=== PATIENT | male | born 1950 | race Caucasian/White ===

== ENCOUNTER 2018-03-31 17:37 | Inpatient (IN) | payer MEDICARE ==
[2018-03-31] MEDS ORDERED: Oseltamivir 75 MG CAP PO SCH (18:30)
[2018-03-31 19:40] LABS: CKMB 5.9 ng/mL (0-6.6)
[2018-03-31 21:19] LABS: Troponin I 0.414 ng/mL (< 0.028)
[2018-03-31] MEDS ORDERED: Aspirin Chewable 81 MG TAB PO SCH (23:00)
--- NOTE | 2018-04-01 00:46 | CON ---
DATE OF CONSULTATION: CONSULTING PHYSICIAN: Omar Tobias MD REQUESTING PHYSICIAN: ER physician. REASON FOR CONSULTATION: Need for maintenance hemodialysis. IMPRESSION: 1. End-stage renal disease, hemodialysis dependent on Wednesday, Wednesday, Wednesday, due for dialysis tomorrow. 2. Chronic obstructive pulmonary disease exacerbation. 3. Congestive heart failure. PLAN: 1. There is no emergent indication for renal replacement therapy (hemodialysis); therefore, the patient will remain on the normal schedule of Wednesday, Wednesday, and Wednesday. 2. Further management to be dependent on the clinical course as well as the further recommendation from the primary service. HISTORY OF PRESENT ILLNESS: A 67-year-old gentleman with end-stage renal disease, he is hemodialysis dependent on a Wednesday, Wednesday, and Wednesday under the supervision of Dr. Crowe, who presented here as a transfer from , where the patient initially presented with cough productive of greenish sputum with blood tinge. The patient felt to develop these progressively worsening cough with fever for about a week and felt the patient is more or less in COPD exacerbation and transferred over to us here for further management to include the renal replacement therapy. PAST MEDICAL HISTORY: Significant for end-stage renal disease, hemodialysis dependent; type 2 diabetes, hypertension. MEDICATIONS: Reviewed and as documented on [employer]. ALLERGIES: NO KNOWN DRUG ALLERGIES. FAMILY HISTORY: Not significantly related to presenting illness. REVIEW OF SYSTEMS: As documented in the body of the history. All other systems were reviewed and found not to be significantly related to present illness. PHYSICAL EXAMINATION: GENERAL: The patient was noted to be hemodynamically stable. HEENT: Unremarkable. CARDIOVASCULAR SYSTEM: First and second heart sounds were heard. RESPIRATORY SYSTEM: Clear to auscultation. DIGESTIVE SYSTEM: Revealed a benign abdomen. EXTREMITIES: No peripheral edema. SKIN EXAMINATION: No new gross rash. LYMPHATICS: No peripheral lymphadenopathy. SUMMARY: A 67-year-old gentleman with end-stage renal disease, who presented here as a transfer with possible COPD exacerbation. Thank you for this consultation. We will follow with you. Job ID: [id number]
[2018-04-01] MEDS ORDERED: Dextrose 5% in Water 1,000 ML IV PRN (01:04)
[2018-04-01] MEDS ORDERED: Nitroglycerin 0.4 MG TAB (25 Tab Bottle) PO PRN (01:04)
[2018-04-01] MEDS ORDERED: Insulin Regular 300 UNITS/3 ML VIAL SC PRN ×2 (01:04)
[2018-04-01] MEDS ORDERED: Dextrose 50% Abboject 50 ML SYRINGE SLOW IVP PRN (01:04)
[2018-04-01] MEDS ORDERED: Senokot S 8.6-50 MG TAB PO PRN (01:09)
[2018-04-01] MEDS ORDERED: Ondansetron ODT 4 MG TAB PO PRN (01:09)
[2018-04-01] MEDS ORDERED: Ondansetron PF 4 MG/2 ML Vial IVP PRN (01:09)
[2018-04-01] MEDS ORDERED: Acetaminophen 325 MG TAB PO PRN (01:09)
[2018-04-01 01:10] LABS: Critical Call Chem Troponin I RESULT DECREASING
[2018-04-01] MEDS ORDERED: Doxycycline 100 MG CAP PO SCH (01:15)
[2018-04-01] MEDS ORDERED: predniSONE 20 MG TAB PO SCH (01:15)
--- NOTE | 2018-04-01 01:29 | HP ---
The patient was seen and examined on 03/31/2018. PRIMARY BANK RECONCILIATOR: Dr. Nelson. PRIMARY CARE PHYSICIAN: Dr. Smith. CHIEF COMPLAINT: Cough. HISTORY OF PRESENT ILLNESS: The patient is a 67-year-old male with diabetes mellitus type 2, hypertension; chronic respiratory failure, on home oxygen at night; and end-stage renal disease, on hemodialysis; presented to the emergency room at [facility] with cough. The cough has been ongoing for last 1 week or so. It is progressively getting worse. He has been having greenish phlegm. He also had shortness of breath and wheezing. No significant leg swelling reported. He had intermittent chills. No aggravating or relieving factor reported. No sick contacts reported. He denies any orthopnea, paroxysmal nocturnal dyspnea, syncope, palpitations, or recent travel. In the emergency room, initial vital signs showed temperature 98.7, respirations 20, pulse of 82, blood pressure 168/99 with O2 saturation 92% on 2 L nasal cannula. Chest x-ray was negative for significant infiltrate. His troponin was 0.4 with CK-MB 5.6. BNP was 1949. His troponin last year was 0.1. Influenza testing was negative. He received Lasix in the emergency room. PAST MEDICAL HISTORY: 1. End-stage renal disease, on hemodialysis Wednesday, Wednesday, Wednesday. 2. Coronary artery disease. 3. COPD. 4. History of [place]. 5. Hyperlipidemia. 6. Chronic respiratory failure, on home oxygen. 7. Congestive heart failure. Ejection fraction 20% in the past. 8. Diabetes mellitus type 2. 9. Hypertension. PAST SURGICAL HISTORY: 1. Pacemaker placement. 2. Hernia repair. 3. Coronary stent placement. 4. Dialysis access. ALLERGIES: THE PATIENT DENIES ANY DRUG ALLERGIES. CURRENT HOME MEDICATION: The patient is unable to recall any of his home medication. Family to get accurate list of medications. SOCIAL HISTORY: The patient currently lives at home with his family. He makes his own decision with the help of his family. No current use of smoking, alcohol, or drug use. FAMILY HISTORY: Positive for heart disease. REVIEW OF SYSTEMS: All other review of systems were reviewed and were found negative. PHYSICAL EXAMINATION: VITAL SIGNS: As discussed above. GENERAL: A 67-year-old male, in mild distress due to coughing. HEENT: Head is atraumatic, normocephalic. Sclerae anicteric. Moist mucous membranes. No oral lesion appreciated. NECK: Supple. No JVD appreciated. LUNGS: Bilateral wheezing with scattered rhonchi. There were few rales at bases. HEART: S1 and S2 present. Regular rate and rhythm. No heaves or pulsation noted. ABDOMEN: Obese, soft. Bowel sounds present. EXTREMITIES: 1+ edema in bilateral lower extremity next. SKIN: Warm and dry. LYMPH NODES: No palpable lymph nodes in the neck. PERIPHERAL VASCULAR: Radial pulses palpable bilaterally. MUSCULOSKELETAL: No joint swelling or tenderness. LABORATORY FINDINGS: WBC 8.4 with neutrophils 76.6, hemoglobin 14.5, hematocrit 46.3. Chemistry showed sodium 140, potassium 4.7, chloride 100, bicarb 26, BUN 44, creatinine 6.34. Troponin 0.401 with normal CK-MB. BNP 1950. LFTs in normal range. Influenza testing was negative. Chest x-ray by my review showed cardiomegaly without definite infiltrate. EKG by my review showed paced rhythm. IMPRESSION: 1. Acute hypoxic respiratory failure secondary to acute bronchitis, suspected pneumonia, questionable viral. 2. Chronic obstructive pulmonary disease exacerbation. 3. Chronic systolic heart failure, ejection fraction 20% range in the past. 4. End-stage renal disease, on hemodialysis. 5. Diabetes mellitus type 2. 6. Coronary artery disease, status post stent placement in the past. 7. Hypertension. 8. Elevated troponins, probably secondary to demand ischemia. 9. Hyperlipidemia. PLAN: 1. The patient will be monitored in the telemetry unit due to elevated cardiac enzymes. We will continue oxygen, nebulizer treatments. Echocardiogram will be obtained. We will confirm all of his home medications. Insulin sliding scale. Empiric antibiotics for pneumonia. We will get respiratory viral panel. Nephrology consult for dialysis. Please note, the patient has also already been seen by Dr. Nelson. Recheck labs in a.m. Cardiology will be consulted as well. 2. Plan of care was discussed with the patient in detail. He stated understanding. 3. The patient will require 2 to 3 days for stabilization. Job ID: [id number]
[2018-04-01] MEDS: cefTRIAXone\\ROCEPHIN 1 GM in Sodium Chloride 0.9% 100 ML IVPB SCH (01:41)
[2018-04-01] MEDS: Diabetic Tussin 200 MG/10 ML UDCUP PO PRN (01:41)
[2018-04-01 02:03] LABS: INR-International Normal Ratio 1.3; PTT 33.7 SEC (22.9-36.1); Prothrombin Time 16.1 SEC (12.0-14.7)
[2018-04-01 02:15] LABS: Band 2 % (5-11); Hemoglobin 13.6 g/dL (14.0-18.0); Lymphocytes 5 % (21-51); MDiff Complete? YES; Macrocytosis SLIGHT = 6-15 cells (100X) (0-5/hpf); Mean Corpuscular HGB CONC 31.1 g/dL (32.0-36.0); Mean Corpuscular Hemoglobin 32.2 pg (27.0-31.0); Mean Platelet Volume 7.1 fL (7.4-10.4); Monocytes 8 % (0-10); Neutrophil 85 % (42-75); Platelet Count 178 thou/uL (130-400); Platelet Morphology Comment Appears Adequate; Red Blood Cell (RBC) Count 4.21 mill/uL (4.70-6.10); White Blood Cell (WBC) Count 6.5 thou/uL (4.8-10.8)
[2018-04-01 02:19] LABS: Anion Gap 20 mmol/L (10-20); BUN (Urea Nitrogen) 61 mg/dL (8.4-25.7); Calc. Creatinine Clearance 0 mL/min (70-130); Calcium 8.8 mg/dL (7.8-10.44); Carbon Dioxide 22 mmol/L (23-31); Chloride 99 mmol/L (98-107); Estimated GFR-MDRD 9; Glucose 123 mg/dL (80-115); Potassium 4.5 mmol/L (3.5-5.1); Sodium 136 mmol/L (136-145)
[2018-04-01 02:34] VITALS: BMI 35.6
[2018-04-01] MEDS: Cyanocobalamin (Vitamin B-12) 1,000 MCG TAB PO SCH (09:00)
[2018-04-01] MEDS: Folic Acid 1 MG TAB PO SCH (09:00)
[2018-04-01] MEDS: Aspirin 325 MG TAB PO SCH (09:00)
[2018-04-01] MEDS: Doxycycline 100 MG CAP PO SCH ×2 (09:00→20:47)
[2018-04-01] MEDS: Famotidine 20 MG TAB PO SCH ×2 (09:00→20:49)
[2018-04-01] MEDS ORDERED: Heparin 10,000 UNITS/ 10 ML VIAL ONE (11:00)
[2018-04-01] MEDS: guaiFENesin ER 600 MG TAB PO SCH ×2 (12:38→20:49)
--- NOTE | 2018-04-01 12:43 | PDOC.PN ---
- Subjective Encounter Start Date: 04/01/18 Encounter Start Time: 10:20 Subjective: sob is better -: no chest pain or palp -: gets HD on M/W/F - Objective Resuscitation Status - Order Detail: 04/01/18 01:09 Resuscitation Status Routine Resuscitation Status: FULL: Full Resuscitation MAR Reviewed: Yes Vital Signs & Weight: Vital Signs (12 hours) Temp Pulse Resp BP Pulse Ox 04/01/18 08:06 96 04/01/18 08:04 90 L 04/01/18 08:01 84 169/72 H 88 L 04/01/18 07:58 98.1 F 82 18 187/72 H 86 L 04/01/18 06:40 90 L 04/01/18 06:37 81 16 04/01/18 04:00 98.4 F 81 18 177/79 H 96 04/01/18 01:50 83 16 Weight Weight 269 lb 14.4 oz I&O: 03/31/18 04/01/18 04/02/18 06:59 06:59 06:59 Intake Total 300 Output Total 200 Balance 100 Result Diagrams: 04/01/18 01:39 04/01/18 01:39 Additional Labs: Accuchecks 04/01/18 05:26 POC Glucose 126 H Phys Exam - Physical Examination HEENT: PERRLA, sclera anicteric Neck: no JVD, supple Respiratory: no rales, wheezing present Cardiovascular: RRR, no significant murmur Gastrointestinal: soft, non-tender, positive bowel sounds Musculoskeletal: pulses present, edema present Neurological: non-focal, moves all 4 limbs Psychiatric: normal affect, A&O x 3 Dx/Plan (1) COPD exacerbation Code(s): J44.1 - CHRONIC OBSTRUCTIVE PULMONARY DISEASE W (ACUTE) EXACERBATION Status: Acute (2) Volume overload Code(s): E87.70 - FLUID OVERLOAD, UNSPECIFIED Status: Acute (3) ESRD (end stage renal disease) on dialysis Code(s): N18.6 - END STAGE RENAL DISEASE; Z99.2 - DEPENDENCE ON RENAL DIALYSIS Status: Chronic (4) Obesity Code(s): E66.9 - OBESITY, UNSPECIFIED Status: Chronic (5) CAD (coronary artery disease) Code(s): I25.10 - ATHSCL HEART DISEASE OF [place] CORONARY ARTERY W/O ANG PCTRS Status: Chronic Qualifiers: Coronary Disease-Associated Artery/Lesion type: [place] artery [place] vs. transplanted heart: [place] heart Associated angina: with stable angina Qualified Code(s): I25.118 - Atherosclerotic heart disease of [place] coronary artery with other forms of angina pectoris (6) Acute exacerbation of CHF (congestive heart failure) Code(s): I50.9 - HEART FAILURE, UNSPECIFIED Status: Acute Qualifiers: Heart failure type: combined systolic and diastolic Qualified Code(s): I50.43 - Acute on chronic combined systolic (congestive) and diastolic ( congestive) heart failure Comment: ef of 20% (7) DM type 2 (diabetes mellitus, type 2) Status: Chronic Qualifiers: Diabetes mellitus group home insulin use: with terminal block assembler use Diabetes mellitus complication status: with kidney complications Diabetes mellitus complication detail: with chronic kidney disease Chronic kidney disease stage : on chronic dialysis Qualified Code(s): E11.22 - Type 2 diabetes mellitus with diabetic chronic kidney disease; N18.6 - End stage renal disease; Z79.4 - halfway (current) use of insulin; Z99.2 - Dependence on renal dialysis (8) HTN (hypertension) Code(s): I10 - ESSENTIAL (PRIMARY) HYPERTENSION Status: Chronic Qualifiers: Hypertension type: essential hypertension Qualified Code(s): I10 - Essential (primary) hypertension (9) Demand ischemia of myocardium Code(s): I24.8 - OTHER FORMS OF ACUTE ISCHEMIC HEART DISEASE Status: Acute (10) Afib Code(s): I48.91 - UNSPECIFIED ATRIAL FIBRILLATION Status: Chronic Qualifiers: Atrial fibrillation type: paroxysmal Qualified Code(s): I48.0 - Paroxysmal atrial fibrillation - Plan is on duonebs, ceftriaxone, doxy and asp -: will continue home dose of amiod, eliquis, home insulin -: for HD with fluid removal today -: to amb as tolerated in hallway (amb indep at home) * . Review of Systems - Medications/Allergies Allergies/Adverse Reactions: Allergies Allergy/AdvReac Type Severity Reaction Status Date / Time unknown antibiotic Allergy renal Uncoded 10/05/13 11:50 failure Medications: Current Medications Acetaminophen (Tylenol) 650 mg PO Q4H PRN PRN Reason: Headache/Fever/Mild Pain (1-3) Albuterol/Ipratropium (Duoneb) 3 ml NEB [id number] [place] Last Admin: 04/01/18 11:28 Dose: Not Given Albuterol/Ipratropium (Duoneb) 3 ml NEB [id number] PRN PRN Reason: SOB &/or Wheezing Aspirin (Aspirin) 325 mg PO DAILY [facility] Cyanocobalamin (Vitamin B-12) 1,000 mcg PO DAILY [facility] Dextrose/Water (Dextrose 50%) 25 gm SLOW IVP PRN PRN PRN Reason: Hypoglycemia Doxycycline Hyclate (Vibramycin) 100 mg PO BID [facility] Famotidine (Pepcid) 20 mg PO BID [facility] Folic Acid (Folvite) 1 mg PO DAILY [facility] Glucagon (Glucagon) 1 mg IM PRN PRN PRN Reason: Hypoglycemia Guaifenesin (Mucinex) 600 mg PO Q12HR [facility] Last Admin: 04/01/18 12:38 Dose: Not Given Guaifenesin (Robitussin Sf) 200 mg PO Q4H PRN PRN Reason: Cough Last Admin: 04/01/18 01:41 Dose: 200 mg Ceftriaxone Sodium 1 gm/ (Sodium Chloride) 100 mls @ 200 mls/hr IVPB Q24HR [facility] Last Admin: 04/01/18 01:41 Dose: 100 mls Dextrose/Water (D5w) 1,000 mls @ 0 mls/hr IV .Q0M PRN PRN Reason: Hypoglycemia Insulin Human Regular (Humulin R) 0 units SC .MODERATE SLIDING SC PRN PRN Reason: Moderate Correctional Scale Insulin Human Regular (Humulin R) 0 units SC .BEDTIME SLIDING SC PRN PRN Reason: Bedtime Correctional Scale Nitroglycerin (Nitrostat) 0.4 mg PO Q5MIN PRN PRN Reason: Chest Pain Ondansetron HCl (Zofran Odt) 4 mg PO Q6H PRN PRN Reason: Nausea/Vomiting Ondansetron HCl (Zofran) 4 mg IVP Q6H PRN PRN Reason: Nausea/Vomiting Senna/Docusate Sodium (Senokot S) 2 tab PO BID PRN PRN Reason: Constipation
--- NOTE | 2018-04-01 18:25 | CON ---
DATE OF CONSULTATION: 04/01/2018 TYPE OF CONSULTATION: Cardiology. REASON FOR CONSULTATION: Elevated troponin. HISTORY OF PRESENT ILLNESS: Mr. Eaton is a pleasant 67-year-old white gentleman, patient of Dr. Francisco in [place] [facility] [place] [facility], who comes to the hospital for a cough. He has COPD and was admitted, diagnosed with possible COPD exacerbation with bronchitis and admitted to the hospital. In the process, he had some troponins drawn that were mildly elevated. So, Cardiology is being consulted. He has end-stage renal disease on hemodialysis Wednesday, Wednesday, and Wednesday with Dr. Henry. He also has a history of coronary artery disease and reduced ejection fraction of 20%. Currently, he denies any chest pain, tightness, or pressure. His shortness of breath is a little bit worse than normal, but is better since he got dialyzed this morning. PAST MEDICAL HISTORY: 1. End-stage renal disease on hemodialysis. 2. Coronary artery disease. 3. COPD. 4. History of [place] in the past. 5. Hyperlipidemia. 6. Chronic respiratory failure on home O2. 7. History of heart failure with EF of 20% on most recent evaluation in the hospital. 8. Type 2 diabetes. 9. Hypertension. PAST SURGICAL HISTORY: 1. Pacemaker placement, possible AICD. 2. Hernia repair. 3. Coronary stent placement. 4. Dialysis access. ALLERGIES: NO KNOWN DRUG ALLERGIES. OUTPATIENT MEDICATIONS: 1. Lipitor 80 mg at bedtime. 2. Levemir. 3. Amiodarone 2 tablets b.i.d. 4. Humalog. 5. Eliquis 5 mg b.i.d. 6. Aspirin 325 a day. SOCIAL HISTORY: No alcohol, tobacco, or drugs. FAMILY HISTORY: No early coronary artery disease. REVIEW OF SYSTEMS: A 12-point review of systems was done and was found to be negative unless stated in the history of present illness. PHYSICAL EXAMINATION: VITAL SIGNS: Temperature 97.7, pulse 79, respiratory rate 16, saturation 95% on 3 L nasal cannula, and blood pressure 141/50. GENERAL: Awake, alert, and oriented x3, in no distress. HEENT: Normocephalic and atraumatic. NECK: Supple. LUNGS: Have reduced breath sounds bilaterally. CARDIOVASCULAR: S1 and S2. No S3 or S4. Irregular heart rate in the 80s. ABDOMEN: Soft. Positive bowel sounds. EXTREMITIES: 1+ edema. SKIN: Warm and dry. LABORATORY DATA: Laboratory work was reviewed. CBC with a white count of 6.5, hemoglobin of 13, hematocrit of 43, and platelet count of 178. Coags were negative. Chemistry with a troponin of 0.4, 0.4, and 0.3 and creatinine is 6. ASSESSMENT: 1. Non-ST elevation myocardial infarction. 2. History of ischemic cardiomyopathy, ejection fraction of 20% most recently. 3. End-stage renal disease. 4. Chronic obstructive pulmonary disease with acute exacerbation. PLAN: 1. Most likely demand ischemia from his acute COPD exacerbation. He is not having any anginal symptoms at this time. Conservative therapy for now. 2. Continue pulmonary toilet per primary team. 3. Continue hemodialysis per Dr. Henry and Dr. Nelson. 4. Echocardiogram to be done. 5. We will follow. No plan to do heart catheterization at this time. He will have to be discharged home, probably follow up as an outpatient with his primary clinical data abstractor and he will need if not done in the last year, further risk stratification with a stress test. Job ID: [id number]
--- NOTE | 2018-04-01 19:44 | PRG ---
DATE OF SERVICE: 04/01/2018 SUBJECTIVE: The patient is seen and examined. Seems to be doing okay at dialysis. The patient seems to become hypoxic whenever the patient falls asleep, has significant sleep apnea. The patient noted to be hemodynamically stable. OBJECTIVE: VITAL SIGNS: Afebrile, temperature 97.7, pulse 79, respiratory rate of 16, O2 saturations are 95% on 3 L, and blood pressure 141/50. HEENT: Unremarkable. CARDIOVASCULAR SYSTEM: First and second heart sounds were heard. EXTREMITIES: Showed no significant peripheral edema except the access hand. NEURO: Alert and oriented. No lateralizing sign. LYMPHATICS: No peripheral lymphadenopathy. IMPRESSION: 1. End-stage renal disease on hemodialysis. 2. Chronic obstructive pulmonary disease. 3. Systolic congestive heart failure. PLAN: The patient to continue with dialysis with ultrafiltration as tolerated by hemodynamics for further management to be dependent on the clinical course. Job ID: [id number]
[2018-04-01] MEDS: Insulin Glargine 5 UNITS in Pre-Filled Syringe 1 EACH SC SCH (20:46)
[2018-04-01] MEDS: Atorvastatin Calcium 40 MG TAB PO SCH (20:47)
[2018-04-01] MEDS: Amiodarone 200 MG TAB PO SCH (20:48)
[2018-04-01] MEDS: Apixaban 5 MG TAB PO SCH (20:49)
[2018-04-01] MEDS ORDERED: Amiodarone 200 MG TAB PO SCH (21:00)
[2018-04-01] MEDS ORDERED: Non-Formulary Item 1 EACH (Atorvastatin Calcium [Lipitor] 80 MG) PO SCH (21:00)
[2018-04-01] MEDS ORDERED: Levemir Flexpen 100 UNITS/ML PEN SC SCH (21:00)
[2018-04-02] MEDS: cefTRIAXone\\ROCEPHIN 1 GM in Sodium Chloride 0.9% 100 ML IVPB SCH (02:04)
[2018-04-02 06:44] LABS: #Basophils 0.1 thou/uL (0.0-0.2); #Eosinphils 0.2 thou/uL (0.0-0.7); #Lymphocytes 0.9 thou/uL (1.20-3.40); #Monocytes 0.9 thou/uL (0.11-0.59); #Neutrophils 4.8 thou/uL (1.40-6.50); %Basophils 0.8 % (0.0-1.0); %Eosinophils 2.6 % (0.0-10.0); %Monocytes 13.8 % (0.0-10.0); %Neutrophils 69.9 % (42.0-75.0); Hemoglobin 14.2 g/dL (14.0-18.0); Mean Corpuscular HGB CONC 31.5 g/dL (32.0-36.0); Mean Corpuscular Hemoglobin 32.3 pg (27.0-31.0); Mean Platelet Volume 7.3 fL (7.4-10.4); Platelet Count 203 thou/uL (130-400); RBC Distribution Width 13.7 % (11.5-14.5); Red Blood Cell (RBC) Count 4.39 mill/uL (4.70-6.10); White Blood Cell (WBC) Count 6.8 thou/uL (4.8-10.8)
[2018-04-02 07:01] LABS: Anion Gap 18 mmol/L (10-20); BUN (Urea Nitrogen) 39 mg/dL (8.4-25.7); Calc. Creatinine Clearance 20 mL/min (70-130); Calcium 8.9 mg/dL (7.8-10.44); Carbon Dioxide 27 mmol/L (23-31); Chloride 97 mmol/L (98-107); Estimated GFR-MDRD 9; Glucose 128 mg/dL (80-115); Potassium 3.9 mmol/L (3.5-5.1); Sodium 138 mmol/L (136-145)
[2018-04-02] MEDS: Famotidine 20 MG TAB PO SCH ×2 (08:30→21:21)
[2018-04-02] MEDS: Aspirin 325 MG TAB PO SCH (08:30)
[2018-04-02] MEDS: Folic Acid 1 MG TAB PO SCH (08:30)
[2018-04-02] MEDS: Doxycycline 100 MG CAP PO SCH ×2 (08:30→21:20)
[2018-04-02] MEDS: guaiFENesin ER 600 MG TAB PO SCH ×2 (08:30→21:21)
[2018-04-02] MEDS: Cyanocobalamin (Vitamin B-12) 1,000 MCG TAB PO SCH (08:30)
[2018-04-02] MEDS: Apixaban 5 MG TAB PO SCH ×2 (08:30→21:21)
[2018-04-02] MEDS: Amiodarone 200 MG TAB PO SCH ×2 (08:30→21:20)
--- NOTE | 2018-04-02 14:22 | PDOC.PN ---
- Subjective Encounter Start Date: 04/02/18 Encounter Start Time: 11:00 Subjective: sob is better, no chest pain -: is amb in room per patient - Objective Resuscitation Status - Order Detail: 04/01/18 01:09 Resuscitation Status Routine Resuscitation Status: FULL: Full Resuscitation MAR Reviewed: Yes Vital Signs & Weight: Vital Signs (12 hours) Temp Pulse Resp BP BP Pulse Ox 04/02/18 12:08 98.5 F 74 18 190/86 H 92 L 04/02/18 10:59 72 16 04/02/18 08:45 99 04/02/18 07:28 90 L 04/02/18 07:27 68 16 04/02/18 07:12 97.4 F L 71 18 142/85 H 99 04/02/18 04:05 98.2 F 79 14 142/75 H 95 04/02/18 03:23 92 L 04/02/18 02:36 73 18 92 L Weight Weight 259 lb 6.4 oz I&O: 04/01/18 04/02/18 04/03/18 06:59 06:59 06:59 Intake Total 300 400 Output Total 200 5875 Balance 100 -5475 Result Diagrams: 04/02/18 05:45 04/02/18 05:45 Additional Labs: Accuchecks 04/02/18 04/02/18 04/01/18 10:31 05:29 16:54 POC Glucose 119 H 123 H 190 H Phys Exam - Physical Examination HEENT: PERRLA, moist MMs Neck: no JVD, supple Respiratory: no wheezing, no rales rhonchi+, basal rales+ Cardiovascular: RRR, no significant murmur Gastrointestinal: soft, non-tender, positive bowel sounds Musculoskeletal: no edema, pulses present Neurological: non-focal, moves all 4 limbs Psychiatric: normal affect, A&O x 3 Dx/Plan (1) COPD exacerbation Code(s): J44.1 - CHRONIC OBSTRUCTIVE PULMONARY DISEASE W (ACUTE) EXACERBATION Status: Acute (2) Volume overload Code(s): E87.70 - FLUID OVERLOAD, UNSPECIFIED Status: Acute (3) ESRD (end stage renal disease) on dialysis Code(s): N18.6 - END STAGE RENAL DISEASE; Z99.2 - DEPENDENCE ON RENAL DIALYSIS Status: Chronic (4) Obesity Code(s): E66.9 - OBESITY, UNSPECIFIED Status: Chronic (5) CAD (coronary artery disease) Code(s): I25.10 - ATHSCL HEART DISEASE OF [place] CORONARY ARTERY W/O ANG PCTRS Status: Chronic Qualifiers: Coronary Disease-Associated Artery/Lesion type: [place] artery [place] vs. transplanted heart: [place] heart Associated angina: with stable angina Qualified Code(s): I25.118 - Atherosclerotic heart disease of [place] coronary artery with other forms of angina pectoris (6) Acute exacerbation of CHF (congestive heart failure) Code(s): I50.9 - HEART FAILURE, UNSPECIFIED Status: Acute Qualifiers: Heart failure type: combined systolic and diastolic Qualified Code(s): I50.43 - Acute on chronic combined systolic (congestive) and diastolic ( congestive) heart failure Comment: ef of 20% (7) DM type 2 (diabetes mellitus, type 2) Status: Chronic Qualifiers: Diabetes mellitus moth exterminator insulin use: with moth exterminator use Diabetes mellitus complication status: with kidney complications Diabetes mellitus complication detail: with chronic kidney disease Chronic kidney disease stage : on chronic dialysis Qualified Code(s): E11.22 - Type 2 diabetes mellitus with diabetic chronic kidney disease; N18.6 - End stage renal disease; Z79.4 - roasterman (current) use of insulin; Z99.2 - Dependence on renal dialysis (8) HTN (hypertension) Code(s): I10 - ESSENTIAL (PRIMARY) HYPERTENSION Status: Chronic Qualifiers: Hypertension type: essential hypertension Qualified Code(s): I10 - Essential (primary) hypertension (9) Demand ischemia of myocardium Code(s): I24.8 - OTHER FORMS OF ACUTE ISCHEMIC HEART DISEASE Status: Acute (10) Afib Code(s): I48.91 - UNSPECIFIED ATRIAL FIBRILLATION Status: Chronic Qualifiers: Atrial fibrillation type: paroxysmal Qualified Code(s): I48.0 - Paroxysmal atrial fibrillation - Plan is on ceftriaxone and doxy, will switch to omnicef in am -: continue asp, nebs, eliquis, amiodarone and lantus -: will add procardia daily starting now -: ef of 20% with dilated rv and rvsp of 45 -: needs some more fluid removal with his scheduled HD * . Review of Systems - Medications/Allergies Allergies/Adverse Reactions: Allergies Allergy/AdvReac Type Severity Reaction Status Date / Time unknown antibiotic Allergy renal Uncoded 10/05/13 11:50 failure Medications: Current Medications Acetaminophen (Tylenol) 650 mg PO Q4H PRN PRN Reason: Headache/Fever/Mild Pain (1-3) Albuterol/Ipratropium (Duoneb) 3 ml NEB [id number] [facility] Last Admin: 04/02/18 10:59 Dose: 3 ml Albuterol/Ipratropium (Duoneb) 3 ml NEB [id number] PRN PRN Reason: SOB &/or Wheezing Amiodarone HCl (Cordarone) 400 mg PO BID [facility] Last Admin: 04/02/18 08:30 Dose: 400 mg Apixaban (Eliquis) 5 mg PO BID [facility] Last Admin: 04/02/18 08:30 Dose: 5 mg Aspirin (Aspirin) 325 mg PO DAILY [facility] Last Admin: 04/02/18 08:30 Dose: 325 mg Atorvastatin Calcium (Lipitor) 80 mg PO HS [facility] Last Admin: 04/01/18 20:47 Dose: 80 mg Cyanocobalamin (Vitamin B-12) 1,000 mcg PO DAILY [facility] Last Admin: 04/02/18 08:30 Dose: 1,000 mcg Dextrose/Water (Dextrose 50%) 25 gm SLOW IVP PRN PRN PRN Reason: Hypoglycemia Doxycycline Hyclate (Vibramycin) 100 mg PO BID [facility] Last Admin: 04/02/18 08:30 Dose: 100 mg Famotidine (Pepcid) 20 mg PO BID [facility] Last Admin: 04/02/18 08:30 Dose: 20 mg Folic Acid (Folvite) 1 mg PO DAILY [facility] Last Admin: 04/02/18 08:30 Dose: 1 mg Glucagon (Glucagon) 1 mg IM PRN PRN PRN Reason: Hypoglycemia Guaifenesin (Mucinex) 600 mg PO Q12HR [facility] Last Admin: 04/02/18 08:30 Dose: 600 mg Guaifenesin (Robitussin Sf) 200 mg PO Q4H PRN PRN Reason: Cough Last Admin: 04/01/18 01:41 Dose: 200 mg Ceftriaxone Sodium 1 gm/ (Sodium Chloride) 100 mls @ 200 mls/hr IVPB Q24HR [facility] Last Admin: 04/02/18 02:04 Dose: 100 mls Dextrose/Water (D5w) 1,000 mls @ 0 mls/hr IV .Q0M PRN PRN Reason: Hypoglycemia Insulin Glargine 5 units/ (Miscellaneous Medication) 0.05 mls @ 0 mls/hr SC HS [facility] Last Admin: 04/01/18 20:46 Dose: 0.05 mls Insulin Human Regular (Humulin R) 0 units SC .MODERATE SLIDING SC PRN PRN Reason: Moderate Correctional Scale Insulin Human Regular (Humulin R) 0 units SC .BEDTIME SLIDING SC PRN PRN Reason: Bedtime Correctional Scale Nitroglycerin (Nitrostat) 0.4 mg PO Q5MIN PRN PRN Reason: Chest Pain Ondansetron HCl (Zofran Odt) 4 mg PO Q6H PRN PRN Reason: Nausea/Vomiting Ondansetron HCl (Zofran) 4 mg IVP Q6H PRN PRN Reason: Nausea/Vomiting Senna/Docusate Sodium (Senokot S) 2 tab PO BID PRN PRN Reason: Constipation Sodium Chloride (Flush - Normal Saline) 10 ml IVF Q12HR [facility] Last Admin: 04/02/18 08:30 Dose: 10 ml Sodium Chloride (Flush - Normal Saline) 10 ml IVF PRN PRN PRN Reason: Saline Flush
--- NOTE | 2018-04-02 15:45 | PDOC.CTH ---
Cardiology Progress Note - Subjective Doing well. No chest pain, tightness, pressure. - Objective Vital Signs Temp Pulse Resp BP BP Pulse Ox 04/02/18 14:31 74 12 04/02/18 12:08 98.5 F 74 18 190/86 H 92 L 04/02/18 10:59 72 16 04/02/18 08:45 99 04/02/18 07:28 90 L 04/02/18 07:27 68 16 04/02/18 07:12 97.4 F L 71 18 142/85 H 99 04/02/18 04:05 98.2 F 79 14 142/75 H 95 Weight 259 lb 6.4 oz 04/01/18 04/02/18 04/03/18 06:59 06:59 06:59 Intake Total 300 400 Output Total 200 5875 Balance 100 -5475 - Physical Examination General/Neuro: alert & oriented x3, NAD Neck: no JVD present Lungs: CTA, unlabored respirations Heart: RRR Abdomen: NT/ND Extremities: + edema B (1+) - Telemetry Telemetry Rhythm: NSR, BiV paced. - Labs Result Diagrams: 04/02/18 05:45 04/02/18 05:45 Troponin/CKMB CK-MB (CK-2) 5.9 ng/mL (0-6.6) 03/31/18 18:37 Troponin I 0.390 ng/mL (< 0.028) H* 04/01/18 00:31 - Assessment/Plan 1. NSTEMI 2. Ischemic CM EF at 15-20% 3. AICD 4. ESRD 5. COPD with acute exacerbation PLAN: - Elevated troponins likely demand ischemia from acute bronchitis. - CV stable. - Will sign off. Please call [facility] any questions.
[2018-04-02] MEDS: Carvedilol 6.25 MG TAB PO SCH (16:59)
--- NOTE | 2018-04-02 20:00 | PRG ---
DATE OF SERVICE: 04/02/2018 SUBJECTIVE: The patient is seen and examined. Noted with the following vital signs. OBJECTIVE: VITAL SIGNS: Afebrile, temperature 97.9, pulse 69, respiratory rate of 18, and O2 saturations are 99% with blood pressure 176/80. HEENT: Unremarkable. CARDIOVASCULAR SYSTEM: First and second heart sounds were heard. RESPIRATORY SYSTEM: Clear to auscultation. DIGESTIVE SYSTEM: Revealed a benign abdomen. Positive bowel sounds. EXTREMITIES: No peripheral edema. SKIN: No new gross rash. LYMPHATICS: No peripheral lymphadenopathy. IMPRESSION: 1. End-stage renal disease, hemodialysis dependent. 2. Hypervolemia with shortness of breath. 3. Sleep apnea. 4. Morbid obesity. PLAN: 1. The patient to continue with a Wednesday, Wednesday, and Wednesday hemodialysis. 2. From the renal standpoint, the patient is good for discharge. Job ID: [id number]
[2018-04-02] MEDS: hydrALAZINE 25 MG TAB PO SCH (21:20)
[2018-04-02] MEDS: Insulin Glargine 5 UNITS in Pre-Filled Syringe 1 EACH SC SCH (21:22)
[2018-04-02] MEDS: Atorvastatin Calcium 40 MG TAB PO SCH (21:24)
[2018-04-03] MEDS: Diabetic Tussin 200 MG/10 ML UDCUP PO PRN (02:23)
[2018-04-03] MEDS: cefTRIAXone\\ROCEPHIN 1 GM in Sodium Chloride 0.9% 100 ML IVPB SCH (02:23)
[2018-04-03 08:02] VITALS: TEMP 98
[2018-04-03] MEDS ORDERED: Losartan 25 MG TAB PO SCH (09:00)
[2018-04-03] MEDS: hydrALAZINE 25 MG TAB PO SCH (09:14)
[2018-04-03] MEDS: guaiFENesin ER 600 MG TAB PO SCH (09:15)
[2018-04-03] MEDS: Carvedilol 6.25 MG TAB PO SCH (09:15)
[2018-04-03] MEDS: Folic Acid 1 MG TAB PO SCH (09:15)
[2018-04-03] MEDS: Apixaban 5 MG TAB PO SCH (09:15)
[2018-04-03] MEDS: Famotidine 20 MG TAB PO SCH (09:15)
[2018-04-03] MEDS: Amiodarone 200 MG TAB PO SCH (09:15)
[2018-04-03] MEDS: Doxycycline 100 MG CAP PO SCH (09:15)
[2018-04-03] MEDS: Cyanocobalamin (Vitamin B-12) 1,000 MCG TAB PO SCH (09:15)
[2018-04-03] MEDS: Aspirin 325 MG TAB PO SCH (09:15)
--- NOTE | 2018-04-03 12:01 | PDOC.PN ---
- Subjective Encounter Start Date: 04/03/18 Encounter Start Time: 09:00 Subjective: no sob or palp -: feels better -: is amb in room - Objective Resuscitation Status - Order Detail: 04/01/18 01:09 Resuscitation Status Routine Resuscitation Status: FULL: Full Resuscitation MAR Reviewed: Yes Vital Signs & Weight: Vital Signs (12 hours) Temp Pulse Resp BP Pulse Ox 04/03/18 11:15 75 16 04/03/18 09:15 91 L 04/03/18 07:56 98.0 F 75 20 168/82 H 91 L 04/03/18 07:30 70 16 04/03/18 04:20 97.6 F 70 16 160/74 H 98 04/03/18 00:29 64 18 95 Weight Weight 262 lb 8 oz I&O: 04/02/18 04/03/18 04/04/18 06:59 06:59 06:59 Intake Total 400 240 Output Total 5875 450 Balance -5475 -210 Result Diagrams: 04/02/18 05:45 04/02/18 05:45 Additional Labs: Accuchecks 04/03/18 04/03/18 04/02/18 10:40 05:56 20:04 POC Glucose 164 H 117 H 126 H 04/02/18 16:18 POC Glucose 130 H Phys Exam - Physical Examination HEENT: PERRLA, moist MMs Neck: no JVD, supple Respiratory: no wheezing, no rales Cardiovascular: RRR, no significant murmur Gastrointestinal: soft, non-tender, positive bowel sounds Musculoskeletal: no edema, pulses present Neurological: non-focal, moves all 4 limbs Psychiatric: normal affect, A&O x 3 Dx/Plan (1) COPD exacerbation Code(s): J44.1 - CHRONIC OBSTRUCTIVE PULMONARY DISEASE W (ACUTE) EXACERBATION Status: Acute (2) Volume overload Code(s): E87.70 - FLUID OVERLOAD, UNSPECIFIED Status: Acute (3) ESRD (end stage renal disease) on dialysis Code(s): N18.6 - END STAGE RENAL DISEASE; Z99.2 - DEPENDENCE ON RENAL DIALYSIS Status: Chronic (4) Obesity Code(s): E66.9 - OBESITY, UNSPECIFIED Status: Chronic (5) CAD (coronary artery disease) Code(s): I25.10 - ATHSCL HEART DISEASE OF [place] CORONARY ARTERY W/O ANG PCTRS Status: Chronic Qualifiers: Coronary Disease-Associated Artery/Lesion type: [place] artery [place] vs. transplanted heart: [place] heart Associated angina: with stable angina Qualified Code(s): I25.118 - Atherosclerotic heart disease of [place] coronary artery with other forms of angina pectoris (6) Acute exacerbation of CHF (congestive heart failure) Code(s): I50.9 - HEART FAILURE, UNSPECIFIED Status: Acute Qualifiers: Heart failure type: combined systolic and diastolic Qualified Code(s): I50.43 - Acute on chronic combined systolic (congestive) and diastolic ( congestive) heart failure Comment: ef of 20% (7) DM type 2 (diabetes mellitus, type 2) Status: Chronic Qualifiers: Diabetes mellitus longterm insulin use: with intermediate designer use Diabetes mellitus complication status: with kidney complications Diabetes mellitus complication detail: with chronic kidney disease Chronic kidney disease stage : on chronic dialysis Qualified Code(s): E11.22 - Type 2 diabetes mellitus with diabetic chronic kidney disease; N18.6 - End stage renal disease; Z79.4 - terminal make up operator (current) use of insulin; Z99.2 - Dependence on renal dialysis (8) HTN (hypertension) Code(s): I10 - ESSENTIAL (PRIMARY) HYPERTENSION Status: Chronic Qualifiers: Hypertension type: essential hypertension Qualified Code(s): I10 - Essential (primary) hypertension (9) Demand ischemia of myocardium Code(s): I24.8 - OTHER FORMS OF ACUTE ISCHEMIC HEART DISEASE Status: Acute (10) Afib Code(s): I48.91 - UNSPECIFIED ATRIAL FIBRILLATION Status: Chronic Qualifiers: Atrial fibrillation type: paroxysmal Qualified Code(s): I48.0 - Paroxysmal atrial fibrillation - Plan hemostable -: dc home, wants low copay meds..cant afford -: on low dose lisinopril (k is normal), coreg, asp, amiodarone -: pt to check his pulse and BP twice daily and record for 10 days to f/u with -: -pcp. Has poor ef and needs to f/u with his cardio in 4 weeks. * .
[2018-04-03 12:03] VITALS: BP 125/58
--- NOTE | 2018-04-04 16:01 | DIS ---
DATE OF ADMISSION: 03/31/2018 DATE OF DISCHARGE: 04/03/2018 DISCHARGE DISPOSITION: Home. PRIMARY DISCHARGE DIAGNOSES: 1. Acute on chronic chronic obstructive pulmonary disease exacerbation. 2. Volume overload with acute on chronic congestive heart failure exacerbation with systolic dysfunction and ejection fraction of 20%, class B. 3. End-stage renal disease, on hemodialysis. 4. Obesity. 5. Coronary artery disease. 6. Diabetes mellitus type 2. 7. Hypertension. 8. Demand ischemia. 9. Chronic atrial fibrillation which is paroxysmal. PROCEDURES DONE DURING HOSPITALIZATION: Echo with 2D Doppler showed EF of 15%-20% with severe global hypokinesis. There was diastolic dysfunction, severely dilated RV with reduced RV systolic function. AICD was in place. RV systolic pressures were 45 mmHg. A small pericardial effusion without tamponade was seen. Respiratory virus PCR was negative. H and H 14 and 45, platelet count 203, BUN and creatinine 39 and 6.0. Troponin I was indeterminate, peaking up to 0.39. CK-MB 5.9. INPATIENT CONSULT: Omar Tobias MD, for Nephrology. DISCHARGE PLAN: The patient to follow up with his regulatory affairs associate in one week and primary care physician in one week. BRIEF COURSE DURING HOSPITALIZATION: The patient initially came to ER with complaints of shortness of breath and cough. He was essentially admitted for acute on chronic COPD exacerbation with volume overload and CHF exacerbation with systolic and diastolic dysfunction. The patient has had volume removal with dialysis done. He was on steroids along with nebulization and empiric antibiotics for COPD. The patient's medications were optimized prior to discharge. He was ambulating in the room and was at his baseline functional status. He was placed on a small dose of Coreg 6.25 mg twice daily due to reduced ejection fraction along with hydralazine 25 mg twice daily. The patient needs to follow up with his primary care physician in one week. He was counseled with regard to medication compliance and follow up with his primary care physician. The patient would benefit from outpatient followup with his game warden due to poor ejection fraction. He has an AICD. DISCHARGE MEDICATION: 1. Amiodarone 400 mg p.o. twice daily. 2. Eliquis 5 mg twice daily. 3. Aspirin 81 mg daily. 4. Lipitor 80 mg p.o. at bedtime. 5. Humalog 5 units subcu three times daily. 6. Levemir 5 units subcu at bedtime. 7. Albuterol inhaler q.6 hours p.r.n. 8. Coreg 6.25 mg p.o. twice daily. 9. Hydralazine 25 mg p.o. twice daily. ALLERGIES: NO KNOWN DRUG ALLERGIES. THE PATIENT HAS EXPRESSED HIS INABILITY TO BUY A LONG-ACTING BRONCHODILATOR DUE TO FINANCIAL REASON. PLEASE SEE A [id number] DOCUMENTATION FOR THE DAY OF DISCHARGE ON [employer]. Job ID: [id number]
== END 2018-04-03 11:50 | disposition home or self-care (01) | DRG 291 ==
LOC: ERS 17:37 → 2NO 22:01
PROVIDERS: ADMIT Emergency Medicine; ATTEND Emergency Medicine
PROC: 5A1D70Z Performance of Urinary Filtration, Intermittent, Less than 6 Hours Per Day (ICD-10-PCS; principal; 2018-03-31)
DX: I13.2 Hypertensive heart and chronic kidney disease with heart failure and with stage 5 chronic kidney disease, or end stage renal disease (principal); J96.21 Acute and chronic respiratory failure with hypoxia; N18.6 End stage renal disease; I50.43 Acute on chronic combined systolic (congestive) and diastolic (congestive) heart failure; J44.1 Chronic obstructive pulmonary disease with (acute) exacerbation; I24.8 Other forms of acute ischemic heart disease; J44.0 Chronic obstructive pulmonary disease with (acute) lower respiratory infection; I25.118 Atherosclerotic heart disease of native coronary artery with other forms of angina pectoris; I25.5 Ischemic cardiomyopathy; I48.0 Paroxysmal atrial fibrillation; J20.9 Acute bronchitis, unspecified; E11.22 Type 2 diabetes mellitus with diabetic chronic kidney disease; Z99.2 Dependence on renal dialysis; E66.01 Morbid (severe) obesity due to excess calories; I25.2 Old myocardial infarction; E78.5 Hyperlipidemia, unspecified; Z95.5 Presence of coronary angioplasty implant and graft; Z95.810 Presence of automatic (implantable) cardiac defibrillator; Z68.34 Body mass index [BMI] 34.0-34.9, adult; Z79.01 Long term (current) use of anticoagulants; Z79.82 Long term (current) use of aspirin; Z79.4 Long term (current) use of insulin
CPT/HCPCS: 36415; 36416; 80048; 82553; 84484; 85025; 85610; 85730; 87633; 87798; 87804; 93005; 93306; 94640; 94760; J0696; J1644; J1825; J7050; J7506; J7620

== ENCOUNTER 2018-05-02 01:16 | Observation (INO) | payer MEDICARE ==
[2018-05-02 02:21] LABS: ALT (SGPT) 9 U/L (8-55); AST (SGOT) 9 U/L (5-34); Albumin 4.2 g/dL (3.4-4.8); Alkaline Phosphatase 105 U/L (40-150); Anion Gap 18 mmol/L (10-20); BUN (Urea Nitrogen) 106 mg/dL (8.4-25.7); Bilirubin, Total 0.6 mg/dL (0.2-1.2); Calc. Creatinine Clearance 0 mL/min (70-130); Carbon Dioxide 22 mmol/L (23-31); Chloride 103 mmol/L (98-107); Estimated GFR-MDRD 5; Glucose 153 mg/dL (80-115); Potassium 5.3 mmol/L (3.5-5.1); Protein, Total 7.2 g/dL (5.8-8.1); Sodium 138 mmol/L (136-145)
[2018-05-02 02:44] LABS: CKMB 9.2 ng/mL (0-6.6)
[2018-05-02] MEDS ORDERED: Morphine 4 MG/ML VIAL ONE (03:31)
[2018-05-02] MEDS ORDERED: Ondansetron PF 4 MG/2 ML Vial IVP PRN (05:11)
[2018-05-02] MEDS ORDERED: HYDROcodone/Acetaminophen 5/325 mg Tablet PO PRN (05:11)
[2018-05-02] MEDS ORDERED: Morphine 4 MG/ML VIAL SLOW IVP PRN (05:11)
[2018-05-02] MEDS ORDERED: Dextrose 5% in Water 1,000 ML IV PRN (05:11)
[2018-05-02] MEDS ORDERED: Acetaminophen 325 MG TAB PO PRN (05:11)
[2018-05-02] MEDS ORDERED: HumaLOG 300 UNITS/3 ML VIAL SC PRN (05:11)
[2018-05-02] MEDS ORDERED: Dextrose 50% Abboject 50 ML SYRINGE SLOW IVP PRN (05:11)
[2018-05-02] MEDS ORDERED: Bisacodyl 5 MG TAB PO PRN (05:11)
[2018-05-02 05:16] VITALS: BMI 36.8
--- NOTE | 2018-05-02 06:09 | HP ---
PRIMARY CARE PHYSICIAN: Aurelia Smith DO. ANTIQUE AUTO MUSEUM MAINTENANCE WORKER: Omar Tobias MD. CHIEF COMPLAINT: Right upper quadrant and lower quadrant pain. HISTORY OF PRESENT ILLNESS: Mr. Eaton is a 67-year-old male with past medical history of end-stage renal disease, on dialysis, coronary artery disease, COPD, history of NH, hyperlipidemia, congestive heart failure, ejection fraction of 20 , diabetes type 2, and hypertension, who presented to the emergency department as a transfer from [facility] for right upper quadrant pain and lower pain. The patient reports that his pain started on Wednesday and has been getting worse. The patient reports nausea associated with that problem. The patient was transferred for possible cholecystitis and needing ultrasound in the ER. The patient is on Eliquis. CT abdomen and pelvis with contrast at [place] shows pericholecystic fluid. The patient was noted to have severe pain on admission. PAST MEDICAL HISTORY: End-stage renal disease, coronary artery disease, COPD, history of NH, hyperlipidemia, congestive heart failure, diabetes, and hypertension. PAST SURGICAL HISTORY: Pacemaker placement, hernia repair, coronary artery stent, dialysis access. ALLERGIES: THE PATIENT DOES NOT HAVE ALLERGIES TO ANY KNOWN DRUGS. CURRENT HOME MEDICATIONS: 1. Amiodarone. 2. Atorvastatin. 3. Humalog. 4. Aspirin. 5. Eliquis. 6. Levemir. 7. The patient is on Eliquis for chronic atrial fibrillation of proximal in nature. FAMILY HISTORY: Positive for heart problem. SOCIAL HISTORY: The patient denies any smoking, alcohol, or drug use. REVIEW OF SYSTEMS: A 10-point review of system negative other than mentioned in the HPI. PHYSICAL EXAMINATION: VITAL SIGNS: Blood pressure 144/92, pulse 60, respiration rate 16, temperature 97.6, and O2 saturation 96% on room air. HEENT: Head is atraumatic. GENERAL: The patient appears to be alert, on nasal cannula. MOUTH, THROAT, AND EARS: No exudate, bleeding, or discharge noted. EYES: Extraocular movements intact. NECK: No lymphadenopathy noted. CARDIOVASCULAR: Regular rate and rhythm. No murmurs, rubs, or gallops noted. PULMONARY: Clear bilaterally. No wheezes noted. ABDOMEN: Soft. Bowel sounds positive. The patient reported some discomfort by palpation on the right upper quadrant. Otherwise, no pain reported. No CVA tenderness reported. EXTREMITIES: Lower extremities, no edema noted. NEUROLOGIC: The patient is alert. SKIN: No rashes noted. LABORATORY DATA: Sodium 132, potassium 5.3, chloride 103, carbon dioxide 22, BUN 106, creatinine 10.82, glucose 153, CK-MB 9.2, troponin 0.114. White blood cell count 5.9, hemoglobin 13.8, hematocrit 43.9, platelets 167. The patient's CT abdomen from [facility] is reviewed. There appears to be hydroureter on the right side and some pericystic fluid noted. Ultrasound abd read is pending. ASSESSMENT AND PLAN: 1. Right hydronephrosis/hydroureter. 2. Right upper quadrant pain. 3. Hyperkalemia. 4. Troponin indeterminate. 5. End-stage renal disease, on dialysis. 6. Hypertension. 7. Diabetes. 8. Coronary artery disease. 9. Paroxysmal atrial fibrillation. 10. Chronic systolic congestive heart failure with ejection fraction of 20. PLAN: 1. Suspected hydronephrosis/ureter, Urology consult was placed in the ER. Case was discussed by on-call urologist. The patient to be kept n.p.o., pain control medication added. 2. Trend troponin. 3. Hyperkalemia. Management per security dispatcher. 4. The patient's security dispatcher, Dr. Nelson, consulted for dialysis. 5. Continue sliding scale insulin and home insulin. 6. We will hold home Eliquis at this point for possible surgery. 7. Continue home medications as prescribed. 8. The patient's medical power of trust and estates attorney is . 9. The patient is full code. 10. DVT prophylaxis, SCDs only for now. Job ID: [id number] [facility]
--- NOTE | 2018-05-02 08:28 | ULT ---
PRELIMINARY REPORT/[facility]/EMERGENTY AFTER-HOURS PROCEDURE US Abdomen Limited, Right Upper Quadrant EXAM DATE/TIME: 05/02/2018 2:11 AM CLINICAL HISTORY: 67 years old, male; Pain; Other: Ruq/ RT flank TECHNIQUE: Real-time ultrasound of the abdomen with image documentation. Examination was focused on the right up per quadrant. COMPARISON: No relevant prior studies available. FINDINGS: Liver: Unremarkable liver, no focal abnormality. Gallbladder: No cholelithiasis. Mild gallbladder wall thickening, measuring up to about 4 mm. No defi nite pericholecystic fluid. The gallbladder does not appear abnormally distended at this time. Common bile duct: No significant biliary dilation, common duct measures about 5 mm. Pancreas: Pancreas is mainly obscured by bowel gas at this time. Right kidney: There appears to be mild to moderate right hydronephrosis and dilation of the right jordan al pelvis. An occult ureteral calculus or some other cause of obstruction could be present. Please co rrelate clinically. No definite perinephric fluid. IMPRESSION: 1. Mild gallbladder wall thickening, details above. 2. No cholelithiasis or significant biliary tree dilation. 3. There appears to be mild to moderate right hydronephrosis, see above discussion. 4. Other findings discussed above. Thank you for allowing us to participate in the care of your patient. Dictated and Authenticated by: Brian Dalton MD 05/02/2018 2:52 AM Central Time ([place] & [place]) FINAL REPORT RIGHT UPPER QUADRANT GALLBLADDER ULTRASOUND: IMPRESSION: 1. I agree with the preliminary report provided. There is nonspecific mild gallbladder wall thicken ing, without report of sonographic Garrison sign or pericholecystic fluid. No visualized cholelithiasi s is present. Right-sided hydronephrosis appears similar to the comparison CT dated 05/01/2018. 2. Other findings as above. POS:
--- NOTE | 2018-05-02 14:54 | CON ---
DATE OF CONSULTATION: 05/02/2018 CONSULTING PHYSICIAN: Rosario Su. REASON FOR CONSULTATION: Flank pain with hydronephrosis. HISTORY OF PRESENT ILLNESS: Mr. Eaton is a 67-year-old white male, who presented to the emergency room with a several day history of right flank pain and back pain. He states that he began feeling under the weather with generalized malaise and a feeling of uneasiness. This progressed to abdominal pain, which was primarily focused on the right side. He did not really endorse significant amounts of lower back pain, but the pain progressively got worse to the point where he was not able to tolerate this very well. He denied any nausea, vomiting, fevers, bloody bowel movement, constipation, dizziness, chest pain, or shortness of breath. He just had the abdominal pain. He does have end-stage renal disease and is on dialysis and produces very small amounts of urine, but he states the amount of urine that he did produce was not bloody nor did it have difficulty coming out or any burning with urination. He came to the emergency room in [place], where he was initially worked up with a CT scan for suspected cholecystitis. A CT demonstrated that he did have pericholecystic inflammation compatible with possible cholecystitis, but he also incidentally had a right-sided hydronephrosis without apparent etiology such as a stone. The hydronephrosis was relatively mild. He was then transferred to [facility] for further evaluation and workup. My arrival in discussion with the patient, he states that his pain has significantly improved as he has received approximately 8 mg of morphine in the emergency room. He is feeling better and still has no nausea, vomiting, or significant GI symptoms. He has not urinated, but again he does not urinate much. He normally dialyzes Wednesday, Wednesday, and Wednesday and is due for dialysis today. ALLERGIES: NO KNOWN DRUG ALLERGIES. CURRENT HOME MEDICATIONS: 1. Amiodarone. 2. Atorvastatin. 3. Humalog. 4. Aspirin. 5. Eliquis. 6. Levemir. PAST MEDICAL HISTORY: 1. End-stage renal disease. 2. Coronary artery disease. 3. COPD. 4. History of myocardial infarction. 5. Hyperlipidemia. 6. Congestive heart failure. 7. Diabetes mellitus, type 2. 8. Hypertension. 9. Paroxysmal atrial fibrillation. PAST SURGICAL HISTORY: 1. Pacemaker placement. 2. Hernia repair. 3. Coronary artery stents. 4. Dialysis access. FAMILY HISTORY: Significant for heart disease. SOCIAL HISTORY: The patient denies smoking, alcohol, or illicit drug use. REVIEW OF SYSTEMS: A 12-point review of systems is unremarkable other than what was commented on the HPI, specifically the right-sided abdominal pain as well as some left back pain. Remainder of 12-point review of systems was reviewed and otherwise negative. PHYSICAL EXAMINATION: VITAL SIGNS: Temperature 97.4, pulse 60, respirations 20, blood pressure 156/94 , and saturations 92% on 2 L nasal cannula. GENERAL: No apparent distress, communicating, and alert, appears older than stated age. Obese. HEENT: Normocephalic and atraumatic. Sclerae nonicteric. Pupils symmetric and round. Nasal cannula in place. Trachea midline. CARDIOVASCULAR: Irregularly irregular rhythm. Normal S1 and S2. Symmetric pulses. CHEST: No increased work of breathing. Symmetric expansion. LUNGS: Clear anteriorly. ABDOMEN: Soft and nondistended. There is tenderness to palpation along the entire right abdomen, worse at the right lower quadrant, which is the highest area of tenderness. He does have some right upper quadrant pain as well. There is minimal left-sided pain. He does not have any significant rebound or guarding. Abdomen is not rigid. GENITOURINARY: Penis appears nonfocal and otherwise normal. Testes bilaterally descended. Rectal exam was deferred. EXTREMITIES: No clubbing or cyanosis. 2+ bilateral edema. R upper arm AV fistula with thrill MUSCULOSKELETAL: No obvious joint deformities or joint erythema noted. Full range of motion. Obturator sign is negative. Psoas sign is mildly positive. SKIN: Warm, dry, normal turgor. No rashes or lesions. NEUROLOGIC: Cranial nerves 2 through 12 grossly intact. No focal or sensory motor deficits identified. PSYCHIATRIC: Alert and oriented x3. Appropriate mood and affect. LABORATORY EVALUATION: The full set of labs in the [facility] system, which I have reviewed. Of note, the patient's sodium was 138 with a potassium of 5.3, creatinine is 10.8. Troponin is 0.114, which is slightly lower than his baseline. CBC from yesterday demonstrated white count of 5.9 and hemoglobin of 13.8. IMAGING STUDIES: Abdominal ultrasound from May 02 demonstrates mild gallbladder wall thickening without cholelithiasis or significant biliary tree dilation. There appears to be [id number] right-sided hydronephrosis. CT from May 01 demonstrates pericholecystic inflammation compatible with possible cholecystitis, questionable cystitis, mild right-sided hydronephrosis without obstructing stones, trace ascites. There is a nonobstructing stone within the right kidney, also hemorrhagic cyst on the left kidney. Appendix was visualized and normal. ASSESSMENT AND PLAN: A 67-year-old white male with right abdominal pain, which has a high likelihood of being renal in nature. The patient does have some gallbladder wall thickening, but his right lower quadrant pain is not suggestive of likely gallbladder disease and it does appear that he may have chronic gallbladder wall inflammation. There is no other obvious source of where his pain is coming from and while the hydronephrosis is not severe, this would potentially be the most likely explanation. The patient's pain is significantly better and if his symptoms resolve and dissipate on their own, then nothing further needs to be done as there is no point of protecting renal function as the patient is already on dialysis. However, if his pain persists, we will probably need to take him to the operating room for a stent placement to see if this relieves his pain. If it does, then for certain that his pain is coming from the kidney and we may need to look into further workup as to exactly why he was obstructed on the side and if anything can be done in a conservative fashion to try to keep his ureter patent. Given his chronic elevation in troponins as well as his poor ejection fraction of only 20%, I think the patient should have a cardiac clearance for at least a visit by front counter clerk to see if it is feasible for him to undergo either light sedative such as total intravenous anesthesia or general anesthesia versus the alternate option would be nephrostomy tube; although, it would require the patient to be off Eliquis for 48 hours and aspirin for 7 days before nephrostomy tube could be placed. While this is a more drawn-out longer process, it may be safer if Cardiology feels that he is a very poor candidate to try and attempt short anesthesia. For now, we will just continue to monitor the patient's symptoms and if his pain dissipates, then I think he may be able to be discharged home with followup to ensure that his symptoms do not return. If his pain does not let up and persist, then we probably will have to look at some kind of drainage type procedure. I will continue to follow along and make recommendations. Job ID: [id number] [facility]
--- NOTE | 2018-05-02 15:21 | PDOC.EVN ---
Event Note - Event Note Event Note: Chart reviewed. Pt seen. feels better. Waiting to urologist and distiller. Dialysis M-W-F, for dialysis today.
--- NOTE | 2018-05-03 01:05 | CON ---
DATE OF CONSULTATION: CONSULTING PHYSICIAN: Omar Tobias MD REQUESTING PHYSICIAN: Dr. Moyer. REASON FOR CONSULTATION: End-stage renal disease, need for hemodialysis. IMPRESSION: 1. End-stage renal disease, hemodialysis depended, on Wednesday, Wednesday, and Wednesday. 2. Obesity. PLAN: 1. The patient to be dialyzed today in accordance with his scheduled dialysis with ultrafiltration as tolerated by hemodynamics. 2. Further management to be dependent on the clinical course. HISTORY OF PRESENT ILLNESS: A 67-year-old gentleman with end-stage renal disease, on hemodialysis on Wednesday, Wednesday, and Wednesday, who presented here with right upper and lower quadrant pain, and need for maintenance hemodialysis, necessitated this renal consultation. PAST MEDICAL HISTORY: Significant for COPD, end-stage renal disease, dyslipidemia, congestive heart failure, diabetes, and hypertension. ALLERGIES: NO KNOWN DRUG ALLERGIES. MEDICATIONS: Reviewed and as documented on [facility]. FAMILY HISTORY: Not significantly related to presenting illness. SOCIAL HISTORY: Denies alcohol, tobacco, or illicit drug use. REVIEW OF SYSTEMS: As documented in the body of history. All other systems were reviewed and found not to be significantly related to presenting illness. PHYSICAL EXAMINATION: GENERAL: The patient was found not to be in any obvious distress, noted with the following vital signs. VITAL SIGNS: Afebrile, temperature 97.4, pulse 60, respiratory rate of 18, O2 saturation of 92% on 3 L, and blood pressure of 164/67. HEENT: Unremarkable. CARDIOVASCULAR SYSTEM: First and second heart sounds were heard. RESPIRATORY SYSTEM: Clear to auscultation. DIGESTIVE SYSTEM: Reviewed and obese abdomen. EXTREMITIES: Show minimal peripheral edema. SKIN: No new gross rash. LYMPHATICS: No peripheral lymphadenopathy. SUMMARY: A 67-year-old gentleman with end-stage renal disease, who presented here with abdominal pain, due for dialysis today. Thank you for this consultation. We will follow with you. Job ID: [id number]
[2018-05-03 06:40] LABS: #Eosinphils 0.2 thou/uL (0.0-0.7); #Lymphocytes 0.6 thou/uL (1.20-3.40); #Monocytes 0.8 thou/uL (0.11-0.59); #Neutrophils 4.5 thou/uL (1.40-6.50); %Basophils 0.6 % (0.0-1.0); %Eosinophils 3.1 % (0.0-10.0); %Lymphocytes 9.1 % (21.0-51.0); %Monocytes 13.4 % (0.0-10.0); %Neutrophils 73.8 % (42.0-75.0); Hemoglobin 12.7 g/dL (14.0-18.0); Mean Corpuscular HGB CONC 31.4 g/dL (32.0-36.0); Mean Corpuscular Hemoglobin 31.9 pg (27.0-31.0); Mean Platelet Volume 7.9 fL (7.4-10.4); Platelet Count 153 thou/uL (130-400); RBC Distribution Width 13.4 % (11.5-14.5); Red Blood Cell (RBC) Count 3.98 mill/uL (4.70-6.10); White Blood Cell (WBC) Count 6.1 thou/uL (4.8-10.8)
[2018-05-03 07:01] LABS: Anion Gap 17 mmol/L (10-20); BUN (Urea Nitrogen) 55 mg/dL (8.4-25.7); Calc. Creatinine Clearance 17 mL/min (70-130); Calcium 8.3 mg/dL (7.8-10.44); Carbon Dioxide 26 mmol/L (23-31); Chloride 100 mmol/L (98-107); Estimated GFR-MDRD 7; Glucose 65 mg/dL (80-115); Potassium 4.3 mmol/L (3.5-5.1); Sodium 139 mmol/L (136-145)
--- NOTE | 2018-05-03 09:02 | PRG ---
DATE OF SERVICE: 05/03/2018 SUBJECTIVE: The patient reports that his right lower quadrant and right-sided abdominal pain have completely disappeared. He is no longer having any pain. Denies any nausea, vomiting, or shortness of breath. OBJECTIVE: VITAL SIGNS: Temperature 98, pulse 76, respirations 20, blood pressure 110/61, and saturation 93% on 2 L nasal cannula. GENERAL: No apparent distress. ABDOMEN: Soft, nondistended. Minimal to no tenderness to palpation on the right anymore. No suprapubic tenderness. EXTREMITIES: No clubbing or cyanosis. 1+ edema. LABORATORY DATA: On laboratory evaluation, the full set of labs in the [employer] system, which I have reviewed. Of note, the patient's hemoglobin is 12.7 with a white count of 6.1, and creatinine is 7.46. ASSESSMENT AND PLAN: A 67-year-old white male with right-sided hydronephrosis with right lower quadrant and flank pain, which has spontaneously resolved. The patient already has dialysis and multiple comorbidities and is a poor surgical candidate. Since there is no need for preservation of renal function as the patient is already on dialysis, intervention would only be done for symptomatic reasons and the patient's symptoms have self-resolved. It is possible that he may have had some kind of papillary necrosis. Tissue fragment or clot that did not show up on CT, which was temporally causing some kind of obstruction, which has now passed and cleared. In either case given the lack of symptoms, I do not think any further workup or treatment is really necessary unless the patient's symptoms reoccur. If that does happen, then we would need to consider stenting at that time and potential intervention pending a cardiac clearance. For now, I will sign off as there is nothing further from Urology. From my standpoint, the patient can be discharged when deemed medically stable. If there is any further need for treatment, please re-consult. The patient does not need scheduled followup with me as an outpatient. Job ID: [id number]
--- NOTE | 2018-05-03 10:35 | DIS ---
DATE OF ADMISSION: 05/02/2018 DATE OF DISCHARGE: 05/03/2018 DISCHARGE DIAGNOSES: 1. Right-sided abdominal pain. 2. Right renal or ureteral calculus. 3. Right hydronephrosis. 4. Mild gallbladder wall thickening. 5. End-stage renal disease. 6. Mild hyperkalemia. 7. Diabetes mellitus. 8. History of coronary artery disease. 9. History of chronic obstructive pulmonary disease. 10. History of myocardial infarction. 11. History of congestive heart failure. 12. History of hyperlipidemia. HISTORY OF PRESENT ILLNESS: This patient is a 67-year-old male, who presented to the hospital via the Emergency Department with right-sided abdominal pain. The patient had initial CT of the abdomen and pelvis, which revealed pericolic inflammation as well as his right-sided hydroureteronephrosis. The patient was noted to have pain extending down to the right pelvis that was felt to be inconsistent with the cholecystitis and more consistent with the right hydroureteronephrosis. The patient also noted on the CT scan of a small exophytic mass at the lower pole of the kidney, possibly consistent with a hemorrhagic cyst and some bladder wall thickening that was felt to be more chronic. HOSPITAL COURSE: The patient was admitted to the hospital and received pain control. He was seen in consultation by Dr. Steinberg, who felt the patient's symptoms were most likely related to the hydronephrosis. Given his symptoms, he appropriately stated the patient's renal function was not at risk as he has already had end-stage on dialysis. 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 Given his significant cardiac issues and reduced ejection fraction, it was felt that the patient would be high risk for intervention. Therefore, a conservative course of observation was chosen. Subsequently, the patient's pain completely resolved and he had no tenderness on his exam. Ultimately, the patient is felt to be stable for discharge to home. He will follow up with Dr. Steinberg as an outpatient. PHYSICAL EXAMINATION: VITAL SIGNS: On the day of discharge; temperature 98.0, pulse 76, respirations 20, O2 saturation 93%, and BP 110/61. GENERAL APPEARANCE: Obese, age-appropriate male, who is awake, alert, and oriented, in no distress. HEART: Regular rate and rhythm without murmurs. LUNGS: Clear. ABDOMEN: Soft, nontender, and nondistended. No guarding or rebound. EXTREMITIES: Warm and dry. No significant edema. DISPOSITION: The patient will be discharged to home. MEDICATIONS: He will continue with his usual home medication to include; 1. Humalog. 2. Coreg. 3. Atorvastatin. 4. Aspirin. 5. Eliquis. 6. Amiodarone. 7. Albuterol. 8. Hydralazine. 9. Levemir. DIET: He will continue with a renal diabetic diet. FOLLOWUP: He will follow up with Dr. Steinberg in 1 week. He can return to the Emergency Department should he have any problems prior to that time. Job ID: [id number]
[2018-05-03 10:55] VITALS: BP 129/84; TEMP 98.5
== END 2018-05-03 11:02 | disposition home or self-care (01) ==
LOC: ERS 01:16 → T4-A 05:05
PROVIDERS: ADMIT Family Medicine; ATTEND Family Medicine
DX: R10.11 Right upper quadrant pain (principal); R10.31 Right lower quadrant pain; N13.2 Hydronephrosis with renal and ureteral calculous obstruction; K82.8 Other specified diseases of gallbladder; I13.2 Hypertensive heart and chronic kidney disease with heart failure and with stage 5 chronic kidney disease, or end stage renal disease; E11.22 Type 2 diabetes mellitus with diabetic chronic kidney disease; N18.6 End stage renal disease; I50.22 Chronic systolic (congestive) heart failure; E87.5 Hyperkalemia; I25.10 Atherosclerotic heart disease of native coronary artery without angina pectoris; J44.9 Chronic obstructive pulmonary disease, unspecified; I25.2 Old myocardial infarction; E78.5 Hyperlipidemia, unspecified; I48.2 Chronic atrial fibrillation; I48.0 Paroxysmal atrial fibrillation; E66.9 Obesity, unspecified; Z68.37 Body mass index [BMI] 37.0-37.9, adult; Z79.01 Long term (current) use of anticoagulants; Z79.4 Long term (current) use of insulin; Z79.82 Long term (current) use of aspirin; Z79.899 Other long term (current) drug therapy; Z95.5 Presence of coronary angioplasty implant and graft; Z95.0 Presence of cardiac pacemaker; Z99.2 Dependence on renal dialysis
CPT/HCPCS: 76705; 80048; 80053; 82553; 82962 ×2; 84484; 85025; 96374; 97139; 99285; G0378 ×2; 36415; 36416; 90935; G0257; J2270

== ENCOUNTER 2018-05-13 20:01 | Inpatient (IN) | payer MEDICARE ==
[~2018-05-13 20:01] MED LIST: ISOVUE-370 76%-LOCM 1 ML ONE
[2018-05-13 20:32] LABS: Hemoglobin 14.9 g/dL (14.0-18.0); Mean Corpuscular HGB CONC 30.7 g/dL (32.0-36.0); Mean Corpuscular Hemoglobin 31.2 pg (27.0-31.0); Mean Platelet Volume 7.5 fL (7.4-10.4); Platelet Count 160 thou/uL (130-400); RBC Distribution Width 13.7 % (11.5-14.5); Red Blood Cell (RBC) Count 4.77 mill/uL (4.70-6.10); White Blood Cell (WBC) Count 8.8 thou/uL (4.8-10.8)
[2018-05-13 20:46] LABS: ALT (SGPT) 30 U/L (8-55); AST (SGOT) 35 U/L (5-34); Albumin 4.1 g/dL (3.4-4.8); Alkaline Phosphatase 112 U/L (40-150); Anion Gap 19 mmol/L (10-20); BUN (Urea Nitrogen) 34 mg/dL (8.4-25.7); Bilirubin, Total 0.7 mg/dL (0.2-1.2); Calc. Creatinine Clearance 0 mL/min (70-130); Calcium 8.7 mg/dL (7.8-10.44); Carbon Dioxide 24 mmol/L (23-31); Chloride 100 mmol/L (98-107); Estimated GFR-MDRD 11; Globulin 2.9 g/dL (2.4-3.5); Glucose 112 mg/dL (80-115); Lipase 35 U/L (8-78); Potassium 4.1 mmol/L (3.5-5.1); Sodium 139 mmol/L (136-145)
[2018-05-13] MEDS ORDERED: Piperacillin/Tazobactam 4.5 GM VIAL ONE (20:54)
[2018-05-13 20:55] LABS: Band 5 % (5-11); Lymphocytes 1 % (21-51); MDiff Complete? YES; Macrocytosis SLIGHT = 6-15 cells (100X) (0-5/hpf); Monocytes 2 % (0-10); Neutrophil 92 % (42-75); Platelet Morphology Comment Appears Adequate
[2018-05-13 21:27] LABS: CKMB 5.2 ng/mL (0-6.6)
--- NOTE | 2018-05-13 22:12 | RAD ---
CHEST ONE VIEW 05/13/18 INDICATION: History of cough. COMPARISON: Prior exam dated 03/31/18. FINDINGS: Moderate cardiomegaly is stable. Pulmonary vasculature is within normal limits No definite consolidat ion is grossly evident. Multilead AICD is unchanged. There is elevation of the right hemidiaphragm wh ich is stable. Endograft stent within the region of the right subclavian is similar appearing. No pne umothorax is evident. IMPRESSION: 1. Stable cardiomegaly. 2. Stable endovascular stent in the right subclavian vein. POS: [facility]
[2018-05-13] MEDS ORDERED: methylPREDNISolone Sod Succ/PF 125 MG/2 ML VIAL ONE (22:14)
--- NOTE | 2018-05-13 22:45 | CT ---
CT OF THE CHEST, ABDOMEN AND PELVIS WITH IV CONTRAST 05/13/18 INDICATION: Sepsis with abdominal pain, vomiting, hypoxia; history of end-stage renal disease with subjective fev er, cough, shortness of breath and abdominal pain. COMPARISON: CT of the abdomen and pelvis dated 01/01/11 and 05/01/18. FINDINGS: There is bibasilar atelectasis. There is moderate cardiomegaly. No pneumothorax is evident. There are prominent coronary artery calcifications. There is multilead ACID overlying the right chest wall. Th ere is endovascular stent within the region of the right subclavian vein. No focal hepatic lesion is evident. The pancreas, adrenal glands and spleen appear within normal limits. There is an exophytic cyst invol ving the inferior pole of the left kidney measuring 2.1 cm. Both kidneys are atrophic. No free fluid is evident. Unopacified large and small bowel appear within normal limits. The appendix is not definitely seen; however, there are no secondary signs of appendicitis. No free f luid is evident within the pelvis. Bladder is decompressed. There is scattered degenerative and osteoarthritic change. There is some vacuum disc phenomenon seen at T11-T12 without overt end plate irregularity. Soft tissue mass involving the subcutaneous tissues overlying the right lumbar paraspinal musculature has increased in size from 2011 previously measuring 9.5 cm. Now measuring up to 11.6 cm. IMPRESSION: 1. No definite CT explanation for the patient's fever and sepsis. 2. Bibasilar atelectasis. 3. Subcutaneous mass overlying the right lumbar paraspinal muscles has grown from 2011. Dermatol ogical or surgical consultation may be helpful for further characterization. POS: [facility]
[2018-05-14] MEDS ORDERED: Norepinephrine 8 MG/0.9% NS 250 ML ONE (00:07)
[2018-05-14] MEDS ORDERED: Oseltamivir 75 MG CAP PO SCH (00:45)
[2018-05-14 01:00] LABS: Troponin I 0.158 ng/mL (< 0.028)
[2018-05-14 04:21] LABS: Troponin I 0.177 ng/mL (< 0.028)
[2018-05-14] MEDS ORDERED: Acetaminophen 325 MG TAB PO PRN (09:12)
[2018-05-14 09:30] LABS: Bilirubin Small (Negative); Blood, Urine Small (Negative); Clarity TURBID (Clear); Glucose, Urine (Dipstick) 100 mg/dL (Negative); Leukocyte Small (Negative); Nitrite Negative (Negative); Protein, Urine (Dipstick) > or equal to 300 mg/dL (Neg-Trace); Specific Gravity, Urine 1.028 (1.002-1.036)
[2018-05-14] MEDS ORDERED: Sodium Chloride 0.9% 250 ML IV SCH (09:30)
[2018-05-14] MEDS ORDERED: Dextrose 50% Abboject 50 ML SYRINGE SLOW IVP PRN (09:31)
[2018-05-14] MEDS ORDERED: Dextrose 5% in Water 1,000 ML IV PRN (09:31)
[2018-05-14 09:33] LABS: Pathc Cast-AUWi Flag 1.41 (0-2.49); Squamous Epithelial 0-3 HPF (0-3)
[2018-05-14 09:36] LABS: Yeast-AUWi Flag 157.7 (0-25.0)
[2018-05-14] MEDS ORDERED: Vancomycin HCl 1 GM in Premix Bag 1 BAG IVPB SCH ×2 (09:45→11:30)
[2018-05-14 09:51] LABS: Crystals/HPF 1+ AMORPH URATES HPF (Negative)
[2018-05-14 09:52] LABS: WBC/HPF 21-50 HPF (0-3)
[2018-05-14 09:56] LABS: Bacteria/HPF Rare-Few HPF (None Seen); Yeast-All Forms None Seen HPF (None Seen)
[2018-05-14 09:57] LABS: Hyaline Casts/LPF 0-3 HYALINE CAST LPF (0-3 Hyaline)
--- NOTE | 2018-05-14 10:42 | HP ---
CHIEF COMPLAINT: Weakness. HISTORY OF PRESENT ILLNESS: This patient is a 67-year-old male with a history of cardiomyopathy with an EF of about 20%, and end-stage renal disease on dialysis. The patient was recently admitted here on 05/02/2018 with some right-sided abdominal pain. At that time, the patient had a CT scan, which revealed some evidence of inflammation of the gallbladder as well as a right ureteral stone with some hydronephrosis. Urology was consulted and it was felt that the patient's symptoms were primarily related to his stone and his hydronephrosis. He had consultation by Urology, who felt that the patient was not at significant risk with his kidneys because he has already had end-stage disease and the primary bottom hoop driver was pain relief. The patient did have resolution of his pain and was subsequently discharged to home. The patient reports that he did well subsequent to his discharge. However, on over the last couple of days, he has experienced a couple of episodes of diarrhea with liquid stools both days. He also had some general GI upset indicating that he did not have nausea, but just general discomfort within the abdomen that was fairly diffuse. He reported some episodes of emesis in the Emergency Department, although he did not report that to me. He states he felt generally ill yesterday. He was outside trying to carry some wood and just became profoundly weak and short of breath and therefore, called the ambulance and presented to the Emergency Department. The patient reports he is currently feeling somewhat better, although still has just very mild diffuse abdominal discomfort and what he describes as a "belly ache." REVIEW OF SYSTEMS: The patient did report some possible subjective fevers and generalized weakness. Otherwise, all systems were reviewed and all pertinent positives and negatives were noted in the history of present illness. PAST MEDICAL HISTORY: Notable for end-stage renal disease on hemodialysis followed by Dr. 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 He has a history of coronary artery disease, again with cardiomyopathy, an EF around 20%. He has COPD, history of [place], hyperlipidemia, congestive heart failure, diabetes, and hypertension. PAST SURGICAL HISTORY: Pacemaker, hernia repair, coronary artery stent, and a dialysis access. FAMILY HISTORY: Notable for heart disease. SOCIAL HISTORY: The patient is a nonsmoker, nondrinker, and nondrug user. He is full code. ALLERGIES: THE PATIENT APPARENTLY HAS SOME MILD ALLERGY TO AN ANTIBIOTIC, BUT HE IS NOT AWARE OF SPECIFICALLY WHICH 1. HOME MEDICATIONS: 1. Humalog 5 units subcu t.i.d. 2. Amiodarone b.i.d. 3. Eliquis 5 mg b.i.d. 4. Aspirin 325 daily. 5. Levemir 5 units subcu at bedtime. 6. Atorvastatin 80 mg at bedtime. 7. Carvedilol 6.25 mg daily with meals. 8. Hydralazine 25 mg b.i.d. 9. Albuterol HFA p.r.n. PHYSICAL EXAMINATION: VITAL SIGNS: Temperature 98.4, pulse 73, O2 saturation 94% on 3 L, and BP 97/ 64. GENERAL APPEARANCE: Age-appropriate male, who is obese. No distress. He is awake, alert, oriented, pleasant, and cooperative. HEENT: PERRL. He has no OP lesions. Oral mucosa appears appropriately moist. NECK: Supple and symmetric without lymphadenopathy or JVD. HEART: Regular rate and rhythm with 2/6 murmur at the left upper sternal border. LUNGS: Clear to auscultation bilaterally with good chest wall expansion and air exchange, with fair chest wall expansion and air exchange. ABDOMEN: Nondistended. It is soft. It is minimally diffusely tender with no localization. Bowel sounds are present and normal. EXTREMITIES: With some trace edema, not significant access in the right upper extremity. LABORATORY DATA: White count 8.8, hemoglobin 14.9, platelets 160, 92 neutrophils, 5% bands, and 1% lymphocytes. Sodium 139, potassium 4.1, chloride 100, CO2 is 24, BUN 34, creatinine 5.4, glucose 112, lactic acid 2.0, total bilirubin 0.7, AST is 35, and ALT 30. Troponin 0.10, subsequent 0.16, and subsequent 0.17. Procalcitonin is 3.15. CT chest, abdomen, and pelvis reveals no definite CT explanation of the patient's fever and sepsis. There is bibasilar atelectasis and a subcutaneous mass over the right lumbar paraspinal area, but it has grown slightly since 2010. Chest x-ray, stable cardiomegaly, stable endovascular stent in the right subclavian vein, and right subclavian defibrillator and pacemaker present. IMPRESSION AND PLAN: 1. Septic shock of unclear origin. The patient has had blood pressures dropping as low as the 80s systolic with lowest reported in the ER at 81/56. The patient has received Levophed, vancomycin, Zosyn, Tamiflu, and Solu-Medrol in the Emergency Department. Currently, the patient feels generally okay. His symptoms do appear to be more associated with gastrointestinal track in abdomen. The patient will need further investigation in the meantime. He will have antibiotics dosed around dialysis. We will also give him another 250 bolus of normal saline as the patient had 250 given in the Emergency Department. Apparently, they attempted to pull up to 5 L of fluid off the patient dialysis yesterday, but were unable to, because his pressures were low. The procalcitonin would suggest that this is truly due to a sepsis rather than simple hypovolemia. 2. Gastrointestinal symptoms with nausea, diarrhea, and recent abnormal CT finding suggesting possible inflammation of the gallbladder. We will go ahead and obtain an ultrasound of the gallbladder pending results of that may even need a HIDA scan. 3. Recent ureteral stone with hydronephrosis that appears to be resolved on the current CT scan. We will repeat a urinalysis; however. 4. History of severe cardiomyopathy with defibrillator placement. Continue with his usual home regimen of medications including Coreg and amiodarone. 5. The patient is on anticoagulation with apixaban. The patient does have some history of deep venous thrombosis noted in his prior records, but no history of atrial fibrillation. We will continue that for now. 6. Hyperlipidemia. Continue with Lipitor. 7. Diabetes mellitus. We will continue some sliding scale insulin and Accu- Cheks. 8. End-stage renal disease on dialysis. We will consult Nephrology. Job ID: [id number] [facility]ITALIdalia
--- NOTE | 2018-05-14 10:57 | CON ---
DATE OF CONSULTATION: HISTORY OF PRESENT ILLNESS: Wayne Eaton is a morbidly obese gentleman from [place], [place], 113 kg, presented with fevers, chills, nausea, vomiting, and cough. His temperature in the ER was up to 103. His oxygen saturation was low at 82% and has been coughing up thick yellow sputum and has been vomiting several times without any abdominal pain. CT abdomen was done, which shows no acute pathology. Chest x-ray shows no acute infiltrates, minimal nonspecific bibasilar atelectatic changes. This morning, he is still nauseated, feeling abdominal pains. PAST MEDICAL HISTORY: End-stage renal disease, on dialysis; cardiomyopathy; all his physicians are at the [facility]. He has diabetes, sleep apnea, COPD, previous coronary artery disease, [place], previous hypertension, high cholesterol. PREVIOUS SURGERIES: AICD, hernia repair, multiple cardiac stents access. MEDICATIONS: Home medicines; 1. Amiodarone 200. 2. Atorvastatin 80. 3. Insulin. 4. Aspirin. 5. Eliquis 5 two a day. 6. Levemir 5 units once a day. ALLERGIES: NONE. SOCIAL HISTORY: Retired from heavy equipment. REVIEW OF SYSTEMS: Otherwise, unremarkable. PHYSICAL EXAMINATION: VITAL SIGNS: His saturations 100% on 2 L, pulse 71, blood pressure 109/54, respiratory rate 18. CHEST: Decreased breath sounds. No wheezing. CARDIAC: Normal S1 and S2. No gallops. ABDOMEN: Massive. LABORATORY STUDIES: Creatinine 5.4. White count 8000. Urine is otherwise unremarkable. Blood cultures so far are negative. His influenza titer was negative. IMPRESSION: 1. Febrile illness, rule out sepsis. 2. Morbid obesity, chronic obstructive pulmonary disease, sleep apnea. 3. Renal failure, congestive cardiomyopathy. 4. I do not see any obvious source of his fever and he is still having abdominal issues. 5. His liver profile was minimally abnormal. 6. I agree with empiric broad-spectrum antibiotics, neb treatments, supportive care, home CPAP. 7. We will follow while in the ICU. This is a 45-minute critical time. Job ID: [id number]
[2018-05-14] MEDS ORDERED: Sodium Chloride 0.9% 250 ML 250 ML IVPB SCH (11:15)
[2018-05-14] MEDS ORDERED: Vancomycin HCl 1.5 GM in Sodium Chloride 0.9% 250 ML 300 ML IVPB SCH (11:30)
[2018-05-14] MEDS ORDERED: Piperacillin/Tazobactam 0.75 GM in Sodium Chloride 0.9% 100 ML IVPB PRN (11:30)
[2018-05-14] MEDS ORDERED: Vancomycin HCl 1.25 GM in Sodium Chloride 0.9% 250 ML 250 ML IVPB SCH (11:30)
[2018-05-14] MEDS ORDERED: Sodium Chloride 0.9% 250 ML IVPB SCH (11:30)
[2018-05-14] MEDS ORDERED: HOLD VANCOMYCIN FOR LEVEL >20 FS SCH (11:30)
[2018-05-14] MEDS ORDERED: Vancomycin Sliding Scale 1 EACH FS ONE (11:30)
[2018-05-14] MEDS ORDERED: Vancomycin HCl 750 MG in Sodium Chloride 0.9% 250 ML 250 ML IVPB SCH (11:30)
--- NOTE | 2018-05-14 13:09 | ULT ---
ULTRASOUND ABDOMEN LIMITED: (RIGHT UPPER QUADRANT) DATE: 05/14/2018. HISTORY: Right upper quadrant abdominal pain in a 67-year-old male. FINDINGS: Gallbladder: No evidence of gallstones, sonographic Garrison's sign, or pericholecystic fluid. Wall th ickness at upper limits of normal. Common duct: 5 mm. Liver: Normal size and echogenicity. Pancreas: Very poorly visualized. Right kidney: Small and diffuse hyperechoic. No hydronephrosis. IMPRESSION: 1. No evidence of cholelithiasis or biliary obstruction. 2. Evidence for late stage chronic kidney disease. JOELLE Lui POS: [facility]
[2018-05-14] MEDS: Piperacillin/Tazobactam 2.25 GM in Sodium Chloride 0.9% 100 ML IVPB SCH (13:10)
[2018-05-14] MEDS: HumaLOG 300 UNITS/3 ML VIAL SC PRN ×2 (18:33→21:12)
[2018-05-14 19:53] VITALS: BMI 35.2
--- NOTE | 2018-05-14 22:22 | PRG ---
DATE OF SERVICE: 05/14/2018 REASON FOR CONSULTATION: Need for maintenance hemodialysis. IMPRESSION: 1. End-stage renal disease, on hemodialysis Wednesday, Wednesday, and Wednesday. 2. Nausea, vomiting, abdominal discomfort, as well as hypotension. All these symptoms more or less in keeping with somewhat unlikely got dialyzed below his dry weight. I do not believe that sepsis is responsible for this patient's hypotension. 3. Fever, query cause. PLAN: 1. I do support rehydrating this patient. 2. Patient's dry weights needs to be adjusted as an outpatient upwards. 3. Renally dose all medications. 4. Further management will be dependent on the clinical course. HISTORY OF PRESENT ILLNESS: A 67-year-old gentleman with end-stage renal disease, hemodialysis dependent, who was dialyzed on Wednesday. However, according to the patient, he felt some cramps during dialysis. When he went home, he developed more cramps at home, for which he took pickle juice with little improvement and he later developed fever and more cramps. Patient presented to the ED and was noted to be hypoxic and febrile with a temperature of up to 103. Patient got admitted to ICU with the presumptive diagnosis of sepsis. The need for maintenance hemodialysis necessitated this Renal consultation. PAST MEDICAL HISTORY: Significant for end-stage renal disease, hemodialysis dependent; coronary artery disease; ischemic cardiomyopathy, EF of 20%; dyslipidemia; congestive heart failure; diabetes; and hypertension. FAMILY HISTORY: Significant for heart disease. SOCIAL HISTORY: Denies alcohol, tobacco, or illicit drug use. REVIEW OF SYSTEMS: As documented in the body of history. All other systems were reviewed and found to be significantly related to present illness. PHYSICAL EXAMINATION: GENERAL: Patient was found not to be in any obvious distress. Hemodynamically stable at this point. VITAL SIGNS: A blood pressure 121/63, pulse 67, respiratory rate of 19 to 32, and O2 saturation of 95%. HEENT EXAMINATION: Unremarkable. Moist oral mucosa. No conjunctival injection or icterus. NECK: Supple. CARDIOVASCULAR SYSTEM: First and second heart sounds were heard. RESPIRATORY SYSTEM: Clear to auscultation. DIGESTIVE: Revealed obese abdomen. EXTREMITIES: Showed no peripheral edema. SKIN EXAMINATION: No new gross rash. LYMPHATICS: No peripheral lymphadenopathy. In summary, 67-year-old gentleman with end-stage renal disease, on hemodialysis, who developed a lot of cramps during dialysis and presented here hypotensive and also noted to be febrile. Thank you for this consultation. We will follow with you. Job ID: [id number]
[2018-05-15] MEDS: Piperacillin/Tazobactam 2.25 GM in Sodium Chloride 0.9% 100 ML IVPB SCH (01:00)
[2018-05-15 04:48] LABS: #Lymphocytes 0.4 thou/uL (1.20-3.40); #Monocytes 0.9 thou/uL (0.11-0.59); #Neutrophils 12.9 thou/uL (1.40-6.50); %Eosinophils 0.1 % (0.0-10.0); %Lymphocytes 3.1 % (21.0-51.0); %Monocytes 6.6 % (0.0-10.0); %Neutrophils 90.3 % (42.0-75.0); Hemoglobin 13.2 g/dL (14.0-18.0); Mean Corpuscular HGB CONC 30.4 g/dL (32.0-36.0); Mean Corpuscular Hemoglobin 31.3 pg (27.0-31.0); Mean Platelet Volume 7.8 fL (7.4-10.4); Platelet Count 157 thou/uL (130-400); RBC Distribution Width 13.8 % (11.5-14.5); Red Blood Cell (RBC) Count 4.23 mill/uL (4.70-6.10); White Blood Cell (WBC) Count 14.2 thou/uL (4.8-10.8)
[2018-05-15 05:33] LABS: Anion Gap 20 mmol/L (10-20); BUN (Urea Nitrogen) 70 mg/dL (8.4-25.7); Calc. Creatinine Clearance 12 mL/min (70-130); Calcium 7.8 mg/dL (7.8-10.44); Carbon Dioxide 23 mmol/L (23-31); Chloride 96 mmol/L (98-107); Estimated GFR-MDRD 7; Glucose 106 mg/dL (80-115); Potassium 5.3 mmol/L (3.5-5.1); Sodium 134 mmol/L (136-145)
--- NOTE | 2018-05-15 09:36 | PDOC.PN ---
- Subjective Encounter Start Date: 05/15/18 Encounter Start Time: 09:34 Patient seen and examined. Feeling better. Fever down. No cramps. No N/V. No sob. BP still low. had HD wednesday. No new complaints. No overnight events - Objective Resuscitation Status - Order Detail: 05/14/18 09:12 Resuscitation Status Routine Resuscitation Status: FULL: Full Resuscitation Discussed with: patient MAR Reviewed: Yes Vital Signs & Weight: Vital Signs (12 hours) Temp Pulse Resp 05/15/18 08:00 97.5 F L 05/15/18 04:00 97.7 F 05/15/18 03:14 61 14 05/15/18 00:00 98.4 F 05/14/18 22:40 72 17 Weight Admit Weight 268 lb 4.841 oz Weight 212 lb 8.41 oz Most Recent Monitor Data Heart Rate from ECG 73 NIBP 100/69 NIBP BP-Mean 79 Respiration from ECG 13 SpO2 96 I&O: 05/14/18 05/15/18 05/16/18 05:59 06:59 06:59 Intake Total 460 Output Total 0 Balance 460 Result Diagrams: 05/15/18 04:42 05/15/18 04:42 Additional Labs: Accuchecks 05/14/18 05/14/18 21:09 17:43 POC Glucose 184 H 295 H Phys Exam - Physical Examination Constitutional: NAD HEENT: sclera anicteric Neck: supple Respiratory: no wheezing, no rales Cardiovascular: no significant murmur, no rub Gastrointestinal: soft Musculoskeletal: no edema Neurological: non-focal Psychiatric: normal affect, A&O x 3 Skin: no rash Dx/Plan (1) Febrile illness, acute Code(s): R50.9 - FEVER, UNSPECIFIED Status: Acute (2) CAD (coronary artery disease) Code(s): I25.10 - ATHSCL HEART DISEASE OF [place] CORONARY ARTERY W/O ANG PCTRS Status: Chronic Qualifiers: Coronary Disease-Associated Artery/Lesion type: [place] artery [place] vs. transplanted heart: [place] heart Associated angina: with stable angina Qualified Code(s): I25.118 - Atherosclerotic heart disease of [place] coronary artery with other forms of angina pectoris (3) DM type 2 (diabetes mellitus, type 2) Status: Chronic Qualifiers: Diabetes mellitus snf insulin use: with continuous churn buttermaker use Diabetes mellitus complication status: with kidney complications Diabetes mellitus complication detail: with chronic kidney disease Chronic kidney disease stage : on chronic dialysis Qualified Code(s): E11.22 - Type 2 diabetes mellitus with diabetic chronic kidney disease; N18.6 - End stage renal disease; Z79.4 - long-term (current) use of insulin; Z99.2 - Dependence on renal dialysis (4) ESRD (end stage renal disease) on dialysis Code(s): N18.6 - END STAGE RENAL DISEASE; Z99.2 - DEPENDENCE ON RENAL DIALYSIS Status: Chronic (5) HTN (hypertension) Code(s): I10 - ESSENTIAL (PRIMARY) HYPERTENSION Status: Chronic Qualifiers: Hypertension type: essential hypertension Qualified Code(s): I10 - Essential (primary) hypertension (6) Obesity Code(s): E66.9 - OBESITY, UNSPECIFIED Status: Chronic (7) Sepsis associated hypotension Code(s): A41.9 - SEPSIS, UNSPECIFIED ORGANISM; I95.9 - HYPOTENSION, UNSPECIFIED Status: Acute - Plan cont current plan of care, plan discussed w/ family, continue antibiotics, PT/OT * . continue abx Check labs in am Cultures pending HD per renal
--- NOTE | 2018-05-15 11:06 | PRG ---
DATE OF SERVICE: 05/15/2018 SUBJECTIVE: This morning, he is awake, alert, and responsive. All his cultures are negative. OBJECTIVE: VITAL SIGNS: Pulse 63, blood pressure 124/90, sats are 100%, respirations 16. CHEST: Decreased breath sounds. No wheezing. CARDIAC: Normal S1 and S2. No gallops. ABDOMEN: No masses. LABORATORY DATA: Creatinine is 8, BUN is 70. White count 14,000. IMPRESSION: 1. Renal failure. 2. Sepsis syndrome. 3. Morbid obesity. 4. Chronic obstructive pulmonary disease. 5. Diabetes. 6. Hypertension. PLAN: He will be transferred out of the MICU to a monitored bed. Continue noninvasive ventilation. He is on outpatient sleep study. Job ID: [id number]
[2018-05-15] MEDS: HumaLOG 300 UNITS/3 ML VIAL SC PRN (11:31)
[2018-05-15] MEDS: Cefdinir 300 MG CAP PO SCH (20:14)
--- NOTE | 2018-05-15 22:07 | PRG ---
DATE OF SERVICE: 05/15/2018 SUBJECTIVE: The patient is seen and examined. Noted with the following vital signs. OBJECTIVE: VITAL SIGNS: Afebrile, temperature 97.8, pulse 69, blood pressure 153/95, O2 saturation 98%, and respiratory rate of 15 to 18. HEENT: Unremarkable. CARDIOVASCULAR: First and second heart sounds were heard. RESPIRATORY: Clear to auscultation. DIGESTIVE: Revealed a benign abdomen. EXTREMITIES: No peripheral edema. SKIN: No new gross rash. LYMPHATICS: No peripheral lymphadenopathy. LABORATORY INVESTIGATION: Showed a white count of 14,200. Chemistry showed a potassium of 5.3, BUN of 70 with a creatinine of 8.1. IMPRESSION: 1. End-stage renal disease, hemodialysis dependent. 2. Fever, query cause. 3. Mild hyperkalemia. PLAN: 1. Tomorrow is the patient's schedule dialysis. There is no emergent indication at this point for hemodialysis, therefore, we will keep this patient on schedule for dialysis tomorrow. 2. Renally dose all medications. 3. Further management to be dependent on the clinical course. Job ID: [id number]
[2018-05-16 04:25] LABS: #Eosinphils 0.1 thou/uL (0.0-0.7); #Lymphocytes 0.7 thou/uL (1.20-3.40); #Monocytes 0.9 thou/uL (0.11-0.59); #Neutrophils 8.5 thou/uL (1.40-6.50); %Basophils 0.2 % (0.0-1.0); %Eosinophils 0.8 % (0.0-10.0); %Lymphocytes 6.6 % (21.0-51.0); %Monocytes 8.5 % (0.0-10.0); %Neutrophils 83.8 % (42.0-75.0); Hemoglobin 13.2 g/dL (14.0-18.0); Mean Corpuscular HGB CONC 30.1 g/dL (32.0-36.0); Mean Corpuscular Hemoglobin 30.9 pg (27.0-31.0); Mean Platelet Volume 7.4 fL (7.4-10.4); Platelet Count 145 thou/uL (130-400); RBC Distribution Width 13.8 % (11.5-14.5); Red Blood Cell (RBC) Count 4.27 mill/uL (4.70-6.10); White Blood Cell (WBC) Count 10.1 thou/uL (4.8-10.8)
[2018-05-16 04:45] LABS: Anion Gap 23 mmol/L (10-20); BUN (Urea Nitrogen) 83 mg/dL (8.4-25.7); Calc. Creatinine Clearance 10 mL/min (70-130); Calcium 7.7 mg/dL (7.8-10.44); Carbon Dioxide 22 mmol/L (23-31); Chloride 94 mmol/L (98-107); Estimated GFR-MDRD 5; Glucose 155 mg/dL (80-115); Potassium 5.6 mmol/L (3.5-5.1); Sodium 133 mmol/L (136-145)
[2018-05-16] MEDS: Cefdinir 300 MG CAP PO SCH ×2 (09:20→20:18)
--- NOTE | 2018-05-16 10:26 | PRG ---
DATE OF SERVICE: 05/16/2018 SUBJECTIVE: This morning, he is awake, responsive, being dialyzed. OBJECTIVE: VITAL SIGNS: Blood pressure 144/80, temperature 98, saturations 90% and respirations 18. GENERAL: He said he is feeling better. CHEST: Decreased breath sounds without any wheezing. CARDIAC: Normal S1, S2. No gallops. ABDOMEN: No masses. LABORATORY DATA: Creatinine 9.8, BUN is 83. White count [id number]. IMPRESSION: 1. Hypotension, resolved. 2. Febrile illness. 3. Carotid disease. 4. chronic obstructive pulmonary disease. 5. Sleep apnea. 6. End-stage renal disease. He is being dialyzed today. If cultures are negative, I am going to discontinue the antibiotics IV. Continue otherwise supportive care, PT. Home in the next 24-48 hours if okay with primary care physician. Job ID: [id number]
--- NOTE | 2018-05-16 11:21 | PDOC.PN ---
- Subjective Encounter Start Date: 05/16/18 Encounter Start Time: 09:00 Subjective: PATIENT SEEN AND EVALUATED C/O SOB C/O SOB AND COUGH - Objective Resuscitation Status - Order Detail: 05/14/18 09:12 Resuscitation Status Routine Resuscitation Status: FULL: Full Resuscitation Discussed with: patient Vital Signs & Weight: Vital Signs (12 hours) Temp Pulse Resp Pulse Ox 05/16/18 07:46 98 05/16/18 07:10 98.6 F 05/16/18 03:40 97.5 F L 05/16/18 03:08 60 20 96 05/16/18 00:00 99.0 F Weight Admit Weight 268 lb 4.841 oz Weight 275 lb 3 oz Most Recent Monitor Data Heart Rate from ECG 70 NIBP 144/81 NIBP BP-Mean 102 Respiration from ECG 12 SpO2 95 I&O: 05/15/18 05/16/18 05/17/18 06:59 06:59 06:59 Intake Total 1110 Output Total 140 Balance 970 Result Diagrams: 05/16/18 04:20 05/16/18 04:20 Additional Labs: Accuchecks 05/15/18 05/15/18 05/15/18 20:20 16:12 10:15 POC Glucose 180 H 147 H 196 H 05/15/18 05:20 POC Glucose 112 H Radiology Reviewed by me: No Phys Exam - Physical Examination HEENT: moist MMs Neck: no JVD RALES Cardiovascular: no significant murmur Gastrointestinal: soft, non-tender, no distention Musculoskeletal: pulses present Neurological: non-focal, normal sensation Psychiatric: normal affect Skin: no rash Dx/Plan (1) Febrile illness, acute Code(s): R50.9 - FEVER, UNSPECIFIED Status: Acute (2) Sepsis associated hypotension Code(s): A41.9 - SEPSIS, UNSPECIFIED ORGANISM; I95.9 - HYPOTENSION, UNSPECIFIED Status: Acute (3) Acute exacerbation of CHF (congestive heart failure) Code(s): I50.9 - HEART FAILURE, UNSPECIFIED Status: Acute Qualifiers: Heart failure type: combined systolic and diastolic Qualified Code(s): I50.43 - Acute on chronic combined systolic (congestive) and diastolic ( congestive) heart failure Comment: ef of 20% (4) COPD exacerbation Code(s): J44.1 - CHRONIC OBSTRUCTIVE PULMONARY DISEASE W (ACUTE) EXACERBATION Status: Acute (5) Demand ischemia of myocardium Code(s): I24.8 - OTHER FORMS OF ACUTE ISCHEMIC HEART DISEASE Status: Acute (6) Volume overload Code(s): E87.70 - FLUID OVERLOAD, UNSPECIFIED Status: Acute (7) Afib Code(s): I48.91 - UNSPECIFIED ATRIAL FIBRILLATION Status: Chronic Qualifiers: Atrial fibrillation type: paroxysmal Qualified Code(s): I48.0 - Paroxysmal atrial fibrillation (8) CAD (coronary artery disease) Code(s): I25.10 - ATHSCL HEART DISEASE OF [place] CORONARY ARTERY W/O ANG PCTRS Status: Chronic Qualifiers: Coronary Disease-Associated Artery/Lesion type: [place] artery [place] vs. transplanted heart: [place] heart Associated angina: with stable angina Qualified Code(s): I25.118 - Atherosclerotic heart disease of [place] coronary artery with other forms of angina pectoris - Plan cont current plan of care, continue antibiotics, PT/OT * . - Discharge Day Encounter end time: 11:24
[2018-05-16] MEDS ORDERED: Loperamide HCl 2 MG CAP PO PRN (17:46)
--- NOTE | 2018-05-16 19:21 | PRG ---
DATE OF SERVICE: 05/16/2018 SUBJECTIVE: The patient was seen and examined, noted with the following. OBJECTIVE: VITAL SIGNS: Afebrile, blood pressure 169/82, pulse 78, and respiratory rate of 18. HEENT: Unremarkable. Moist oral mucosa. Neck was supple. No conjunctival injection or icterus. CARDIOVASCULAR: First and second heart sounds were heard. RESPIRATORY SYSTEM: Clear to auscultation. DIGESTIVE: Revealed a benign abdomen with positive bowel sounds. EXTREMITIES: No peripheral edema. SKIN: No new gross rash. LYMPHATICS: No peripheral lymphadenopathy. IMPRESSION: 1. End-stage renal disease, on hemodialysis, due for dialysis today. 2. Obesity. 3. Query sepsis. PLAN: The patient to be dialyzed today in accordance with the schedule, and afterwards, the patient is due for discharge from the Renal standpoint, the patient is good for discharge to further management to be dependent on the clinical course. We will strongly recommend outpatient dialysis unit we will advise the outpatient dialysis unit to stop as much fluid as been doing to find this patient and adjust the dry weight of this patient off number three further management will be dependent on the clinical course. Job ID: [id number]
[2018-05-17] MEDS ORDERED: Carvedilol 6.25 MG TAB PO SCH (09:00)
[2018-05-17] MEDS ORDERED: Amiodarone 200 MG TAB PO SCH (09:00)
[2018-05-17] MEDS: Cefdinir 300 MG CAP PO SCH (09:55)
--- NOTE | 2018-05-17 10:24 | PRG ---
DATE OF SERVICE: 05/17/2018 SUBJECTIVE: A 67-year-old, morbidly obese gentleman. This morning, he is doing well. OBJECTIVE: VITAL SIGNS: Temperature 97, pulse is 85 this morning, stats are , respiratory rate 18, and blood pressure 180/65. CHEST: Decreased breath sounds. No wheezing. CARDIAC: Normal S1 and S2. No gallop. ABDOMEN: No masses. IMPRESSION: Morbid obesity, sleep apnea, chronic renal failure. PLAN: Continue antibiotics. Continue dialysis. Continue present cardiac medication. DISPOSITION: Home as per primary care physician, needs an outpatient sleep study. We will follow. Job ID: [id number]
[2018-05-17 11:07] VITALS: TEMP 98.5
--- NOTE | 2018-05-17 12:06 | PQF ---
KATELYNNHERNANDEZ CANAS [id number] CLINICAL DOCUMENTATION IMPROVEMENT CLARIFICATION FORM: ICD-10 Updated PLEASE DO AN ADDENDUM TO THE PROGRESS NOTE WITH ANY DOCUMENTATION UPDATES OR ADDITIONS AND CARRY THROUGH TO DC SUMMARY. THANK YOU. DATE: 05/17 ATTN: DR. Ruby BRANDT Please exercise your independent, professional judgment in responding to the clarification form. Clinical indicators are provided on the bottom of this form for your review. Please check appropriate box(s): [ ] Acute Respiratory Failure:[ ] with Hypoxia[ ] with Hypercapnia [ Y ] Acute On Chronic Respiratory Failure: [ ] with Hypoxia [ ] with Hypercapnia [ ] Acute Respiratory Failure due to: (etiology) [ ] Hypoxia [ ] Other diagnosis [ ] Unable to determine In addition, please specify: Present on Admission (POA): [ Y ] Yes [ ] No [ ] Unable to determine For continuity of documentation, please document condition throughout progress notes and discharge summary. Thank You. CLINICAL INDICATORS - SIGNS / SYMPTOMS / LABS ER PRESENTATION 05/14: ROOM AIR SAT 81% > PLACED ON NRB 97%, T: 103.0 RR: 26 SEPSIS ALERT ER PHYSICIAN DOCUMENTATION: PT PRESENTED W/ DIFFUSE WHEEZING & HYPOXIA W/ MODERATE RESPIRATORY DISTRESS ER PHYSICIAN DIAGNOSES: SEVERE SEPSIS W/ SEPTIC SHOCK, RESPIRATORY DISTRESS W / HYPOXIA PT TRANSFERRED TO CCU ON NON-REBREATHER RISKS: SEVERE SEPSIS W/SEPTIC SHOCK HX OF COPD (WEARS 02 AT NIGHT, NOT DURING THE DAY) ESRD ON DIALYSIS TREATMENT: CCU MONITORING SUPPLEMENTAL OXYGEN VIA NON-REBREATHER (WEANED TO 3L NC IN CCU, 05/14) PULMONOLOGY CONSULT THANK YOU! Ashley (This form is maintained as a part of the permanent medical record) 2015 [employer]. All Rights Reserved Ashley Dwyer RN, BSN [email or web address] Office: [phone] [facility]
--- NOTE | 2018-05-18 06:13 | DIS ---
DATE OF ADMISSION: 05/14/2018 DATE OF DISCHARGE: 05/17/2018 DISCHARGING PHYSICIAN: Dr. Alex Copeland. PRIMARY CARE PHYSICIAN: Aurelia Smith DO CONSULTATIONS ON THE CASE: 1. Dr. Nelson, Nephrology. 2. Dr. Fernandez Bazan, Pulmonary Critical Care. ADMISSION DIAGNOSES: 1. Septic shock of unclear origin. The patient started on broad-spectrum antibiotics. 2. Intractable nausea and vomiting. 3. Severe cardiomyopathy. 4. The patient currently on apixaban for history of deep venous thrombosis as well as cardiomyopathy. 5. Hyperlipidemia. 6. Diabetes mellitus, type 2. 7. End-stage renal disease, on hemodialysis. DISCHARGING DIAGNOSES: 1. Status post acute febrile illness, resolved. 2. Sepsis-associated hypotension, resolved. 3. Health-associated pneumonia, treated, present on admission. 4. Severe systolic congestive heart failure exacerbation with an ejection fraction of 20%. 5. Acute hypoxemic chronic obstructive pulmonary disease exacerbation, resolved. 6. Demand ischemia, resolved. 7. Volume overload. 8. End-stage renal disease, on hemodialysis on Mondays, Wednesdays, and Fridays. 9. Chronic atrial fibrillation, the patient on Eliquis for the same. 10. Coronary artery disease. PROCEDURE: Procedure at [facility]; status post hemodialysis secondary to history of end-stage renal disease on Mondays, Wednesdays, and Fridays. HOSPITAL COURSE: This is a very pleasant 67-year-old male gentleman admitted to the hospitalist services with complaints of severe shortness of breath associated with fever, chills, and rigors, was evaluated for sepsis possibly secondary to patient's pneumonia and was started on broad-spectrum antibiotics including Tamiflu. Over the course of patient's hospitalization, the patient remained afebrile, subsequently underwent hemodialysis per Nephrology recommendations as scheduled on Mondays, Wednesdays, and Fridays. The patient tolerated this treatment very well in the intensive care unit, was subsequently downgraded to [facility] and during this course was evaluated by Pulmonary Critical Care. Eventual transition of the patient's IV antibiotics was made to oral Omnicef. The patient was continued on hemodialysis, during this course was also evaluated for his pacemaker. The patient also was continued on his anticoagulation with a history of atrial fibrillation and DVT as well as taking fluid overload by hemodialysis for history of severe cardiomyopathy, ejection fraction of 20%. The patient after clearance from both Nephrology and Pulmonary Services was advised for discharge planning with home health care and outpatient followup with hemodialysis. DISPOSITION: Discharge home with home health care. PHYSICAL EXAMINATION: CVS: S1 and S2, irregular. CHEST: Bilateral air entry present. ABDOMEN: Soft, nontender. EXTREMITIES: No cyanosis. 1+ edema noted. ALLERGIES: NO KNOWN DRUG ALLERGIES, BUT THE PATIENT DOES SAY HE HAS A HISTORY OF ANTIBIOTIC ALLERGY BUT UNFORTUNATELY DOES NOT HAVE A NAME FOR IT. DIET: Renal diet with 1800-kilocalorie ADA diet. IMMUNIZATION HISTORY: Up-to-date. MEDICATIONS AT HOME: 1. Amiodarone 200 mg b.i.d. 2. Omnicef 300 mg twice a day for 7 days. 3. Tylenol 325 mg q.4 p.r.n. 4. Albuterol HFA two puffs q.6 inhalation p.r.n. for shortness of breath. 5. Eliquis 5 mg b.i.d. 6. Atorvastatin 80 mg daily. 7. Coreg 6.25 mg b.i.d. 8. Hydralazine 25 mg b.i.d. 9. Levemir 5 units at bedtime. DISCHARGE PLAN: The patient has been advised and educated about the diagnosis, treatment, and followup. The patient has been advised about antibiotic therapy for 7 days. Advised about scheduled hemodialysis. Followup care with his primary Cardiology, Nephrology, and Pulmonary Services. The patient need to have sleep study evaluation for obstructive sleep apnea as an outpatient with Pulmonary Services. Dr. Bazan has scheduled an outpatient evaluation. The patient is up-to-date on his immunization status. DME NEEDS: None at this point of time. ADVANCED DIRECTIVES: Full code. TIME SPENT: The whole discharge process including discharge coordination took me more than 35 minutes. Job ID: [id number]
== END 2018-05-17 15:10 | disposition home or self-care (01) | DRG 871 ==
LOC: ERS 20:01 → CCU 05-14 01:08 → IMCU/EMU 05-15 18:38
PROVIDERS: ADMIT Family Medicine; ATTEND Family Medicine
PROC: 5A1D70Z Performance of Urinary Filtration, Intermittent, Less than 6 Hours Per Day (ICD-10-PCS; principal; 2018-05-16)
DX: A41.9 Sepsis, unspecified organism (principal); I50.43 Acute on chronic combined systolic (congestive) and diastolic (congestive) heart failure; N18.6 End stage renal disease; J96.20 Acute and chronic respiratory failure, unspecified whether with hypoxia or hypercapnia; J44.1 Chronic obstructive pulmonary disease with (acute) exacerbation; I24.8 Other forms of acute ischemic heart disease; I13.2 Hypertensive heart and chronic kidney disease with heart failure and with stage 5 chronic kidney disease, or end stage renal disease; I42.9 Cardiomyopathy, unspecified; I48.91 Unspecified atrial fibrillation; I25.10 Atherosclerotic heart disease of native coronary artery without angina pectoris; G47.30 Sleep apnea, unspecified; E87.5 Hyperkalemia; E11.22 Type 2 diabetes mellitus with diabetic chronic kidney disease; E66.9 Obesity, unspecified; E78.5 Hyperlipidemia, unspecified; I25.2 Old myocardial infarction; Z99.2 Dependence on renal dialysis; Z68.34 Body mass index [BMI] 34.0-34.9, adult; Z98.61 Coronary angioplasty status; Z88.1 Allergy status to other antibiotic agents; Z79.82 Long term (current) use of aspirin; Z79.01 Long term (current) use of anticoagulants
CPT/HCPCS: 36415; 36416; 36556; 71045; 71260; 74177; 76705; 80048; 80053; 81003; 81015; 82553; 83605; 83690; 84145; 84484; 85025; 87040; 87804; 93005; 93010; 94640; 94660; 96365; 96366; 96368; 96375; 99292; J2543; J2930; J3370; J7050; J7620; Q9966

== ENCOUNTER 2018-06-21 20:30 | Outpatient (CLI) | payer MEDICARE | END 2018-06-21 20:31 | disposition home or self-care (01) | LOC: SLEEPLAB 20:30 | PROVIDERS: ATTEND Family Medicine | DX: G47.33 Obstructive sleep apnea (adult) (pediatric) (principal); I12.0 Hypertensive chronic kidney disease with stage 5 chronic kidney disease or end stage renal disease; N18.6 End stage renal disease; E11.22 Type 2 diabetes mellitus with diabetic chronic kidney disease; I25.10 Atherosclerotic heart disease of native coronary artery without angina pectoris; R09.02 Hypoxemia | CPT/HCPCS: 95811 ==

== ENCOUNTER 2018-10-08 11:29 | Emergency (ER) | payer MEDICARE ==
--- NOTE | 2018-10-08 12:29 | CT ---
EXAM: CT ABDOMEN AND PELVIS HISTORY: Pain. Constipation. Flatulence. COMPARISON: 11/04/2018 at 9:53 AM Procedure: Multiple contiguous axial images were obtained and a CT of the abdomen and pelvis with IV contrast. C oronal reformats were performed. FINDINGS: Lower Chest: within normal limits. Vessels: Normal caliber. Heart: Cardiomegaly. No significant pericardial fluid. Abdomen: Portal vein:Patent Gallbladder: No calcified gallstones. Normal caliber wall. Liver: within normal limits. Pancreas: Mild atrophy Spleen: within normal limits. Adrenals: within normal limits. Kidneys: Stable and essentially symmetric enhancement with appear to the earlier study performed toda y. Stable hypodensities in the left kidney. Stable exophytic, likely complex left renal cyst. Redemonstration of calcifications in the right renal pelvis. Bilaterally no obstructive uropathy Peritoneum: No ascites or free air, no fluid collection. Bowel: Normal caliber. Mesentery and Retroperitoneum: No enlarged mesenteric or retroperitoneal lymph nodes. Abdominal Wall: within normal limits. Pelvis: Reproductive Organs: No pelvic masses. Pelvis: within normal limits. Bladder: within normal limits. Bones: within normal limits. IMPRESSION: No appreciable change since the examination performed earlier today. No acute abnormality in the abdo men or pelvis.
[2018-10-08 13:42] LABS: CKMB 2.9 ng/mL (0-6.6)
[2018-10-08] MEDS ORDERED: ISOVUE-370 76%-LOCM 1 ML ONE (13:49)
== END 2018-10-08 15:09 | disposition home or self-care (01) ==
LOC: ERS 11:29
DX: R10.9 Unspecified abdominal pain (principal); R10.817 Generalized abdominal tenderness; I25.2 Old myocardial infarction; E11.9 Type 2 diabetes mellitus without complications; I11.0 Hypertensive heart disease with heart failure; I50.9 Heart failure, unspecified; J44.9 Chronic obstructive pulmonary disease, unspecified; E78.00 Pure hypercholesterolemia, unspecified; Z79.4 Long term (current) use of insulin; Z79.899 Other long term (current) drug therapy; Z79.82 Long term (current) use of aspirin
CPT/HCPCS: 36415; 74177; 82553; 93005; Q9966

== ENCOUNTER 2019-10-05 06:28 | Outpatient (CLI) | payer MEDICARE, OTHER ==
--- NOTE | 2019-10-05 11:42 | RAD ---
XR Chest Pa Lat STANDARD HISTORY: Preoperative evaluation COMPARISON: 10/08/2018 FINDINGS: The heart size is enlarged. Right-sided vascular stent and pacemaker device are again seen. . The lungs are well expanded without focal areas of consolidation, pneumothorax or pleural effusions. IMPRESSION: No radiographic evidence of acute cardiopulmonary process.
[2019-10-05 14:08] LABS: Hemoglobin 13.8 g/dL (14.0-18.0); Mean Corpuscular HGB CONC 32.1 g/dL (32.0-36.0); Mean Corpuscular Volume 99.7 fL (78.0-98.0); Mean Platelet Volume 7.5 fL (7.4-10.4); Platelet Count 221 thou/uL (130-400); RBC Distribution Width 13.6 % (11.5-14.5); Red Blood Cell (RBC) Count 4.31 mill/uL (4.70-6.10); White Blood Cell (WBC) Count 6.9 thou/uL (4.8-10.8)
[2019-10-05 14:16] LABS: Anion Gap 17 mmol/L (10-20); BUN (Urea Nitrogen) 45 mg/dL (8.4-25.7); Calc. Creatinine Clearance 0 mL/min (70-130); Carbon Dioxide 27 mmol/L (23-31); Chloride 100 mmol/L (98-107); Estimated GFR-MDRD 8; Glucose 118 mg/dL (80-115); Potassium 4.7 mmol/L (3.5-5.1); Sodium 139 mmol/L (136-145)
[2019-10-05 14:22] LABS: PTT 24.7 sec (22.9-36.1); Prothrombin Time 13.1 sec (12.0-14.7)
[2019-10-05 14:28] LABS: Band 4 % (5-11); Eosinophils 5 % (0-10); Lymphocytes 17 % (21-51); Metamyelocyte 1 % (0-0); Monocytes 12 % (0-10); Reactive Lymphocytes 1 % (0-10)
[2019-10-05 14:29] LABS: Platelet Morphology Comment Appears Adequate
[2019-10-05 14:30] LABS: Neutrophil 60 % (42-75)
[2019-10-06 12:08] LABS: SARS-CoV-2 MS2 Positive; SARS-CoV-2 N Gene Negative; SARS-CoV-2 S Gene Negative; SARS-CoV-2 by NAA Not Detected (NotDetected); SARS-CoV-2 orf1ab Negative
== END 2019-10-05 06:29 | disposition home or self-care (01) ==
LOC: LABBT 06:28 → SCSRAD 06:29
PROVIDERS: ATTEND Specialist
DX: Z01.818 Encounter for other preprocedural examination (principal); Z11.59 Encounter for screening for other viral diseases; N18.6 End stage renal disease
CPT/HCPCS: 71046; 80048; 85025; 85610; 85730; 87635; 93005; 93010; U0003

== ENCOUNTER 2019-10-10 11:40 | Day surgery (SDC) | payer MEDICARE ==
[2019-10-03 10:24] VITALS: BMI 29.0
--- NOTE | 2019-10-10 06:23 | HP ---
HISTORY OF PRESENT ILLNESS: Wayne Eaton is a 69-year-old male patient, who presents in need of a revision of his right AV fistula. In 2012 or 2013, the patient had a fistula, that works well in his upper arm. He has developed some aneurysmal dilatations. Plan is to excise these aneurysms, they are enlarging. He has a left subclavian pacemaker defibrillator. He dialyzes at [facility] on Wednesday, Wednesday, and Wednesday. He is on Coumadin. We will hold his Coumadin for 5 days prior. We will check PT/INR on the morning of surgery. He is followed by Dr. Smith and Dr. Crowe of Nephrology at [facility] right subclavian vein stent followed by Dr. Nelson. He had recent angiogram, revealing persistent thrombus, more distal aneurysmal dilatation of the fistula above the antecubital fossa near the AC fossa. Plan is to repair these, so he can access the more proximal fistula without having to have a catheter. ALLERGIES: NONE. HABITS: Tobacco, none. Alcohol, none. MEDICATIONS: 1. Amiodarone. 2. Aspirin. 3. Carvedilol. 4. Coumadin. 5. Insulin. PAST MEDICAL HISTORY: 1. Diabetes mellitus. 2. Hypertension. 3. End-stage renal disease, on maintenance dialysis. PAST SURGICAL HISTORY: 1. Hernia repair. 2. Defibrillator and pacemaker, left subclavian. 3. Right arm fistula. 4. Right subclavian vein stents. 5. Catheter exchanged in 2013, currently without catheter. REVIEW OF SYSTEMS: Ten-point noncontributory. PHYSICAL EXAMINATION: VITAL SIGNS: Blood pressure 119/68, heart rate 60, temperature 98.2 degrees, weight 264 pounds, height 73 inches, and 34 BMI. HEAD, EARS, EYES, NOSE, AND THROAT: Unremarkable. LUNGS: Clear to auscultation. CARDIAC: Regular rate and rhythm without murmur or gallop. ABDOMEN: Soft and nontender. Defibrillator in left chest. EXTREMITIES: Right arm fistula aneurysmal dilatation, distal fistula above the antecubital fossa, another one at the antecubital fossa. ASSESSMENT AND PLAN: Dysfunctional end-stage renal disease dialysis fistula. Plan revision as indicated above. He understands risks and benefits. He will hold his Coumadin 5 days prior. He can resume his Coumadin the night of surgery. Job ID: [id number]
[~2019-10-10 11:40] MED LIST changes: -ISOVUE-370 76%-LOCM 1 ML ONE; +Lidocaine 1% PF 5 ML VIAL ONE; +PHENYLEPHRINE-NS 100 MCG/ML 10 ML SYRINGE ONE; +PROPOFOL 200 MG/20 ML VIAL ONE; +Rocuronium Bromide 10 MG/ML (10ML VIAL) ONE
[2019-10-10] MEDS ORDERED: Bupivacaine PF 0.5% 30 ML VIAL ONE (15:10)
[2019-10-10] MEDS ORDERED: Lidocaine 1% w/Epinephrine 1:100K 20 ML VIAL ONE (15:10)
[2019-10-10] MEDS ORDERED: Heparin 5,000 UNITS/ML VIAL ONE (15:10)
[2019-10-10] MEDS ORDERED: Fentanyl 100 MCG/2 ML VIAL ONE (15:24)
[2019-10-10] MEDS ORDERED: Ketamine 50 MG/ML (10ML VIAL) ONE (15:42)
[2019-10-10] MEDS ORDERED: Midazolam HCl 2 mg/2 ml Vial ONE (15:44)
[2019-10-10] MEDS ORDERED: Protamine Sulfate 250 MG/25 ML VIAL ONE (16:50)
[2019-10-10] MEDS ORDERED: SUGAMMADEX SODIUM 200 MG/2 ML VIAL ONE (17:07)
--- NOTE | 2019-10-10 18:39 | OP ---
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 ANESTHESIA: General, local 0.5% Marcaine 30 mL mixed with 1% Xylocaine with epinephrine 20 mL. DESCRIPTION OF PROCEDURE: The patient was taken to the operating room, where under general anesthesia, right upper extremity was prepared with ChloraPrep and draped in routine fashion. Local anesthetic was infiltrated in the skin and subcutaneous tissue about the operative site. The patient had AV fistula originating from the proximal radial artery. There was an aneurysmal dilatation in the antecubital fossa, which has never been accessed. There was a more prominent aneurysm and the dissection of the fistula above the antecubital fossa, this was where the thrombus could not clear. Ellipse of skin excised and aneurysm dissected free. Large collateral vein was divided between 4-0 silk ties and clips. Aneurysm dissected free circumferentially proximally and distally. The patient was given 6000 units of heparin intravenously. After adequate circulation time, the fistula was clamped proximally and distally with atraumatic vascular clamps. An ellipse of aneurysm wall was excised and thrombus evacuated and then the aneurysm wall plicated close to-and-fro sutures of 4-0 Prolene. Good hemostasis obtained with cautery and clips and ties. Subcutaneous tissue was approximated with 3-0 Monocryl, skin with subdermal Monocryl, and [place] glue applied. Job ID: [id number]
== END 2019-10-10 19:20 | disposition home or self-care (01) ==
LOC: SDC 11:40
PROVIDERS: ATTEND Specialist
PROC: 03CB0ZZ Extirpation of Matter from Right Radial Artery, Open Approach (ICD-10-PCS; principal; 2019-10-10)
DX: T82.868A Thrombosis due to vascular prosthetic devices, implants and grafts, initial encounter (principal); T82.510A Breakdown (mechanical) of surgically created arteriovenous fistula, initial encounter; I12.0 Hypertensive chronic kidney disease with stage 5 chronic kidney disease or end stage renal disease; E11.22 Type 2 diabetes mellitus with diabetic chronic kidney disease; N18.6 End stage renal disease; I42.9 Cardiomyopathy, unspecified; I25.10 Atherosclerotic heart disease of native coronary artery without angina pectoris; E78.5 Hyperlipidemia, unspecified; I25.2 Old myocardial infarction; Z79.01 Long term (current) use of anticoagulants; Z79.4 Long term (current) use of insulin; Z79.82 Long term (current) use of aspirin; Z79.899 Other long term (current) drug therapy; Z88.1 Allergy status to other antibiotic agents; Z99.2 Dependence on renal dialysis; Z95.5 Presence of coronary angioplasty implant and graft; Z95.810 Presence of automatic (implantable) cardiac defibrillator
CPT/HCPCS: 36416; J0690; J1644; J2250; J2704; J2720; J3010; S0020

== ENCOUNTER 2019-12-23 11:18 | Observation (INO) | payer MEDICARE, OTHER ==
--- NOTE | 2019-12-23 14:13 | PDOC.HHP ---
Hospitalist HPI - History of Present Illness Chest pain History of Present Illness: Mr. Eaton is a 61-year-old male with a past medical history of ischemic cardiomyopathy with most recent EF 15 to 20% (Mar 2018), type 2 diabetes mellitus, hypertension, end-stage renal disease on MWF dialysis, COPD not on home O2. Atrial fibrillation on unsure anticoagulation and amiodarone, with multiple past MIs and cardiac stents who presents as a transfer from [facility] for chest pain. Patient reports that since 10 PM last night he has had constricting band like pain and pressure over his chest. He reports that this episode will last for a few minutes then resolved. Patient reports that these episodes happen at rest but also when he is exerting himself. Patient does note that the pain feels worse when lying on his back and does feel better when leaning forward. During these episodes he reports that he feels as though he cannot catch his breath and feels lightheaded. Currently he denies any chest pain, shortness of breath, palpitations, or lightheadedness. Patient follows with panelboard assembler at [facility] and [place], Dr. Francisco, In the ED initial vital signs 149/88, 60, 13, 95% on room air. Initial troponins 0.075, 0.079. EKG showed paced rhythm with no ischemic changes. H/H 13.4/44.3, WBC 10.0. PT 13.1, INR 1.0. BUN/CR 39/7.14. Chest x-ray showed cardiomegaly but no acute findings. CTA was done which was negative for pulmonary embolism. In the emergency room patient received 3 and 25 mg of aspirin. Hospitalist ROS - Review of Systems Constitutional: denies: fever, chills, sweats, weakness, malaise, other Eyes: denies: pain, vision change, conjunctivae inflammation, eyelid inflam mation, redness, other ENT: denies: ear pain, ear discharge, nose pain, nose discharge, nose congestion, mouth pain, mouth swelling, throat pain, throat swelling, other Respiratory: reports: shortness of breath. denies: cough, dry, hemoptysis, SOB with excertion, pleuritic pain, sputum, wheezing, other Cardiovascular: reports: chest pain, light headedness Gastrointestinal: reports: nausea. denies: vomiting, abdominal pain, diarrhea, constipation, melena, hematochezia, other Genitourinary: denies: dysuria, frequency, incontinence, hematuria, retention, other Musculoskeletal: denies: neck pain, shoulder pain, arm pain, back pain, hand pain, leg pain, foot pain, other Skin: denies: rash, lesions, dena, bruising, other Neurological: denies: weakness, numbness, incoordination, change in speech, confusion, seizures, other - Medication Medications: Home medications include Amiodarone 200 mg twice daily Atorvastatin 80 mg daily Aspirin 325 mg daily Eliquis 5 mg twice daily Coreg 6.25 mg Hydralazine 25 mg Flexeril 10 mg Medication list taken from [facility] ED records. Patient unsure as to any of his home medications and is unable to tell me if he is on Coumadin and/or Eliquis. Will confirm dosages once home medications are reconciled. Hospitalist History - Past Medical History Other Medical History: Medical history significant for Type 2 diabetes mellitus Hypertension End-stage renal disease on dialysis Atrial fibrillation on anticoagulation Ischemic cardiomyopathy with EF of 15 to 20% End STEMI Multiple MIs with cardiac stents AICD Hyperlipidemia - Past Surgical History Other Surgical History: Past surgical history includes Cardiac stents AICD AV fistula - Family History Other Family History: Denies family history of cancer, cardiac disease - Social History Smoking Status: Former smoker Alcohol: reports: None Drugs: reports: none Living Situation: With Family Activity level: independent ambulation - Exam General Appearance: NAD, awake alert Eye: PERRL, anicteric sclera ENT: normocephalic atraumatic, no oropharyngeal lesions, moist mucosa Neck: supple, symmetric, no JVD, no thyromegaly, no lymphadenopathy, no carotid bruit Heart: irregular, murmur present Respiratory: CTAB, no wheezes, no rales, no ronchi, normal chest expansion, no tachypnea, normal percussion Gastrointestinal: soft, non-tender, non-distended, normal bowel sounds, no palpa ble masses, no hepatomegaly, no splenomegaly, no bruit Extremities: no cyanosis, no clubbing Extremities - other findings: Trace edema Skin: normal turgor, no lesions, no rashes Neurological: cranial nerve grossly intact, normal sensation to touch, no weakness, no focal deficits, no new deficit Musculoskeletal: normal tone, normal strength, no muscle wasting Psychiatric: normal affect, normal behavior, A&O x 3 Hospitalist Results - Labs Result Diagrams: 12/24/19 04:39 12/24/19 04:39 Lab results: Troponin I 0.079 ng/mL (< 0.028) H 12/23/19 12:17 Hospitalist H&P A/P - Plan Plan: Chest pain 61-year-old male with past medical history of ischemic cardiomyopathy with EF of 15 to 20% noted on March 2018 echo, multiple MIs with cardiac stents, A. fib, end-stage renal disease on dialysis, AICD, COPD with chest pain that is squeezing in nature that lasts for minutes. Pain changes with movement. EKG shows paced rhythm with no ischemic changes. Initial troponin 0 0.075, 0.079. Patient currently denies any chest pain, shortness of breath, palpitations. His vital signs are stable. Patient follows with Dr. Smith at [facility] and [facility], we will consult our cardiology team here for further assistance. Plan ASA 325, atorvastatin 80 mg Trend troponins Cardiology consult, recommendations appreciated Telemetry monitoring End-stage renal disease Patient follows with clinic physician at [facility] and [place], for Wednesday dialysis. Patient last received dialysis yesterday 12/22/2019. BUN/CR on admission 39/7.14. Potassium 4.2. Plan Nephrology consult, recommendations appreciated Trend kidney function Renally dose medications as appropriate Atrial fibrillation History of A. fib patient reports he takes blood thinner but is unsure which one. records conflicting between warfarin and Eliquis. Patient's INR on admission 1.0. Patient also on amiodarone, Coreg. Will confirm this with patient's pharmacy and resume home medications once dosage confirmed. Magnesium TSH Telemetry monitoring Resume medications once dosages confirmed Ischemic cardiomyopathy with reduced ejection fraction History of ischemic cardiomyopathy, echocardiogram from March 2018 EF of 15 to 20%. Chest x-ray shows no signs of infiltrate. BNP 201. Patient appears dry on exam. Will continue patient on 325 mg of aspirin, and Coreg once dosage confirmed. Plan Echocardiogram Continue home meds once dosages confirmed Type 2 diabetes mellitus History of type 2 diabetes mellitus patient reports he was formally on insulin but was recently taken off this. He is unable to tell me what diabetes medications he is currently taking. Will check glucose and keep on mild insulin sliding scale for now. Plan Insulin sliding scale ACHS glucose checks Hypoglycemia protocol PRN Hyperlipidemia Continue home atorvastatin 80 mg Hypertension Continue home hydralazine, Coreg once dosages confirmed. DVT prophylaxis: Anticoagulated Full code Case discussed with attending physician Dr. Rousseau.
[2019-12-23] MEDS ORDERED: HumaLOG 300 UNITS/3 ML VIAL SC PRN ×2 (14:26)
[2019-12-23] MEDS ORDERED: Dextrose 5% in Water 1,000 ML IV PRN (14:26)
[2019-12-23] MEDS ORDERED: Dextrose 50% Abboject 50 ML SYRINGE SLOW IVP PRN (14:26)
[2019-12-23 15:14] LABS: Calcium 8.4 mg/dL (7.8-10.44); Magnesium 2.4 mg/dL (1.6-2.6)
[2019-12-23] MEDS ORDERED: Ondansetron ODT 4 MG TAB SL PRN (15:15)
[2019-12-23] MEDS ORDERED: Ondansetron PF 4 MG/2 ML Vial IVP PRN (15:15)
[2019-12-23 15:18] LABS: Troponin I 0.093 ng/mL (< 0.028)
[2019-12-23 15:22] VITALS: BMI 34.7
[2019-12-23] MEDS ORDERED: Acetaminophen 650 MG/20.3 ML UDCUP PO SCH (16:15)
[2019-12-23 16:21] LABS: Troponin I 0.075 ng/mL (< 0.028)
[2019-12-23 17:43] LABS: Troponin I 0.079 ng/mL (< 0.028)
--- NOTE | 2019-12-23 18:04 | CON ---
DATE OF CONSULTATION: 12/23/2019 REASON FOR CONSULTATION: Chest pain. PRIMARY MEDICAL RECORDS DIRECTOR: Dr. Francisco. Bread Icer here at [facility] has apparently been Dr. Roblero. HISTORY OF PRESENT ILLNESS: Mr. Eaton is a 69-year-old gentleman with history of end-stage renal disease, history of heart failure, and underlying coronary artery disease. He has been having chest pain since yesterday, it is in the lower chest area across his sternum and radiates each side. It hurts worse when he sits up and when he turns from [id number]. Troponin levels were determined and they are indeterminate as they have been with him in the past. The patient has had cardiac heart catheterization and stents, but is unable to give me any further history about that. He is not aware of having any recent heart catheterization. The patient is on dialysis Wednesday, Wednesday, and Wednesday. The ejection fraction was previously thought to be 20%. PAST HISTORY: 1. End-stage renal disease, on hemodialysis. 2. Coronary artery disease. 3. Previous myocardial infarction. 4. Congestive heart failure, systolic, chronic. PAST SURGICAL HISTORY: 1. He has had a pacemaker placed, possible AICD. 2. Coronary stent implantation. 3. Dialysis access. ALLERGIES: UNKNOWN ANTIBIOTIC. OUTPATIENT MEDICATIONS: The patient takes: 1. Apixaban 2.5 mg twice a day. 2. Carvedilol 6.25 mg twice a day. 3. Atorvastatin. 4. Hydralazine. 5. Aspirin. 6. Amiodarone. REVIEW OF SYSTEMS: CONSTITUTIONAL: No significant weight gain or loss. VISION: No changes. HEARING: No changes. PULMONARY: No cough or wheezing. GASTROINTESTINAL: No nausea, vomiting, or diarrhea. SKIN: No rashes. NEUROLOGIC: No unilateral weakness or numbness. PSYCHIATRIC: No unusual depression or anxiety. PHYSICAL EXAMINATION: GENERAL: This is a pleasant elderly gentleman, 6 feet tall, 263 pounds, blood pressure 147/79, and pulse 80 and it is regular. LUNGS: Clear. CARDIAC: Normal S1 and normal S2. ABDOMEN: Obese and nontender. EXTREMITIES: No clubbing or cyanosis. Warm and dry. Mild peripheral edema. PERTINENT LABORATORY DATA: Creatinine 7.14. Troponin of 0.093, which is less than it was actually back in 03/2018, this actually went to the lower level he has had since previous admissions. Chest x-ray, a defibrillator, likely a 3-lead biventricular device, the generator is in the right side. EKG reveals atrial paced, biventricular paced rhythm. ASSESSMENT: 1. Chest pain, sounds noncardiac. 2. Coronary artery disease. Details unavailable to us. Previous echocardiogram done in 2019, ejection fraction 15% to 20%. The current chest pain sounds musculoskeletal. PLAN: 1. Give him a dose of Tylenol. 2. Re-evaluate tomorrow. 3. Other medicines, continue the same. Job ID: [id number]
[2019-12-23] MEDS ORDERED: Nitroglycerin 0.4 MG TAB (25 Tab Bottle) SL PRN (19:04)
--- NOTE | 2019-12-23 19:23 | PDOC.EVN ---
Event Note - Event Note Event Note: pt evaluated and discussed with NICK Culver - 69 y/o male with CAD, ESRD, DM, HTN, HLP who presents to the ER c/o abd/chest pressure starting last night. Pain is described as burning in quality rated 2-3/10 in intensity. He reports no sx at rest,it occurs with movement and coughing and is relieved by rest. His chart shows a hx of ischemic cardiomyopathy with ER 15-20%. Pt denies any dyspepsia, GERD sx. Exam - VS reviewed Gen - awake, alert, responsive in NAD Lungs- ctab heart -distant heart sounds, no audible murmurs Abd - soft, +BS, ttp along the RUQ that reproduces sx Impression - chest/abd pressure with reproducible component in pt at high cardiac risk. - Appreciate Cards consult - echo, tele - check RUQ ultrasound given location - prn tylenol - prn nitroglycerin DM - uncontrolled - trend blood sugars - DM prudent diet ESRD on HD with last treatment yesterday - renal diet - nephrology consult DVT prophy - ambulatory gi prophy - not indicated reviewed orders and plan of care, no questions or further needs at end of eval.
[2019-12-23] MEDS ORDERED: Atorvastatin Calcium 40 MG TAB PO SCH (21:00)
[2019-12-23] MEDS: hydrALAZINE 25 MG TAB PO SCH (21:55)
[2019-12-23] MEDS: Amiodarone 200 MG TAB PO SCH (21:55)
[2019-12-24 05:19] LABS: #Basophils 0.1 thou/uL (0.0-0.2); #Eosinphils 2.5 thou/uL (0.0-0.7); #Lymphocytes 1.2 thou/uL (1.20-3.40); %Basophils 0.7 % (0.0-1.0); %Lymphocytes 11.2 % (21.0-51.0); %Monocytes 9.3 % (0.0-10.0); %Neutrophils 55.8 % (42.0-75.0); Hemoglobin 12.8 g/dL (14.0-18.0); Mean Corpuscular HGB CONC 32.7 g/dL (32.0-36.0); Mean Corpuscular Hemoglobin 31.6 pg (27.0-31.0); Mean Corpuscular Volume 96.8 fL (78.0-98.0); Mean Platelet Volume 7.3 fL (7.4-10.4); Platelet Count 218 thou/uL (130-400); RBC Distribution Width 13.2 % (11.5-14.5); Red Blood Cell (RBC) Count 4.04 mill/uL (4.70-6.10); White Blood Cell (WBC) Count 10.7 thou/uL (4.8-10.8)
[2019-12-24 05:49] LABS: Anion Gap 18 mmol/L (10-20); BUN (Urea Nitrogen) 53 mg/dL (8.4-25.7); Calc. Creatinine Clearance 15 mL/min (70-130); Calcium 8.6 mg/dL (7.8-10.44); Carbon Dioxide 21 mmol/L (23-31); Cardiac Risk 4.5 (Less than 4.5); Chloride 98 mmol/L (98-107); Cholesterol 196 mg/dl (< 200 Desired); Estimated GFR-MDRD 7; Glucose 145 mg/dL (80-115); HDL Cholesterol 44 mg/dL (>60 Neg Risk); LDL Cholesterol, Calculated 128 mg/dL; Potassium 4.4 mmol/L (3.5-5.1); Sodium 133 mmol/L (136-145); Triglycerides 119 mg/dL (Less than 150)
[2019-12-24] MEDS ORDERED: Calcium Acetate 667 MG CAP PO SCH (08:00)
[2019-12-24] MEDS: Amiodarone 200 MG TAB PO SCH (08:54)
[2019-12-24] MEDS: hydrALAZINE 25 MG TAB PO SCH (08:54)
[2019-12-24] MEDS ORDERED: Aspirin 325 mg Enteric Coated Tablet PO SCH (09:00)
[2019-12-24] MEDS ORDERED: FLU VACC QS2020-21(65YR UP)/PF 240 MCG/0.7 ML SYRINGE IM ONE (09:00)
[2019-12-24] MEDS ORDERED: Carvedilol 6.25 MG TAB PO SCH (09:00)
[2019-12-24] MEDS ORDERED: Lidocaine Patch Removal 1 EACH TOP SCH (10:30)
[2019-12-24] MEDS ORDERED: Lidocaine 2% Viscous Solution 10 ML, Aluminum & Magnesium Hydroxide 30 ML SSW SCH (10:30)
[2019-12-24] MEDS ORDERED: Pantoprazole 40 MG VIAL IVP SCH (10:30)
--- NOTE | 2019-12-24 10:50 | ULT ---
RIGHT UPPER QUADRANT ULTRASOUND: DATE: 12/24/2019. PROVIDED CLINICAL HISTORY: Right upper quadrant pain. FINDINGS: The pancreas is largely obscured. The IVC appears normal as visualized. The liver demonstrates no m ass or intrahepatic biliary ductal dilatation with limitations in evaluating the left hepatic lobe. The gallbladder is decompressed with nonspecific wall thickening. The linoleum mechanic reports a positive sonographic Garrison's sign. Common duct is not dilated. The right kidney demonstrates no hydronephr osis or mass. IMPRESSION: Nonspecific gallbladder wall thickening with a decompressed gallbladder. POS: CARLITOS
[2019-12-24 11:06] VITALS: BP 142/69; TEMP 98.1
[2019-12-24] MEDS ORDERED: Lidocaine 5% Patch TD SCH (11:15)
[2019-12-24 12:36] LABS: SARS-CoV-2 MS2 Positive; SARS-CoV-2 N Gene Negative; SARS-CoV-2 S Gene Negative; SARS-CoV-2 by NAA Not Detected (NotDetected); SARS-CoV-2 orf1ab Negative
[2019-12-24 13:43] LABS: ALT (SGPT) 23 U/L (8-55); AST (SGOT) 18 U/L (5-34); Albumin 3.4 g/dL (3.4-4.8); Alkaline Phosphatase 83 U/L (40-110); Bilirubin, Direct 0.3 mg/dL (0.1-0.3); Bilirubin, Total 0.5 mg/dL (0.2-1.2); Protein, Total 6.1 g/dL (5.8-8.1)
[2019-12-25] MEDS ORDERED: Lidocaine 5% Patch TD SCH (09:00)
--- NOTE | 2019-12-25 11:57 | DIS ---
DATE OF ADMISSION: 12/23/2019 DATE OF DISCHARGE: 12/24/2019 DISCHARGE DIAGNOSES: 1. Chest pain. 2. Systolic heart failure, compensated. 3. Diabetes. 4. Hypertension. 5. End-stage renal disease, on dialysis. HOSPITAL COURSE: Patient is a 69-year-old male, who initially presented to the hospital with complaints of chest pain. He was seen by Cardiology, who initially thought his pain was atypical and most likely secondary to musculoskeletal related. Patient did undergo an echocardiogram, which was a suboptimal study, could not accurately determine the EF. However, the LV appeared to be moderately dilated, but there was no significant stenosis or regurgitation that was noted. Patient also underwent an abdominal ultrasound which indicated nonspecific gallbladder wall thickening with a decompressed gallbladder. Patient's LFTs were normal. I did recommend the patient to follow up with his primary care doctor in regard to that. Patient was given some Protonix and also was given a Lidoderm patch, which seemed to help with this pain. Patient then was discharged home. He will follow up with his primary care doctor. Patient also had a CTA done, which did not show any significant pulmonary embolism. PHYSICAL EXAMINATION: VITAL SIGNS: Patient's vitals on discharge, temperature of 98.1, 60, 18, 95% on room air, and 142/69. GENERAL: He is awake, alert, and oriented x3. Does not appear in distress. CV: S1, S2 present. No murmurs, rubs, or gallops. HOME MEDICATIONS: 1. Hydralazine 25 mg b.i.d. 2. PhosLo 2668 mg daily. 3. Aspirin 81 mg daily. 4. Amiodarone 200 mg b.i.d. 5. Coreg 6.25 daily. 6. Lipitor 80 mg at bedtime. 7. Vitamin p.o. daily. It is noted that on his outpatient medications he takes apixaban 2.5 mg b.i.d., however, this was not updated in the home medications. Patient also has noted that he is not on any sort of NOMI inhibitor. I will call in a low dose of lisinopril and I will call and update the patient about this. He will definitely need to follow up with Cardiology and his primary care as an outpatient. Job ID: [id number]
[2019-12-25] MEDS ORDERED: Lidocaine Patch Removal 1 EACH TOP SCH (21:00)
== END 2019-12-24 19:43 | disposition home or self-care (01) ==
LOC: ERS 11:18 → 2SW 15:19
PROVIDERS: ADMIT Family Medicine; ATTEND Family Medicine
DX: R07.89 Other chest pain (principal); I13.2 Hypertensive heart and chronic kidney disease with heart failure and with stage 5 chronic kidney disease, or end stage renal disease; E11.22 Type 2 diabetes mellitus with diabetic chronic kidney disease; N18.6 End stage renal disease; I50.22 Chronic systolic (congestive) heart failure; I25.5 Ischemic cardiomyopathy; I25.10 Atherosclerotic heart disease of native coronary artery without angina pectoris; I48.91 Unspecified atrial fibrillation; E78.5 Hyperlipidemia, unspecified; J44.9 Chronic obstructive pulmonary disease, unspecified; I25.2 Old myocardial infarction; Z79.01 Long term (current) use of anticoagulants; Z79.82 Long term (current) use of aspirin; Z79.899 Other long term (current) drug therapy; Z88.1 Allergy status to other antibiotic agents; Z95.5 Presence of coronary angioplasty implant and graft; Z99.2 Dependence on renal dialysis; Z95.810 Presence of automatic (implantable) cardiac defibrillator; Z20.828 Contact with and (suspected) exposure to other viral communicable diseases
CPT/HCPCS: 76705; 80048; 80061; 80076; 82310; 82962 ×2; 83735; 84484; 85025; 93005; 93306; 94760; 96374; 99285; G0378 ×3; U0003; 36415; 36416; 87635; C9113

== ENCOUNTER 2020-10-12 16:59 | Inpatient (IN) | payer MEDICARE ==
[2020-10-13] MEDS ORDERED: Nitroglycerin 0.4 MG TAB (25 Tab Bottle) SL PRN (00:03)
[2020-10-13] MEDS ORDERED: Benzonatate 100 MG CAP PO PRN (00:09)
[2020-10-13] MEDS ORDERED: Guaifenesin DM 100-10/5 ML UDCUP PO PRN (00:09)
[2020-10-13] MEDS ORDERED: Dextrose 50% Abboject 50 ML SYRINGE SLOW IVP PRN (00:15)
[2020-10-13] MEDS ORDERED: Dextrose 5% in Water 1,000 ML IV PRN (00:15)
[2020-10-13] MEDS ORDERED: Ondansetron PF 4 MG/2 ML Vial IVP PRN (00:20)
[2020-10-13] MEDS ORDERED: Acetaminophen 325 MG TAB PO PRN (00:20)
[2020-10-13] MEDS ORDERED: Sodium Chloride 0.9% (PF) 10 ML VIAL FS PRN (00:30)
[2020-10-13] MEDS ORDERED: Morphine 2 MG/ML VIAL SLOW IVP PRN (00:57)
[2020-10-13] MEDS ORDERED: Ivermectin 3 MG TAB PO SCH (01:00)
[2020-10-13] MEDS ORDERED: Albuterol Sulfate 2.5 mg/3 ml Neb NEB SCH ×2 (01:00)
[2020-10-13 01:07] LABS: Magnesium 2.1 mg/dL (1.6-2.6)
[2020-10-13 01:31] LABS: Thyroid Stimulating Hormone 1.1474 uIU/mL (0.35-4.94)
[2020-10-13 01:41] LABS: Troponin I 19.974 ng/mL (< 0.028)
[2020-10-13 02:52] LABS: Hemoglobin 11.6 g/dL (14.0-18.0); Mean Corpuscular HGB CONC 32.5 g/dL (32.0-36.0); Mean Corpuscular Volume 98.4 fL (78.0-98.0); Platelet Count 228 thou/uL (130-400); RBC Distribution Width 14.5 % (11.5-14.5); Red Blood Cell (RBC) Count 3.62 mill/uL (4.70-6.10)
[2020-10-13 03:11] LABS: Band 1 % (5-11); Hypochromia SLIGHT = 6-15 cells (100X) (0-5/hpf); Lymphocytes 4 % (21-51); MDiff Complete? YES; Monocytes 32 % (0-10); Neutrophil 63 % (42-75); Platelet Morphology Comment Appears Adequate
[2020-10-13] MEDS: Albuterol 200 PUFF (6.7GM INHALER) INH SCH ×4 (03:15→17:55)
[2020-10-13 03:26] LABS: Troponin I 22.573 ng/mL (< 0.028)
[2020-10-13 03:41] LABS: Anion Gap 18 mmol/L (10-20); BUN (Urea Nitrogen) 47 mg/dL (8.4-25.7); Calc. Creatinine Clearance 14 mL/min (70-130); Carbon Dioxide 25 mmol/L (23-31); Cardiac Risk 3.7 (Less than 4.5); Chloride 97 mmol/L (98-107); Cholesterol 145 mg/dl (< 200 Desired); Glucose 118 mg/dL (80-115); HDL Cholesterol 39 mg/dL (>60 Neg Risk); LDL Cholesterol, Calculated 92 mg/dL; Potassium 4.4 mmol/L (3.5-5.1); Sodium 136 mmol/L (136-145); Triglycerides 72 mg/dL (Less than 150)
[2020-10-13 03:59] LABS: Ferritin 2033.55 ng/mL (22-322)
[2020-10-13 06:29] LABS: Critical Call Chem Troponin I RESULT DECREASING; Troponin I 22.291 ng/mL (< 0.028)
[2020-10-13] MEDS: Ondansetron ODT 4 MG TAB PO PRN (06:29)
[2020-10-13] MEDS ORDERED: Budesonide 0.5 MG/2 ML NEB INH SCH (06:30)
[2020-10-13] MEDS ORDERED: Pantoprazole 40 MG VIAL IVP SCH (09:00)
[2020-10-13] MEDS ORDERED: hydrALAZINE 25 MG TAB PO SCH (09:00)
[2020-10-13] MEDS: Ascorbic Acid 500 mg Chewable Tablet PO SCH (10:01)
[2020-10-13] MEDS: Aspirin Chewable 81 MG TAB PO SCH (10:01)
[2020-10-13] MEDS: Amiodarone 200 MG TAB PO SCH ×2 (10:01→20:20)
[2020-10-13] MEDS: Clopidogrel Bisulfate 75 MG TAB PO SCH (10:02)
[2020-10-13] MEDS: Cholecalciferol 1,000 UNITS (25 MCG) TAB PO SCH (10:02)
[2020-10-13] MEDS: Dexamethasone 4 mg/ml Vial SLOW IVP SCH ×2 (10:02→20:20)
[2020-10-13] MEDS: Pantoprazole 40 MG VIAL IVP SCH (10:04)
[2020-10-13] MEDS: Zinc Sulfate 220 MG CAP PO SCH (10:10)
[2020-10-13] MEDS: Ivermectin 3 MG TAB PO SCH (10:49)
[2020-10-13] MEDS: Mometasone 200 MCG/Formoterol 5 MCG 120 PUFF INHALER INH SCH ×2 (10:50→17:54)
[2020-10-13 12:10] VITALS: BMI 35.6
[2020-10-13] MEDS: Enoxaparin Sodium 120 MG/0.8 ML SYRINGE SC SCH (17:16)
[2020-10-13] MEDS: HumaLOG 300 UNITS/3 ML VIAL SC PRN (17:48)
[2020-10-13] MEDS ORDERED: Acetaminophen/Codeine 30-300mg Tablet PO PRN ×2 (18:45→19:14)
[2020-10-13] MEDS ORDERED: Warfarin Sodium 5 MG TAB PO SCH (19:15)
[2020-10-13] MEDS: hydrALAZINE 25 MG TAB PO SCH (20:19)
[2020-10-13] MEDS: Atorvastatin Calcium 10 MG TAB PO SCH (20:19)
[2020-10-13] MEDS: Melatonin 3 MG TAB PO SCH (20:39)
[2020-10-14] MEDS: Albuterol 200 PUFF (6.7GM INHALER) INH SCH ×4 (00:16→19:17)
[2020-10-14] MEDS: HumaLOG 300 UNITS/3 ML VIAL SC PRN ×4 (00:17→17:01)
[2020-10-14 05:05] LABS: INR-International Normal Ratio 1.7; Prothrombin Time 20.2 sec (12.0-14.7)
[2020-10-14 05:19] LABS: Anion Gap 21 mmol/L (10-20); BUN (Urea Nitrogen) 82 mg/dL (8.4-25.7); Calc. Creatinine Clearance 11 mL/min (70-130); Calcium 8.3 mg/dL (7.8-10.44); Carbon Dioxide 19 mmol/L (23-31); Chloride 96 mmol/L (98-107); Glucose 290 mg/dL (80-115); Sodium 131 mmol/L (136-145)
[2020-10-14] MEDS: Mometasone 200 MCG/Formoterol 5 MCG 120 PUFF INHALER INH SCH ×2 (05:32→19:17)
[2020-10-14 06:11] LABS: Hemoglobin 11.4 g/dL (14.0-18.0); Platelet Count 208 thou/uL (130-400)
[2020-10-14] MEDS: Amiodarone 200 MG TAB PO SCH (08:55)
[2020-10-14] MEDS: Ascorbic Acid 500 mg Chewable Tablet PO SCH (08:56)
[2020-10-14] MEDS: Aspirin Chewable 81 MG TAB PO SCH (08:56)
[2020-10-14] MEDS: Cholecalciferol 1,000 UNITS (25 MCG) TAB PO SCH (08:56)
[2020-10-14] MEDS: Clopidogrel Bisulfate 75 MG TAB PO SCH (08:57)
[2020-10-14] MEDS: Dexamethasone 4 mg/ml Vial SLOW IVP SCH (08:57)
[2020-10-14] MEDS: hydrALAZINE 25 MG TAB PO SCH ×2 (08:58→09:41)
[2020-10-14] MEDS: Zinc Sulfate 220 MG CAP PO SCH (08:58)
[2020-10-14] MEDS: Pantoprazole 40 MG VIAL IVP SCH (08:59)
[2020-10-14] MEDS ORDERED: Heparin 10,000 UNITS/ 10 ML VIAL ONE (09:10)
[2020-10-14] MEDS: Ivermectin 3 MG TAB PO SCH (13:22)
[2020-10-14 15:33] LABS: SARS-CoV-2 IgG Ab Non-Reactive (NonReactive)
[2020-10-14 15:54] LABS: SARS-CoV-2 IgG Index 0.05 S/CO (< 1.40)
[2020-10-14] MEDS: Enoxaparin Sodium 120 MG/0.8 ML SYRINGE SC SCH (16:27)
[2020-10-14] MEDS ORDERED: Warfarin Sodium 5 MG TAB PO SCH (17:00)
[2020-10-15] MEDS: Dexamethasone 4 mg/ml Vial SLOW IVP SCH ×3 (00:15→21:15)
[2020-10-15] MEDS: Atorvastatin Calcium 10 MG TAB PO SCH ×2 (00:15→21:13)
[2020-10-15] MEDS: Amiodarone 200 MG TAB PO SCH ×3 (00:15→21:13)
[2020-10-15] MEDS: hydrALAZINE 25 MG TAB PO SCH ×3 (00:15→21:15)
[2020-10-15] MEDS: Melatonin 3 MG TAB PO SCH ×2 (00:15→21:13)
[2020-10-15] MEDS: Albuterol 200 PUFF (6.7GM INHALER) INH SCH ×4 (01:41→17:55)
[2020-10-15 05:32] LABS: INR-International Normal Ratio 1.5; Prothrombin Time 18.1 sec (12.0-14.7)
[2020-10-15] MEDS: Mometasone 200 MCG/Formoterol 5 MCG 120 PUFF INHALER INH SCH ×2 (06:45→17:55)
[2020-10-15] MEDS: HumaLOG 300 UNITS/3 ML VIAL SC PRN ×4 (06:46→21:18)
[2020-10-15] MEDS: Ascorbic Acid 500 mg Chewable Tablet PO SCH (07:40)
[2020-10-15] MEDS: Aspirin Chewable 81 MG TAB PO SCH (07:41)
[2020-10-15] MEDS: Cholecalciferol 1,000 UNITS (25 MCG) TAB PO SCH (07:41)
[2020-10-15] MEDS: Clopidogrel Bisulfate 75 MG TAB PO SCH (07:41)
[2020-10-15] MEDS: Zinc Sulfate 220 MG CAP PO SCH (07:44)
[2020-10-15] MEDS: Pantoprazole 40 MG VIAL IVP SCH (07:44)
[2020-10-15] MEDS: Ivermectin 3 MG TAB PO SCH (08:01)
[2020-10-15] MEDS: Enoxaparin Sodium 120 MG/0.8 ML SYRINGE SC SCH (15:49)
[2020-10-16] MEDS: Albuterol 200 PUFF (6.7GM INHALER) INH SCH ×3 (01:33→15:08)
[2020-10-16] MEDS: Ondansetron ODT 4 MG TAB PO PRN (02:47)
[2020-10-16 05:30] LABS: INR-International Normal Ratio 1.4; Prothrombin Time 16.7 sec (12.0-14.7)
[2020-10-16] MEDS: Mometasone 200 MCG/Formoterol 5 MCG 120 PUFF INHALER INH SCH (06:25)
[2020-10-16] MEDS: HumaLOG 300 UNITS/3 ML VIAL SC PRN (06:26)
[2020-10-16] MEDS: hydrALAZINE 25 MG TAB PO SCH (09:27)
[2020-10-16] MEDS: Clopidogrel Bisulfate 75 MG TAB PO SCH (09:27)
[2020-10-16] MEDS: Ascorbic Acid 500 mg Chewable Tablet PO SCH (09:27)
[2020-10-16] MEDS: Aspirin Chewable 81 MG TAB PO SCH (09:27)
[2020-10-16] MEDS: Amiodarone 200 MG TAB PO SCH (09:27)
[2020-10-16] MEDS: Cholecalciferol 1,000 UNITS (25 MCG) TAB PO SCH (09:27)
[2020-10-16] MEDS: Dexamethasone 4 mg/ml Vial SLOW IVP SCH (09:27)
[2020-10-16] MEDS: Pantoprazole 40 MG VIAL IVP SCH (09:28)
[2020-10-16] MEDS: Ivermectin 3 MG TAB PO SCH (09:28)
[2020-10-16] MEDS: Zinc Sulfate 220 MG CAP PO SCH (09:28)
[2020-10-16 12:42] VITALS: BP 97/60; TEMP 98.2
== END 2020-10-16 16:15 | disposition home or self-care (01) | DRG 177 ==
LOC: ERS 16:59 → 2SW 23:19 → OBSVTOIN 10-13 04:25
PROVIDERS: ADMIT Internal Medicine; ATTEND Family Medicine
PROC: 5A09357 Assistance with Respiratory Ventilation, Less than 24 Consecutive Hours, Continuous Positive Airway Pressure (ICD-10-PCS; principal; 2020-10-13)
PROC: 4B02XTZ Measurement of Cardiac Defibrillator, External Approach (ICD-10-PCS; 2020-10-13)
PROC: 8E0ZXY6 Isolation (ICD-10-PCS; 2020-10-13)
PROC: 5A1D70Z Performance of Urinary Filtration, Intermittent, Less than 6 Hours Per Day (ICD-10-PCS; 2020-10-14)
DX: U07.1 COVID-19 (principal); J12.82 Pneumonia due to coronavirus disease 2019; J96.21 Acute and chronic respiratory failure with hypoxia; N18.6 End stage renal disease; I21.4 Non-ST elevation (NSTEMI) myocardial infarction; I13.2 Hypertensive heart and chronic kidney disease with heart failure and with stage 5 chronic kidney disease, or end stage renal disease; J44.0 Chronic obstructive pulmonary disease with (acute) lower respiratory infection; E87.1 Hypo-osmolality and hyponatremia; E87.2 Acidosis; E11.22 Type 2 diabetes mellitus with diabetic chronic kidney disease; I50.9 Heart failure, unspecified; G47.33 Obstructive sleep apnea (adult) (pediatric); E78.5 Hyperlipidemia, unspecified; I25.118 Atherosclerotic heart disease of native coronary artery with other forms of angina pectoris; I48.0 Paroxysmal atrial fibrillation; E66.9 Obesity, unspecified; E78.00 Pure hypercholesterolemia, unspecified; I08.3 Combined rheumatic disorders of mitral, aortic and tricuspid valves; D63.1 Anemia in chronic kidney disease; I25.5 Ischemic cardiomyopathy; Z99.2 Dependence on renal dialysis; Z99.81 Dependence on supplemental oxygen; I25.2 Old myocardial infarction; Z88.1 Allergy status to other antibiotic agents; Z79.899 Other long term (current) drug therapy; Z79.02 Long term (current) use of antithrombotics/antiplatelets; Z79.01 Long term (current) use of anticoagulants; Z95.5 Presence of coronary angioplasty implant and graft; Z95.810 Presence of automatic (implantable) cardiac defibrillator; Z98.890 Other specified postprocedural states; Z82.49 Family history of ischemic heart disease and other diseases of the circulatory system; Z68.34 Body mass index [BMI] 34.0-34.9, adult; Z99.89 Dependence on other enabling machines and devices
CPT/HCPCS: 36415; 36416; 80048; 80061; 82553; 82728; 83735; 84443; 85014; 85018; 85025; 85049; 85379; 85610; 86140; 86769; 90935; 93005; 93306; 94760; C9113; G0257; G0378; J1100; J1644; J1650; J2270; J2405; J3490; Q0162

== ENCOUNTER 2020-10-22 10:28 | Inpatient (IN) | payer MEDICARE ==
[~2020-10-22 10:28] MED LIST changes: +Iopamidol-370 76% 500 ML 1 ML ONE; -Lidocaine 1% PF 5 ML VIAL ONE; -PHENYLEPHRINE-NS 100 MCG/ML 10 ML SYRINGE ONE; -PROPOFOL 200 MG/20 ML VIAL ONE; -Rocuronium Bromide 10 MG/ML (10ML VIAL) ONE
[2020-10-22 11:03] LABS: #Eosinphils 0.1 thou/uL (0.0-0.7); #Lymphocytes 0.4 thou/uL (1.20-3.40); #Monocytes 0.6 thou/uL (0.11-0.59); #Neutrophils 5.5 thou/uL (1.40-6.50); %Lymphocytes 6.6 % (21.0-51.0); %Monocytes 8.5 % (0.0-10.0); %Neutrophils 83.9 % (42.0-75.0); Hemoglobin 12.4 g/dL (14.0-18.0); Mean Corpuscular HGB CONC 33.2 g/dL (32.0-36.0); Mean Corpuscular Hemoglobin 32.4 pg (27.0-31.0); Mean Corpuscular Volume 97.6 fL (78.0-98.0); Mean Platelet Volume 9.1 fL (7.4-10.4); Platelet Count 120 thou/uL (130-400); RBC Distribution Width 14.3 % (11.5-14.5); Red Blood Cell (RBC) Count 3.83 mill/uL (4.70-6.10); White Blood Cell (WBC) Count 6.5 thou/uL (4.8-10.8)
[2020-10-22 11:24] LABS: ALT (SGPT) 174 U/L (8-55); AST (SGOT) 79 U/L (5-34); Albumin 2.9 g/dL (3.4-4.8); Alkaline Phosphatase 125 U/L (40-110); Anion Gap 21 mmol/L (10-20); BUN (Urea Nitrogen) 83 mg/dL (8.4-25.7); Calc. Creatinine Clearance 0 mL/min (70-130); Calcium 8.6 mg/dL (7.8-10.44); Carbon Dioxide 20 mmol/L (23-31); Chloride 100 mmol/L (98-107); Globulin 2.9 g/dL (2.4-3.5); Glucose 205 mg/dL (80-115); Potassium 4.7 mmol/L (3.5-5.1); Protein, Total 5.8 g/dL (5.8-8.1); Sodium 136 mmol/L (136-145)
[2020-10-22 12:08] LABS: CRP (Inflammatory) 5.77 mg/dL (= or < 0.5)
[2020-10-22 13:09] LABS: CKMB 5.9 ng/mL (0-6.6)
[2020-10-22] MEDS ORDERED: HumaLOG 300 UNITS/3 ML VIAL SC PRN (14:09)
[2020-10-22] MEDS ORDERED: Dextrose 5% in Water 1,000 ML IV PRN (14:09)
[2020-10-22] MEDS ORDERED: hydrALAZINE 20 MG/ML VIAL SLOW IVP PRN (14:09)
[2020-10-22] MEDS ORDERED: Heparin 25,000 units/D5W 500 ML IVPB SCH (14:15)
[2020-10-22] MEDS ORDERED: Heparin 10,000 UNITS/ 10 ML VIAL SLOW IVP SCH (14:15)
[2020-10-22 15:15] LABS: INR-International Normal Ratio 1.2; PTT 27.5 sec (22.9-36.1); Prothrombin Time 15.3 sec (12.0-14.7)
[2020-10-22] MEDS ORDERED: Heparin 25,000 units/D5W 500 ML ONE (15:24)
[2020-10-22 15:32] LABS: Troponin I 1.088 ng/mL (< 0.028)
[2020-10-22 15:39] LABS: Hemoglobin 12.1 g/dL (14.0-18.0); Platelet Count 128 thou/uL (130-400)
[2020-10-22 17:38] LABS: Critical Call Chem Troponin I RESULT DECREASING; Troponin I 1.058 ng/mL (< 0.028)
[2020-10-22 20:16] LABS: PTT 134.5 sec (22.9-36.1)
[2020-10-22] MEDS ORDERED: Amiodarone 200 MG TAB PO SCH (21:00)
[2020-10-22] MEDS: hydrALAZINE 25 MG TAB PO SCH (21:47)
[2020-10-22] MEDS: Ivermectin 3 MG TAB PO SCH (21:47)
[2020-10-22] MEDS: Atorvastatin Calcium 40 MG TAB PO SCH (21:47)
[2020-10-22] MEDS: Dexamethasone 4 mg/ml Vial SLOW IVP SCH (21:49)
[2020-10-22] MEDS: Benzonatate 100 MG CAP PO PRN (23:45)
[2020-10-23] MEDS: HumaLOG 300 UNITS/3 ML VIAL SC PRN ×2 (06:03→17:15)
[2020-10-23 06:14] LABS: #Basophils 0.1 thou/uL (0.0-0.2); #Lymphocytes 0.2 thou/uL (1.20-3.40); #Monocytes 0.2 thou/uL (0.11-0.59); #Neutrophils 6.6 thou/uL (1.40-6.50); %Basophils 1.4 % (0.0-1.0); %Eosinophils 0.4 % (0.0-10.0); %Lymphocytes 2.6 % (21.0-51.0); %Monocytes 2.7 % (0.0-10.0); %Neutrophils 92.8 % (42.0-75.0); Hemoglobin 12.4 g/dL (14.0-18.0); Mean Corpuscular HGB CONC 32.2 g/dL (32.0-36.0); Mean Corpuscular Hemoglobin 31.6 pg (27.0-31.0); Mean Corpuscular Volume 98.2 fL (78.0-98.0); Platelet Count 138 thou/uL (130-400); Red Blood Cell (RBC) Count 3.91 mill/uL (4.70-6.10); White Blood Cell (WBC) Count 7.1 thou/uL (4.8-10.8)
[2020-10-23 06:32] LABS: Anion Gap 20 mmol/L (10-20); BUN (Urea Nitrogen) 95 mg/dL (8.4-25.7); Calc. Creatinine Clearance 12 mL/min (70-130); Calcium 8.4 mg/dL (7.8-10.44); Carbon Dioxide 22 mmol/L (23-31); Chloride 98 mmol/L (98-107); Glucose 352 mg/dL (80-115); Potassium 5.3 mmol/L (3.5-5.1); Sodium 135 mmol/L (136-145)
[2020-10-23] MEDS: Clopidogrel Bisulfate 75 MG TAB PO SCH (09:04)
[2020-10-23] MEDS: hydrALAZINE 25 MG TAB PO SCH ×2 (09:04→23:22)
[2020-10-23] MEDS: Amiodarone 200 MG TAB PO SCH (09:04)
[2020-10-23] MEDS: Aspirin Chewable 81 MG TAB PO SCH (09:04)
[2020-10-23] MEDS ORDERED: Heparin 10,000 UNITS/ 10 ML VIAL SLOW IVP SCH ×2 (09:45→10:00)
[2020-10-23] MEDS: Lantus 1000 UNITS/10 ML VIAL SC SCH (09:46)
[2020-10-23] MEDS: Heparin 25,000 units/D5W 500 ML IVPB SCH (10:16)
[2020-10-23] MEDS: Dexamethasone 4 mg/ml Vial SLOW IVP SCH (16:07)
[2020-10-23] MEDS: Ivermectin 3 MG TAB PO SCH (16:08)
[2020-10-23] MEDS: HYDROcodone/Acetaminophen 5/325 mg Tablet PO PRN (17:13)
[2020-10-23] MEDS: Benzonatate 100 MG CAP PO PRN (17:13)
[2020-10-23] MEDS: Atorvastatin Calcium 40 MG TAB PO SCH (23:22)
[2020-10-24] MEDS: HYDROcodone/Acetaminophen 5/325 mg Tablet PO PRN ×3 (01:28→14:07)
[2020-10-24] MEDS: Heparin 25,000 units/D5W 500 ML IVPB SCH (05:19)
[2020-10-24] MEDS: HumaLOG 300 UNITS/3 ML VIAL SC PRN (05:54)
[2020-10-24 07:52] LABS: Albumin 2.6 g/dL (3.4-4.8); Anion Gap 15 mmol/L (10-20); BUN (Urea Nitrogen) 57 mg/dL (8.4-25.7); BUN/Creatinine Ratio 7.81; Calc. Creatinine Clearance 16 mL/min (70-130); Calcium 8.1 mg/dL (7.8-10.44); Carbon Dioxide 26 mmol/L (23-31); Chloride 99 mmol/L (98-107); Glucose 305 mg/dL (80-115); Phosphorus 8.3 mg/dL (2.3-4.7); Potassium 4.4 mmol/L (3.5-5.1); Sodium 136 mmol/L (136-145)
[2020-10-24] MEDS: hydrALAZINE 25 MG TAB PO SCH ×2 (08:35→21:10)
[2020-10-24] MEDS: Amiodarone 200 MG TAB PO SCH (08:35)
[2020-10-24] MEDS: Aspirin Chewable 81 MG TAB PO SCH (08:35)
[2020-10-24] MEDS: Sevelamer Carbonate 800 MG TAB PO SCH ×3 (08:35→17:15)
[2020-10-24] MEDS: Clopidogrel Bisulfate 75 MG TAB PO SCH (08:35)
[2020-10-24] MEDS: Lantus 1000 UNITS/10 ML VIAL SC SCH (08:36)
[2020-10-24] MEDS ORDERED: Torsemide 100 MG TAB PO SCH (09:15)
[2020-10-24 15:45] LABS: Hemoglobin 11.2 g/dL (14.0-18.0); Platelet Count 160 thou/uL (130-400)
[2020-10-24] MEDS: Dexamethasone 4 mg/ml Vial SLOW IVP SCH (17:15)
[2020-10-24] MEDS: Ivermectin 3 MG TAB PO SCH (17:16)
[2020-10-24] MEDS: Atorvastatin Calcium 40 MG TAB PO SCH (21:10)
[2020-10-25] MEDS: Acetaminophen 325 MG TAB PO PRN ×2 (01:13→06:07)
[2020-10-25] MEDS ORDERED: Midodrine HCl 5 MG TAB PO SCH (01:45)
[2020-10-25] MEDS: Heparin 25,000 units/D5W 500 ML IVPB SCH (05:45)
[2020-10-25] MEDS: HumaLOG 300 UNITS/3 ML VIAL SC PRN (06:02)
[2020-10-25] MEDS: Lantus 1000 UNITS/10 ML VIAL SC SCH (08:24)
[2020-10-25] MEDS: hydrALAZINE 25 MG TAB PO SCH (08:25)
[2020-10-25] MEDS: Sevelamer Carbonate 800 MG TAB PO SCH ×3 (08:25→17:23)
[2020-10-25] MEDS: Midodrine HCl 5 MG TAB PO SCH ×3 (08:25→23:07)
[2020-10-25] MEDS: Clopidogrel Bisulfate 75 MG TAB PO SCH (08:25)
[2020-10-25] MEDS: Aspirin Chewable 81 MG TAB PO SCH (08:25)
[2020-10-25] MEDS ORDERED: Morphine 4 MG/ML VIAL SLOW IVP PRN (08:26)
[2020-10-25] MEDS ORDERED: Morphine 2 MG/ML VIAL SLOW IVP PRN (08:26)
[2020-10-25] MEDS ORDERED: Torsemide 100 MG TAB PO SCH (09:00)
[2020-10-25 09:01] LABS: #Lymphocytes 0.5 thou/uL (1.20-3.40); #Monocytes 0.4 thou/uL (0.11-0.59); #Neutrophils 10.4 thou/uL (1.40-6.50); %Eosinophils 0.1 % (0.0-10.0); %Lymphocytes 4.6 % (21.0-51.0); %Monocytes 3.7 % (0.0-10.0); %Neutrophils 91.7 % (42.0-75.0); Hemoglobin 10.2 g/dL (14.0-18.0); Mean Corpuscular HGB CONC 32.9 g/dL (32.0-36.0); Mean Corpuscular Hemoglobin 32.1 pg (27.0-31.0); Mean Corpuscular Volume 97.6 fL (78.0-98.0); Mean Platelet Volume 9.1 fL (7.4-10.4); Platelet Count 174 thou/uL (130-400); Red Blood Cell (RBC) Count 3.16 mill/uL (4.70-6.10); White Blood Cell (WBC) Count 11.4 thou/uL (4.8-10.8)
[2020-10-25 09:20] LABS: ALT (SGPT) 90 U/L (8-55); AST (SGOT) 56 U/L (5-34); Albumin 2.5 g/dL (3.4-4.8); Alkaline Phosphatase 93 U/L (40-110); Anion Gap 20 mmol/L (10-20); BUN (Urea Nitrogen) 79 mg/dL (8.4-25.7); Bilirubin, Total 0.8 mg/dL (0.2-1.2); Calc. Creatinine Clearance 13 mL/min (70-130); Calcium 8.3 mg/dL (7.8-10.44); Carbon Dioxide 24 mmol/L (23-31); Chloride 98 mmol/L (98-107); Globulin 2.5 g/dL (2.4-3.5); Glucose 177 mg/dL (80-115); Sodium 137 mmol/L (136-145)
[2020-10-25] MEDS: Saccharomyces boulardii 250 MG CAP PO SCH (09:48)
[2020-10-25] MEDS: Cefepime 1 GM in Sodium Chloride 0.9% 100 ML IVPB SCH ×2 (09:48→23:07)
[2020-10-25] MEDS ORDERED: Iopamidol-370 76% 500 ML 1 ML ONE (10:04)
[2020-10-25 15:07] LABS: Hemoglobin 9.8 g/dL (14.0-18.0); Platelet Count 168 thou/uL (130-400)
[2020-10-25] MEDS: Dexamethasone 4 mg/ml Vial SLOW IVP SCH (17:24)
[2020-10-25 19:24] LABS: Hemoglobin 8.8 g/dL (14.0-18.0); Platelet Count 169 thou/uL (130-400)
[2020-10-25 21:21] LABS: Hemoglobin 8.8 g/dL (14.0-18.0); Platelet Count 172 thou/uL (130-400)
[2020-10-25] MEDS: Atorvastatin Calcium 40 MG TAB PO SCH (23:07)
[2020-10-26 00:57] LABS: Hemoglobin 8.5 g/dL (14.0-18.0); Platelet Count 180 thou/uL (130-400)
[2020-10-26 04:45] LABS: Hemoglobin 8.6 g/dL (14.0-18.0); Platelet Count 170 thou/uL (130-400)
[2020-10-26 06:10] LABS: Albumin 2.9 g/dL (3.4-4.8); Anion Gap 18 mmol/L (10-20); BUN (Urea Nitrogen) 43 mg/dL (8.4-25.7); BUN/Creatinine Ratio 7.62; Calc. Creatinine Clearance 21 mL/min (70-130); Calcium 8.9 mg/dL (7.8-10.44); Carbon Dioxide 27 mmol/L (23-31); Chloride 98 mmol/L (98-107); Glucose 98 mg/dL (80-115); Phosphorus 7.4 mg/dL (2.3-4.7); Potassium 4.6 mmol/L (3.5-5.1); Sodium 138 mmol/L (136-145)
[2020-10-26] MEDS ORDERED: Ondansetron ODT 4 MG TAB PO PRN (06:38)
[2020-10-26] MEDS: Ondansetron PF 4 MG/2 ML Vial IVP PRN ×2 (06:46→14:11)
[2020-10-26 07:30] LABS: Hemoglobin 8.3 g/dL (14.0-18.0); Platelet Count 181 thou/uL (130-400)
[2020-10-26] MEDS: Aspirin Chewable 81 MG TAB PO SCH (10:04)
[2020-10-26] MEDS: Clopidogrel Bisulfate 75 MG TAB PO SCH (10:04)
[2020-10-26] MEDS: Sevelamer Carbonate 800 MG TAB PO SCH ×3 (10:04→17:22)
[2020-10-26] MEDS: Saccharomyces boulardii 250 MG CAP PO SCH (10:04)
[2020-10-26] MEDS: Midodrine HCl 5 MG TAB PO SCH ×3 (10:05→21:09)
[2020-10-26] MEDS: Cefepime 1 GM in Sodium Chloride 0.9% 100 ML IVPB SCH ×2 (10:05→21:08)
[2020-10-26] MEDS: Lantus 1000 UNITS/10 ML VIAL SC SCH (10:08)
[2020-10-26 10:31] LABS: Hemoglobin 8.4 g/dL (14.0-18.0); Platelet Count 176 thou/uL (130-400)
[2020-10-26 13:29] LABS: Hemoglobin 9.3 g/dL (14.0-18.0); Platelet Count 195 thou/uL (130-400)
[2020-10-26] MEDS ORDERED: Aspirin 325 MG TAB PO SCH (15:00)
[2020-10-26 16:07] LABS: CKMB 7.5 ng/mL (0-6.6)
[2020-10-26] MEDS: Dexamethasone 4 mg/ml Vial SLOW IVP SCH (17:20)
[2020-10-26] MEDS: Atorvastatin Calcium 40 MG TAB PO SCH (21:08)
[2020-10-26] MEDS: Nitroglycerin 2% Ointment 1 INCH/1 GM Packet TOP SCH (21:10)
[2020-10-27 05:44] LABS: Albumin 2.7 g/dL (3.4-4.8); Anion Gap 20 mmol/L (10-20); BUN (Urea Nitrogen) 74 mg/dL (8.4-25.7); BUN/Creatinine Ratio 9.26; Calc. Creatinine Clearance 15 mL/min (70-130); Calcium 8.8 mg/dL (7.8-10.44); Carbon Dioxide 24 mmol/L (23-31); Chloride 98 mmol/L (98-107); Glucose 103 mg/dL (80-115); Phosphorus 9.4 mg/dL (2.3-4.7); Potassium 5.2 mmol/L (3.5-5.1); Sodium 137 mmol/L (136-145)
[2020-10-27] MEDS: Nitroglycerin 2% Ointment 1 INCH/1 GM Packet TOP SCH ×2 (06:10→06:11)
[2020-10-27] MEDS: Sevelamer Carbonate 800 MG TAB PO SCH ×3 (08:39→17:10)
[2020-10-27] MEDS: Clopidogrel Bisulfate 75 MG TAB PO SCH (08:40)
[2020-10-27] MEDS: Aspirin Chewable 81 MG TAB PO SCH (08:40)
[2020-10-27] MEDS: Saccharomyces boulardii 250 MG CAP PO SCH (08:40)
[2020-10-27] MEDS: Cefepime 1 GM in Sodium Chloride 0.9% 100 ML IVPB SCH ×2 (08:40→20:58)
[2020-10-27] MEDS: Midodrine HCl 5 MG TAB PO SCH ×3 (08:40→20:58)
[2020-10-27] MEDS: Lantus 1000 UNITS/10 ML VIAL SC SCH (08:42)
[2020-10-27] MEDS: Dexamethasone 4 mg/ml Vial SLOW IVP SCH (17:10)
[2020-10-27] MEDS: Atorvastatin Calcium 40 MG TAB PO SCH (20:57)
[2020-10-28 05:23] LABS: Albumin 2.6 g/dL (3.4-4.8); Anion Gap 22 mmol/L (10-20); BUN (Urea Nitrogen) 93 mg/dL (8.4-25.7); BUN/Creatinine Ratio 9.99; Calc. Creatinine Clearance 13 mL/min (70-130); Calcium 8.5 mg/dL (7.8-10.44); Carbon Dioxide 22 mmol/L (23-31); Chloride 94 mmol/L (98-107); Glucose 158 mg/dL (80-115); Sodium 133 mmol/L (136-145)
[2020-10-28 05:30] LABS: Phosphorus 9.7 mg/dL (2.3-4.7)
[2020-10-28 05:33] LABS: Hemoglobin 7.5 g/dL (14.0-18.0); Hypochromia SLIGHT = 6-15 cells (100X) (0-5/hpf); Lymphocytes 2 % (21-51); MDiff Complete? YES; Mean Corpuscular HGB CONC 31.9 g/dL (32.0-36.0); Mean Corpuscular Hemoglobin 30.9 pg (27.0-31.0); Mean Corpuscular Volume 96.8 fL (78.0-98.0); Mean Platelet Volume 7.9 fL (7.4-10.4); Monocytes 1 % (0-10); Neutrophil 97 % (42-75); Nucleated RBC 1 % (0); Platelet Count 238 thou/uL (130-400); Platelet Morphology Comment Appears Adequate; Red Blood Cell (RBC) Count 2.42 mill/uL (4.70-6.10); White Blood Cell (WBC) Count 14.9 thou/uL (4.8-10.8)
[2020-10-28] MEDS: Sevelamer Carbonate 800 MG TAB PO SCH ×3 (09:48→16:58)
[2020-10-28] MEDS: Aspirin Chewable 81 MG TAB PO SCH (09:48)
[2020-10-28] MEDS: Lantus 1000 UNITS/10 ML VIAL SC SCH (09:49)
[2020-10-28] MEDS: Clopidogrel Bisulfate 75 MG TAB PO SCH (09:49)
[2020-10-28] MEDS: Saccharomyces boulardii 250 MG CAP PO SCH (09:52)
[2020-10-28] MEDS: Cefepime 1 GM in Sodium Chloride 0.9% 100 ML IVPB SCH ×2 (10:04→21:51)
[2020-10-28] MEDS: Midodrine HCl 5 MG TAB PO SCH ×4 (10:05→21:52)
[2020-10-28] MEDS: Dexamethasone 4 mg/ml Vial SLOW IVP SCH (18:51)
[2020-10-28] MEDS: Atorvastatin Calcium 40 MG TAB PO SCH (21:52)
[2020-10-29 05:47] LABS: Albumin 2.5 g/dL (3.4-4.8); Anion Gap 16 mmol/L (10-20); BUN (Urea Nitrogen) 58 mg/dL (8.4-25.7); BUN/Creatinine Ratio 9.11; Calc. Creatinine Clearance 19 mL/min (70-130); Calcium 8.3 mg/dL (7.8-10.44); Carbon Dioxide 27 mmol/L (23-31); Chloride 98 mmol/L (98-107); Glucose 67 mg/dL (80-115); Phosphorus 6.6 mg/dL (2.3-4.7); Potassium 4.4 mmol/L (3.5-5.1); Sodium 137 mmol/L (136-145)
[2020-10-29] MEDS: Cefepime 1 GM in Sodium Chloride 0.9% 100 ML IVPB SCH (09:08)
[2020-10-29] MEDS: Sevelamer Carbonate 800 MG TAB PO SCH ×3 (09:10→16:26)
[2020-10-29] MEDS: Clopidogrel Bisulfate 75 MG TAB PO SCH (09:10)
[2020-10-29] MEDS: Saccharomyces boulardii 250 MG CAP PO SCH (09:10)
[2020-10-29] MEDS: Aspirin Chewable 81 MG TAB PO SCH (09:11)
[2020-10-29] MEDS: Lantus 1000 UNITS/10 ML VIAL SC SCH (09:12)
[2020-10-29 11:29] LABS: Iron 38 ug/dL (65-175); Iron Binding Capacity, Total 188 mcg/dL (261-462)
[2020-10-29] MEDS: Midodrine HCl 5 MG TAB PO SCH ×3 (13:20→21:42)
[2020-10-29] MEDS: HumaLOG 300 UNITS/3 ML VIAL SC PRN (16:25)
[2020-10-29] MEDS: Dexamethasone 4 mg/ml Vial SLOW IVP SCH (16:26)
[2020-10-29] MEDS ORDERED: CEFEPIME HCL IN DEXTROSE 5 % 1 GM in Premix Bag 1 BAG IVPB SCH (21:15)
[2020-10-29] MEDS: Atorvastatin Calcium 40 MG TAB PO SCH (21:42)
[2020-10-30 05:03] LABS: #Lymphocytes 0.3 thou/uL (1.20-3.40); #Monocytes 0.6 thou/uL (0.11-0.59); #Neutrophils 13.3 thou/uL (1.40-6.50); %Eosinophils 0.1 % (0.0-10.0); %Monocytes 4.4 % (0.0-10.0); %Neutrophils 93.5 % (42.0-75.0); Hemoglobin 7.8 g/dL (14.0-18.0); Mean Corpuscular HGB CONC 32.2 g/dL (32.0-36.0); Mean Corpuscular Hemoglobin 31.5 pg (27.0-31.0); Mean Corpuscular Volume 97.6 fL (78.0-98.0); Mean Platelet Volume 7.5 fL (7.4-10.4); Platelet Count 233 thou/uL (130-400); RBC Distribution Width 14.2 % (11.5-14.5); Red Blood Cell (RBC) Count 2.48 mill/uL (4.70-6.10); White Blood Cell (WBC) Count 14.2 thou/uL (4.8-10.8)
[2020-10-30 05:25] LABS: Anion Gap 20 mmol/L (10-20); BUN (Urea Nitrogen) 79 mg/dL (8.4-25.7); CRP (Inflammatory) 12.92 mg/dL (= or < 0.5); Calc. Creatinine Clearance 14 mL/min (70-130); Calcium 8.2 mg/dL (7.8-10.44); Carbon Dioxide 25 mmol/L (23-31); Chloride 95 mmol/L (98-107); Glucose 268 mg/dL (80-115); Potassium 4.8 mmol/L (3.5-5.1); Sodium 135 mmol/L (136-145)
[2020-10-30] MEDS: Sevelamer Carbonate 800 MG TAB PO SCH ×3 (08:26→16:54)
[2020-10-30] MEDS: Clopidogrel Bisulfate 75 MG TAB PO SCH (08:26)
[2020-10-30] MEDS: Saccharomyces boulardii 250 MG CAP PO SCH (08:27)
[2020-10-30] MEDS: Aspirin Chewable 81 MG TAB PO SCH (08:27)
[2020-10-30] MEDS: Lantus 1000 UNITS/10 ML VIAL SC SCH (08:28)
[2020-10-30] MEDS: Midodrine HCl 5 MG TAB PO SCH ×3 (08:41→21:21)
[2020-10-30] MEDS ORDERED: Epoetin (ESRD) 20,000 UNITS/ML SC SCH (09:00)
[2020-10-30] MEDS: CEFEPIME HCL IN DEXTROSE 5 % 1 GM in Premix Bag 1 BAG IVPB SCH ×2 (12:03→21:20)
[2020-10-30] MEDS: EPOETIN ALFA-EPBX (ESRD) 3,000 UNIT/ML VIAL SC SCH (12:04)
[2020-10-30] MEDS: EPOETIN ALFA-EPBX (ESRD) 2,000 UNIT/ML VIAL SC SCH (12:04)
[2020-10-30] MEDS: Dexamethasone 4 mg/ml Vial SLOW IVP SCH (16:54)
[2020-10-30] MEDS: Atorvastatin Calcium 40 MG TAB PO SCH (21:20)
[2020-10-31] MEDS: HumaLOG 300 UNITS/3 ML VIAL SC PRN ×2 (06:31→10:40)
[2020-10-31] MEDS ORDERED: CEFEPIME IVPB PRN (07:23)
[2020-10-31] MEDS: Sevelamer Carbonate 800 MG TAB PO SCH ×3 (08:30→17:33)
[2020-10-31] MEDS: Saccharomyces boulardii 250 MG CAP PO SCH (08:31)
[2020-10-31] MEDS: Aspirin Chewable 81 MG TAB PO SCH (08:31)
[2020-10-31] MEDS: Clopidogrel Bisulfate 75 MG TAB PO SCH (08:31)
[2020-10-31] MEDS: Lantus 1000 UNITS/10 ML VIAL SC SCH ×2 (08:39→21:33)
[2020-10-31] MEDS: Midodrine HCl 5 MG TAB PO SCH ×3 (10:23→21:32)
[2020-10-31] MEDS: Dexamethasone 4 mg/ml Vial SLOW IVP SCH (17:33)
[2020-10-31] MEDS: Atorvastatin Calcium 40 MG TAB PO SCH (19:55)
[2020-10-31] MEDS ORDERED: Cefepime 0.5 GM, Admixture Fee 1 EACH in Sodium Chloride 0.9% 100 ML IVPB SCH (21:00)
[2020-11-01 04:45] LABS: Hemoglobin 8.2 g/dL (14.0-18.0); Mean Corpuscular HGB CONC 32.1 g/dL (32.0-36.0); Mean Corpuscular Hemoglobin 31.8 pg (27.0-31.0); Mean Corpuscular Volume 98.8 fL (78.0-98.0); Mean Platelet Volume 7.9 fL (7.4-10.4); Platelet Count 176 thou/uL (130-400); RBC Distribution Width 14.9 % (11.5-14.5); Red Blood Cell (RBC) Count 2.58 mill/uL (4.70-6.10); White Blood Cell (WBC) Count 12.9 thou/uL (4.8-10.8)
[2020-11-01 04:57] LABS: ALT (SGPT) 54 U/L (8-55); AST (SGOT) 54 U/L (5-34); Albumin 2.6 g/dL (3.4-4.8); Alkaline Phosphatase 151 U/L (40-110); Anion Gap 18 mmol/L (10-20); BUN (Urea Nitrogen) 78 mg/dL (8.4-25.7); Bilirubin, Total 0.8 mg/dL (0.2-1.2); CRP (Inflammatory) 8.83 mg/dL (= or < 0.5); Calc. Creatinine Clearance 14 mL/min (70-130); Calcium 8.1 mg/dL (7.8-10.44); Carbon Dioxide 24 mmol/L (23-31); Chloride 97 mmol/L (98-107); Globulin 2.9 g/dL (2.4-3.5); Glucose 194 mg/dL (80-115); Potassium 4.7 mmol/L (3.5-5.1); Protein, Total 5.5 g/dL (5.8-8.1); Sodium 134 mmol/L (136-145)
[2020-11-01] MEDS: HumaLOG 300 UNITS/3 ML VIAL SC PRN ×2 (05:57→17:53)
[2020-11-01 06:09] LABS: Band 9 % (5-11); Lymphocytes 5 % (21-51); MDiff Complete? YES; Myelocyte 1 % (0-0); Neutrophil 85 % (42-75)
[2020-11-01] MEDS: Lantus 1000 UNITS/10 ML VIAL SC SCH ×2 (14:08→20:40)
[2020-11-01] MEDS: Sevelamer Carbonate 800 MG TAB PO SCH ×3 (14:08→16:32)
[2020-11-01] MEDS: Midodrine HCl 5 MG TAB PO SCH ×3 (14:08→20:51)
[2020-11-01] MEDS: Clopidogrel Bisulfate 75 MG TAB PO SCH (14:11)
[2020-11-01] MEDS: Aspirin Chewable 81 MG TAB PO SCH (14:11)
[2020-11-01] MEDS: Saccharomyces boulardii 250 MG CAP PO SCH (14:12)
[2020-11-01] MEDS: EPOETIN ALFA-EPBX (ESRD) 2,000 UNIT/ML VIAL SC SCH (14:14)
[2020-11-01] MEDS: EPOETIN ALFA-EPBX (ESRD) 3,000 UNIT/ML VIAL SC SCH (14:18)
[2020-11-01] MEDS: Dexamethasone 4 mg/ml Vial SLOW IVP SCH (16:32)
[2020-11-01] MEDS: Atorvastatin Calcium 40 MG TAB PO SCH (20:39)
[2020-11-01] MEDS ORDERED: Senokot S 8.6-50 MG TAB PO SCH (22:15)
[2020-11-02] MEDS: HumaLOG 300 UNITS/3 ML VIAL SC PRN ×3 (05:30→18:13)
[2020-11-02] MEDS: Sevelamer Carbonate 800 MG TAB PO SCH ×3 (09:12→16:43)
[2020-11-02] MEDS: Aspirin Chewable 81 MG TAB PO SCH (09:12)
[2020-11-02] MEDS: Saccharomyces boulardii 250 MG CAP PO SCH (09:13)
[2020-11-02] MEDS: Senokot S 8.6-50 MG TAB PO SCH ×2 (09:13→21:05)
[2020-11-02] MEDS: Clopidogrel Bisulfate 75 MG TAB PO SCH (09:14)
[2020-11-02] MEDS: Midodrine HCl 5 MG TAB PO SCH ×3 (09:14→21:05)
[2020-11-02] MEDS: Lantus 1000 UNITS/10 ML VIAL SC SCH ×2 (09:15→21:05)
[2020-11-02] MEDS ORDERED: Torsemide 100 MG TAB PO SCH (10:30)
[2020-11-02] MEDS: Dexamethasone 4 mg/ml Vial SLOW IVP SCH (18:14)
[2020-11-02] MEDS: Atorvastatin Calcium 40 MG TAB PO SCH (21:04)
[2020-11-03 05:35] LABS: #Lymphocytes 0.4 thou/uL (1.20-3.40); #Monocytes 0.5 thou/uL (0.11-0.59); %Basophils 0.1 % (0.0-1.0); %Eosinophils 0.2 % (0.0-10.0); %Lymphocytes 3.4 % (21.0-51.0); %Monocytes 4.4 % (0.0-10.0); %Neutrophils 91.9 % (42.0-75.0); Hemoglobin 7.8 g/dL (14.0-18.0); Mean Corpuscular HGB CONC 33.2 g/dL (32.0-36.0); Mean Corpuscular Hemoglobin 32.5 pg (27.0-31.0); Mean Corpuscular Volume 97.9 fL (78.0-98.0); Mean Platelet Volume 7.9 fL (7.4-10.4); Platelet Count 176 thou/uL (130-400); RBC Distribution Width 15.1 % (11.5-14.5); White Blood Cell (WBC) Count 11.9 thou/uL (4.8-10.8)
[2020-11-03 06:00] LABS: Albumin 2.3 g/dL (3.4-4.8); Anion Gap 18 mmol/L (10-20); BUN (Urea Nitrogen) 77 mg/dL (8.4-25.7); BUN/Creatinine Ratio 10.52; Calc. Creatinine Clearance 16 mL/min (70-130); Carbon Dioxide 25 mmol/L (23-31); Chloride 98 mmol/L (98-107); Glucose 148 mg/dL (80-115); Phosphorus 5.6 mg/dL (2.3-4.7); Potassium 4.7 mmol/L (3.5-5.1); Sodium 136 mmol/L (136-145)
[2020-11-03] MEDS: Clopidogrel Bisulfate 75 MG TAB PO SCH (08:51)
[2020-11-03] MEDS: Senokot S 8.6-50 MG TAB PO SCH ×2 (08:51→21:14)
[2020-11-03] MEDS: Saccharomyces boulardii 250 MG CAP PO SCH (08:51)
[2020-11-03] MEDS: Sevelamer Carbonate 800 MG TAB PO SCH ×3 (08:51→18:55)
[2020-11-03] MEDS: Aspirin Chewable 81 MG TAB PO SCH (08:52)
[2020-11-03] MEDS: Torsemide 100 MG TAB PO SCH (08:52)
[2020-11-03] MEDS: Midodrine HCl 5 MG TAB PO SCH ×3 (08:54→21:13)
[2020-11-03] MEDS: Lantus 1000 UNITS/10 ML VIAL SC SCH ×2 (08:55→21:15)
[2020-11-03] MEDS: HumaLOG 300 UNITS/3 ML VIAL SC PRN (13:43)
[2020-11-03] MEDS: Dexamethasone 4 mg/ml Vial SLOW IVP SCH (18:54)
[2020-11-03] MEDS: Atorvastatin Calcium 40 MG TAB PO SCH (21:14)
[2020-11-04] MEDS: Saccharomyces boulardii 250 MG CAP PO SCH ×2 (09:55→16:25)
[2020-11-04] MEDS: Aspirin Chewable 81 MG TAB PO SCH ×2 (09:55→16:25)
[2020-11-04] MEDS: Senokot S 8.6-50 MG TAB PO SCH ×3 (09:55→20:23)
[2020-11-04] MEDS: Sevelamer Carbonate 800 MG TAB PO SCH ×4 (09:55→18:26)
[2020-11-04] MEDS: Clopidogrel Bisulfate 75 MG TAB PO SCH ×2 (09:55→16:24)
[2020-11-04] MEDS: Lantus 1000 UNITS/10 ML VIAL SC SCH ×3 (09:57→20:23)
[2020-11-04] MEDS: Torsemide 100 MG TAB PO SCH ×2 (10:06→16:24)
[2020-11-04] MEDS: Midodrine HCl 5 MG TAB PO SCH ×3 (16:07→20:23)
[2020-11-04] MEDS: Dexamethasone 4 mg/ml Vial SLOW IVP SCH (16:25)
[2020-11-04] MEDS: EPOETIN ALFA-EPBX (ESRD) 3,000 UNIT/ML VIAL SC SCH (16:29)
[2020-11-04] MEDS: EPOETIN ALFA-EPBX (ESRD) 2,000 UNIT/ML VIAL SC SCH (16:30)
[2020-11-04] MEDS ORDERED: Magnesium Citrate 300 ML BOT PO SCH (17:15)
[2020-11-04] MEDS: Atorvastatin Calcium 40 MG TAB PO SCH (20:23)
[2020-11-05 05:51] LABS: Hemoglobin 8.3 g/dL (14.0-18.0); Mean Corpuscular HGB CONC 32.6 g/dL (32.0-36.0); Mean Corpuscular Hemoglobin 32.3 pg (27.0-31.0); Mean Corpuscular Volume 99.1 fL (78.0-98.0); Mean Platelet Volume 7.8 fL (7.4-10.4); Platelet Count 192 thou/uL (130-400); RBC Distribution Width 15.7 % (11.5-14.5); Red Blood Cell (RBC) Count 2.56 mill/uL (4.70-6.10); White Blood Cell (WBC) Count 10.5 thou/uL (4.8-10.8)
[2020-11-05 05:55] LABS: Albumin 2.5 g/dL (3.4-4.8); Anion Gap 14 mmol/L (10-20); BUN (Urea Nitrogen) 69 mg/dL (8.4-25.7); BUN/Creatinine Ratio 9.61; Calc. Creatinine Clearance 16 mL/min (70-130); Carbon Dioxide 31 mmol/L (23-31); Chloride 95 mmol/L (98-107); Glucose 172 mg/dL (80-115); Phosphorus 4.9 mg/dL (2.3-4.7); Potassium 4.8 mmol/L (3.5-5.1); Sodium 135 mmol/L (136-145)
[2020-11-05] MEDS: HumaLOG 300 UNITS/3 ML VIAL SC PRN ×3 (06:41→16:18)
[2020-11-05 08:06] LABS: MDiff Complete? YES
[2020-11-05 08:07] LABS: Band 1 % (5-11); Lymphocytes 9 % (21-51); Monocytes 9 % (0-10); Myelocyte 2 % (0-0); Neutrophil 79 % (42-75); Platelet Morphology Comment Appears Adequate; Polychromasia SLIGHT = 2-3 cells (100X) (0-2/hpf)
[2020-11-05] MEDS: Lantus 1000 UNITS/10 ML VIAL SC SCH ×2 (09:00→20:53)
[2020-11-05] MEDS: Aspirin Chewable 81 MG TAB PO SCH (09:01)
[2020-11-05] MEDS: Clopidogrel Bisulfate 75 MG TAB PO SCH (09:01)
[2020-11-05] MEDS: Saccharomyces boulardii 250 MG CAP PO SCH (09:01)
[2020-11-05] MEDS: Sevelamer Carbonate 800 MG TAB PO SCH ×3 (09:01→16:21)
[2020-11-05] MEDS: Senokot S 8.6-50 MG TAB PO SCH ×2 (09:01→20:54)
[2020-11-05] MEDS: Midodrine HCl 5 MG TAB PO SCH ×3 (09:02→20:54)
[2020-11-05] MEDS: Torsemide 100 MG TAB PO SCH (10:29)
[2020-11-05] MEDS: Dexamethasone 4 mg/ml Vial SLOW IVP SCH (11:41)
[2020-11-05] MEDS: Atorvastatin Calcium 40 MG TAB PO SCH (20:54)
[2020-11-06] MEDS: Saccharomyces boulardii 250 MG CAP PO SCH (09:26)
[2020-11-06] MEDS: Sevelamer Carbonate 800 MG TAB PO SCH ×3 (09:26→17:03)
[2020-11-06] MEDS: Torsemide 100 MG TAB PO SCH (09:27)
[2020-11-06] MEDS: Aspirin Chewable 81 MG TAB PO SCH (09:27)
[2020-11-06] MEDS: Clopidogrel Bisulfate 75 MG TAB PO SCH (09:27)
[2020-11-06] MEDS: Senokot S 8.6-50 MG TAB PO SCH ×2 (09:27→23:14)
[2020-11-06] MEDS: Lantus 1000 UNITS/10 ML VIAL SC SCH ×2 (09:28→23:14)
[2020-11-06] MEDS: Midodrine HCl 5 MG TAB PO SCH ×3 (09:33→23:14)
[2020-11-06] MEDS: EPOETIN ALFA-EPBX (ESRD) 3,000 UNIT/ML VIAL SC SCH (11:16)
[2020-11-06] MEDS: EPOETIN ALFA-EPBX (ESRD) 2,000 UNIT/ML VIAL SC SCH (11:17)
[2020-11-06] MEDS: Dexamethasone 4 mg/ml Vial SLOW IVP SCH (11:18)
[2020-11-06] MEDS: HumaLOG 300 UNITS/3 ML VIAL SC PRN (17:04)
[2020-11-06] MEDS: Atorvastatin Calcium 40 MG TAB PO SCH (23:14)
[2020-11-07] MEDS: Clopidogrel Bisulfate 75 MG TAB PO SCH (09:38)
[2020-11-07] MEDS: Senokot S 8.6-50 MG TAB PO SCH ×2 (09:38→20:10)
[2020-11-07] MEDS: Aspirin Chewable 81 MG TAB PO SCH (09:38)
[2020-11-07] MEDS: Saccharomyces boulardii 250 MG CAP PO SCH (09:39)
[2020-11-07] MEDS: Sevelamer Carbonate 800 MG TAB PO SCH ×3 (09:39→16:36)
[2020-11-07] MEDS: Lantus 1000 UNITS/10 ML VIAL SC SCH ×2 (09:39→20:11)
[2020-11-07] MEDS: Torsemide 100 MG TAB PO SCH (09:40)
[2020-11-07] MEDS: Dexamethasone 4 mg/ml Vial SLOW IVP SCH (12:29)
[2020-11-08] MEDS: Ondansetron PF 4 MG/2 ML Vial IVP PRN (04:44)
[2020-11-08] MEDS: Dextrose 50% Abboject 50 ML SYRINGE SLOW IVP PRN (06:45)
[2020-11-08] MEDS ORDERED: Midodrine HCl 5 MG TAB PO SCH (07:30)
[2020-11-08] MEDS ORDERED: Sodium Chloride 0.9% 500 ML IVPB SCH (07:45)
[2020-11-08] MEDS: Aspirin Chewable 81 MG TAB PO SCH (08:14)
[2020-11-08] MEDS: Sevelamer Carbonate 800 MG TAB PO SCH ×3 (08:14→18:34)
[2020-11-08] MEDS: Clopidogrel Bisulfate 75 MG TAB PO SCH (08:15)
[2020-11-08] MEDS: Benzonatate 100 MG CAP PO PRN (08:15)
[2020-11-08] MEDS: Senokot S 8.6-50 MG TAB PO SCH ×2 (08:15→21:31)
[2020-11-08 11:16] LABS: Albumin 2.7 g/dL (3.4-4.8); Anion Gap 16 mmol/L (10-20); BUN (Urea Nitrogen) 55 mg/dL (8.4-25.7); Calc. Creatinine Clearance 17 mL/min (70-130); Calcium 8.2 mg/dL (7.8-10.44); Carbon Dioxide 28 mmol/L (23-31); Chloride 97 mmol/L (98-107); Glucose 148 mg/dL (80-115); Phosphorus 5.1 mg/dL (2.3-4.7); Potassium 4.4 mmol/L (3.5-5.1); Sodium 137 mmol/L (136-145)
[2020-11-08 11:31] LABS: Anisocytosis SLIGHT = 6-15 cells (100X) (0-5/hpf); Band 10 % (5-11); Hemoglobin 8.8 g/dL (14.0-18.0); Lymphocytes 7 % (21-51); MDiff Complete? YES; Mean Corpuscular HGB CONC 32.5 g/dL (32.0-36.0); Mean Corpuscular Hemoglobin 32.5 pg (27.0-31.0); Mean Platelet Volume 7.5 fL (7.4-10.4); Monocytes 11 % (0-10); Neutrophil 72 % (42-75); Platelet Count 233 thou/uL (130-400); Platelet Morphology Comment Appears Adequate; RBC Distribution Width 15.8 % (11.5-14.5); Red Blood Cell (RBC) Count 2.72 mill/uL (4.70-6.10); White Blood Cell (WBC) Count 13.9 thou/uL (4.8-10.8)
[2020-11-08] MEDS: Dexamethasone 4 mg/ml Vial SLOW IVP SCH (17:05)
[2020-11-08] MEDS: Midodrine HCl 5 MG TAB PO SCH ×2 (17:06→21:31)
[2020-11-08] MEDS: EPOETIN ALFA-EPBX (ESRD) 3,000 UNIT/ML VIAL SC SCH (17:55)
[2020-11-08] MEDS: EPOETIN ALFA-EPBX (ESRD) 2,000 UNIT/ML VIAL SC SCH (17:55)
[2020-11-08] MEDS: Atorvastatin Calcium 40 MG TAB PO SCH (21:31)
[2020-11-09] MEDS: Acetaminophen 325 MG TAB PO PRN ×2 (01:58→23:13)
[2020-11-09 04:56] LABS: #Lymphocytes 0.5 thou/uL (1.20-3.40); #Monocytes 1.2 thou/uL (0.11-0.59); #Neutrophils 8.4 thou/uL (1.40-6.50); %Basophils 0.1 % (0.0-1.0); %Eosinophils 0.5 % (0.0-10.0); %Lymphocytes 5.3 % (21.0-51.0); %Monocytes 11.5 % (0.0-10.0); %Neutrophils 82.6 % (42.0-75.0); Hemoglobin 8.2 g/dL (14.0-18.0); Mean Corpuscular HGB CONC 33.1 g/dL (32.0-36.0); Mean Corpuscular Hemoglobin 33.4 pg (27.0-31.0); Mean Platelet Volume 7.2 fL (7.4-10.4); Platelet Count 200 thou/uL (130-400); RBC Distribution Width 15.8 % (11.5-14.5); Red Blood Cell (RBC) Count 2.45 mill/uL (4.70-6.10); White Blood Cell (WBC) Count 10.1 thou/uL (4.8-10.8)
[2020-11-09 05:21] LABS: Anion Gap 12 mmol/L (10-20); BUN (Urea Nitrogen) 33 mg/dL (8.4-25.7); Calc. Creatinine Clearance 25 mL/min (70-130); Calcium 8.2 mg/dL (7.8-10.44); Carbon Dioxide 31 mmol/L (23-31); Chloride 98 mmol/L (98-107); Glucose 153 mg/dL (80-115); Potassium 4.3 mmol/L (3.5-5.1); Sodium 137 mmol/L (136-145)
[2020-11-09] MEDS: Aspirin Chewable 81 MG TAB PO SCH (08:45)
[2020-11-09] MEDS: Clopidogrel Bisulfate 75 MG TAB PO SCH (08:45)
[2020-11-09] MEDS: Senokot S 8.6-50 MG TAB PO SCH ×2 (08:45→19:56)
[2020-11-09] MEDS: Sevelamer Carbonate 800 MG TAB PO SCH ×3 (08:46→16:40)
[2020-11-09] MEDS: Midodrine HCl 5 MG TAB PO SCH ×3 (08:47→19:56)
[2020-11-09] MEDS: Dexamethasone 4 mg/ml Vial SLOW IVP SCH (12:30)
[2020-11-09] MEDS: HumaLOG 300 UNITS/3 ML VIAL SC PRN ×2 (12:30→17:46)
[2020-11-09] MEDS: Atorvastatin Calcium 40 MG TAB PO SCH (19:56)
[2020-11-10] MEDS: Acetaminophen/Codeine 30-300mg Tablet PO PRN (03:05)
[2020-11-10] MEDS: Clopidogrel Bisulfate 75 MG TAB PO SCH (08:58)
[2020-11-10] MEDS: Aspirin Chewable 81 MG TAB PO SCH (08:59)
[2020-11-10] MEDS: Senokot S 8.6-50 MG TAB PO SCH ×2 (08:59→20:04)
[2020-11-10] MEDS: Sevelamer Carbonate 800 MG TAB PO SCH ×3 (08:59→16:47)
[2020-11-10] MEDS: Midodrine HCl 5 MG TAB PO SCH ×3 (09:00→20:05)
[2020-11-10] MEDS: Dexamethasone 4 mg/ml Vial SLOW IVP SCH (11:08)
[2020-11-10] MEDS: HumaLOG 300 UNITS/3 ML VIAL SC PRN ×2 (11:09→17:40)
[2020-11-10] MEDS: Atorvastatin Calcium 40 MG TAB PO SCH (20:04)
[2020-11-11] MEDS: Dexamethasone 1 MG TAB PO SCH ×2 (10:16→15:00)
[2020-11-11] MEDS: Aspirin Chewable 81 MG TAB PO SCH (10:16)
[2020-11-11] MEDS: Clopidogrel Bisulfate 75 MG TAB PO SCH (10:16)
[2020-11-11] MEDS: Sevelamer Carbonate 800 MG TAB PO SCH ×3 (10:16→12:50)
[2020-11-11] MEDS: Senokot S 8.6-50 MG TAB PO SCH ×2 (10:17→20:23)
[2020-11-11] MEDS: Midodrine HCl 5 MG TAB PO SCH ×3 (10:17→20:23)
[2020-11-11] MEDS: EPOETIN ALFA-EPBX (ESRD) 3,000 UNIT/ML VIAL SC SCH (13:42)
[2020-11-11] MEDS: EPOETIN ALFA-EPBX (ESRD) 2,000 UNIT/ML VIAL SC SCH (13:42)
[2020-11-11] MEDS: Atorvastatin Calcium 40 MG TAB PO SCH (20:23)
[2020-11-12] MEDS: Senokot S 8.6-50 MG TAB PO SCH ×2 (08:44→21:47)
[2020-11-12] MEDS: Aspirin Chewable 81 MG TAB PO SCH (08:44)
[2020-11-12] MEDS: Clopidogrel Bisulfate 75 MG TAB PO SCH (08:44)
[2020-11-12] MEDS: Sevelamer Carbonate 800 MG TAB PO SCH ×3 (08:44→17:30)
[2020-11-12] MEDS: Dexamethasone 1 MG TAB PO SCH (08:47)
[2020-11-12] MEDS: Midodrine HCl 5 MG TAB PO SCH ×3 (08:47→21:47)
[2020-11-12] MEDS: HumaLOG 300 UNITS/3 ML VIAL SC PRN ×2 (12:43→17:29)
[2020-11-12] MEDS ORDERED: Polyethylene Glycol 3350 17 GM Packet PO SCH (18:30)
[2020-11-12] MEDS: Atorvastatin Calcium 40 MG TAB PO SCH (21:48)
[2020-11-12] MEDS: Diclofenac 1% 100 GM GEL TP SCH (21:48)
[2020-11-13] MEDS ORDERED: EPOETIN ALFA-EPBX (ESRD) 2,000 UNIT/ML VIAL SC SCH
[2020-11-13] MEDS: HumaLOG 300 UNITS/3 ML VIAL SC PRN (06:32)
[2020-11-13] MEDS: Sevelamer Carbonate 800 MG TAB PO SCH ×3 (08:33→15:57)
[2020-11-13] MEDS: Aspirin Chewable 81 MG TAB PO SCH (09:17)
[2020-11-13] MEDS: Dexamethasone 1 MG TAB PO SCH (09:17)
[2020-11-13] MEDS: Clopidogrel Bisulfate 75 MG TAB PO SCH (09:17)
[2020-11-13] MEDS: Senokot S 8.6-50 MG TAB PO SCH ×2 (09:18→20:06)
[2020-11-13] MEDS: Diclofenac 1% 100 GM GEL TP SCH ×4 (09:18→20:06)
[2020-11-13] MEDS: Midodrine HCl 5 MG TAB PO SCH ×3 (09:18→20:06)
[2020-11-13] MEDS: EPOETIN ALFA-EPBX (ESRD) 3,000 UNIT/ML VIAL SC SCH (09:38)
[2020-11-13] MEDS: EPOETIN ALFA-EPBX (ESRD) 2,000 UNIT/ML VIAL SC SCH (09:38)
[2020-11-13] MEDS: Atorvastatin Calcium 40 MG TAB PO SCH (20:05)
[2020-11-14 05:52] LABS: Anion Gap 13 mmol/L (10-20); BUN (Urea Nitrogen) 27 mg/dL (8.4-25.7); Calc. Creatinine Clearance 27 mL/min (70-130); Calcium 8.3 mg/dL (7.8-10.44); Carbon Dioxide 30 mmol/L (23-31); Chloride 98 mmol/L (98-107); Glucose 135 mg/dL (80-115); Potassium 3.7 mmol/L (3.5-5.1); Sodium 137 mmol/L (136-145)
[2020-11-14 05:53] LABS: Hemoglobin 8.5 g/dL (14.0-18.0); Mean Corpuscular HGB CONC 30.9 g/dL (32.0-36.0); Mean Corpuscular Hemoglobin 31.4 pg (27.0-31.0); Mean Platelet Volume 7.1 fL (7.4-10.4); Platelet Count 152 thou/uL (130-400); RBC Distribution Width 16.2 % (11.5-14.5); White Blood Cell (WBC) Count 11.1 thou/uL (4.8-10.8)
[2020-11-14 05:54] LABS: Band 1 % (5-11); Eosinophils 1 % (0-10); Hypochromia SLIGHT = 6-15 cells (100X) (0-5/hpf); Lymphocytes 9 % (21-51); MDiff Complete? YES; Macrocytosis SLIGHT = 6-15 cells (100X) (0-5/hpf); Neutrophil 89 % (42-75); Platelet Morphology Comment Appears Adequate
[2020-11-14] MEDS: Midodrine HCl 5 MG TAB PO SCH ×3 (08:57→20:51)
[2020-11-14] MEDS: Sevelamer Carbonate 800 MG TAB PO SCH ×3 (08:58→16:45)
[2020-11-14] MEDS: Clopidogrel Bisulfate 75 MG TAB PO SCH (08:58)
[2020-11-14] MEDS: Dexamethasone 1 MG TAB PO SCH (08:58)
[2020-11-14] MEDS: Senokot S 8.6-50 MG TAB PO SCH ×2 (08:58→20:50)
[2020-11-14] MEDS: Aspirin Chewable 81 MG TAB PO SCH (08:58)
[2020-11-14] MEDS: Diclofenac 1% 100 GM GEL TP SCH ×4 (08:59→20:48)
[2020-11-14] MEDS: Lantus 1000 UNITS/10 ML VIAL SC SCH ×2 (09:46→20:52)
[2020-11-14 16:58] LABS: Magnesium 2.2 mg/dL (1.6-2.6)
[2020-11-14] MEDS ORDERED: Sodium Chloride 0.9% 250 ML IV SCH ×2 (19:30→20:00)
[2020-11-14] MEDS: Atorvastatin Calcium 40 MG TAB PO SCH (20:51)
[2020-11-14 21:42] LABS: SARS-CoV-2 NAA Rapid Test DETECTED (NotDetected)
[2020-11-15] MEDS: Sevelamer Carbonate 800 MG TAB PO SCH ×3 (07:41→16:35)
[2020-11-15] MEDS: Aspirin Chewable 81 MG TAB PO SCH (07:41)
[2020-11-15] MEDS: Lantus 1000 UNITS/10 ML VIAL SC SCH ×2 (07:42→21:21)
[2020-11-15] MEDS: Diclofenac 1% 100 GM GEL TP SCH ×4 (07:46→21:20)
[2020-11-15] MEDS: Midodrine HCl 5 MG TAB PO SCH ×3 (07:47→21:19)
[2020-11-15] MEDS: Dexamethasone 1 MG TAB PO SCH (07:48)
[2020-11-15] MEDS: Senokot S 8.6-50 MG TAB PO SCH ×2 (07:48→21:46)
[2020-11-15] MEDS: Clopidogrel Bisulfate 75 MG TAB PO SCH (07:48)
[2020-11-15 09:43] VITALS: BMI 34.5
[2020-11-15] MEDS: EPOETIN ALFA-EPBX (ESRD) 2,000 UNIT/ML VIAL SC SCH (16:34)
[2020-11-15] MEDS: EPOETIN ALFA-EPBX (ESRD) 3,000 UNIT/ML VIAL SC SCH (16:34)
[2020-11-15] MEDS: Atorvastatin Calcium 40 MG TAB PO SCH (21:19)
[2020-11-16] MEDS: Dexamethasone 1 MG TAB PO SCH (09:15)
[2020-11-16] MEDS: Sevelamer Carbonate 800 MG TAB PO SCH ×3 (09:15→17:34)
[2020-11-16] MEDS: Clopidogrel Bisulfate 75 MG TAB PO SCH (09:16)
[2020-11-16] MEDS: Senokot S 8.6-50 MG TAB PO SCH ×2 (09:16→22:41)
[2020-11-16] MEDS: Midodrine HCl 5 MG TAB PO SCH ×3 (09:16→20:18)
[2020-11-16] MEDS: Aspirin Chewable 81 MG TAB PO SCH (09:16)
[2020-11-16] MEDS: Lantus 1000 UNITS/10 ML VIAL SC SCH ×3 (09:16→20:31)
[2020-11-16] MEDS: Diclofenac 1% 100 GM GEL TP SCH ×4 (09:29→20:22)
[2020-11-16] MEDS ORDERED: Fentanyl 100 MCG/2 ML VIAL ONE (10:36)
[2020-11-16] MEDS ORDERED: Bupivacaine 0.25% HCL 30 ML VIAL ONE (10:37)
[2020-11-16] MEDS ORDERED: EPINEPHrine 1 MG/10 ML Abboject SYRINGE ONE (10:37)
[2020-11-16] MEDS ORDERED: EPINEPHrine 1 MG/ML AMP ONE (10:38)
[2020-11-16] MEDS ORDERED: ceFAZolin 2 GM/Dextrose 50 ML IVPB ONE (10:56)
[2020-11-16] MEDS ORDERED: Ketamine 50 MG/ML (10ML VIAL) ONE (11:00)
[2020-11-16] MEDS ORDERED: Ondansetron PF 4 MG/2 ML Vial ONE (11:15)
[2020-11-16] MEDS ORDERED: Calcium Chloride 1 GM/10 ML Abboject SYRINGE ONE (11:15)
[2020-11-16] MEDS ORDERED: PROPOFOL 200 MG/20 ML VIAL ONE (11:15)
[2020-11-16] MEDS ORDERED: PHENYLEPHRINE-NS 100 MCG/ML 10 ML SYRINGE ONE (11:15)
[2020-11-16] MEDS ORDERED: ePHEDrine 50 MG/ML VIAL ONE (11:15)
[2020-11-16] MEDS ORDERED: Phenylephrine 10 MG/ML VIAL ONE (12:15)
[2020-11-16] MEDS ORDERED: Promethazine HCl 25 MG/ML VIAL IVPB PRN (13:23)
[2020-11-16] MEDS ORDERED: Ondansetron HCl/PF 4 MG/2 ML Vial IVP PRN (13:23)
[2020-11-16] MEDS ORDERED: Promethazine HCl 25 MG/ML VIAL IM PRN (13:23)
[2020-11-16] MEDS ORDERED: Piperacillin/Tazobactam 3.375 GM in Sodium Chloride 0.9% 100 ML IVPB SCH (15:45)
[2020-11-16] MEDS: Acetaminophen/Codeine 30-300mg Tablet PO PRN (15:54)
[2020-11-16] MEDS: Piperacillin/Tazobactam 3.375 GM in Sodium Chloride 0.9% 100 ML IVPB SCH (20:17)
[2020-11-16] MEDS: Atorvastatin Calcium 40 MG TAB PO SCH (20:18)
[2020-11-16] MEDS ORDERED: Piperacillin/Tazobactam 2.25 GM in Sodium Chloride 0.9% 100 ML IVPB SCH (22:00)
[2020-11-17] MEDS ORDERED: traMADol HCl 50 MG TAB PO PRN (02:53)
[2020-11-17] MEDS: Piperacillin/Tazobactam 3.375 GM in Sodium Chloride 0.9% 100 ML IVPB SCH ×3 (04:27→21:46)
[2020-11-17] MEDS: Senokot S 8.6-50 MG TAB PO SCH ×2 (09:05→21:47)
[2020-11-17] MEDS: Dexamethasone 1 MG TAB PO SCH (09:05)
[2020-11-17] MEDS: Midodrine HCl 5 MG TAB PO SCH ×3 (09:05→21:46)
[2020-11-17] MEDS: Clopidogrel Bisulfate 75 MG TAB PO SCH (09:06)
[2020-11-17] MEDS: Aspirin Chewable 81 MG TAB PO SCH (09:06)
[2020-11-17] MEDS: Sevelamer Carbonate 800 MG TAB PO SCH ×3 (09:06→15:42)
[2020-11-17] MEDS: Diclofenac 1% 100 GM GEL TP SCH ×4 (09:06→22:02)
[2020-11-17] MEDS: Lantus 1000 UNITS/10 ML VIAL SC SCH ×2 (09:06→21:48)
[2020-11-17 11:08] LABS: Band 8 % (5-11); Eosinophils 5 % (0-10); Hemoglobin 8.1 g/dL (14.0-18.0); Lymphocytes 11 % (21-51); MDiff Complete? YES; Mean Corpuscular HGB CONC 30.9 g/dL (32.0-36.0); Mean Corpuscular Hemoglobin 31.9 pg (27.0-31.0); Mean Platelet Volume 8.1 fL (7.4-10.4); Monocytes 7 % (0-10); Neutrophil 68 % (42-75); Platelet Count 138 thou/uL (130-400); RBC Distribution Width 16.2 % (11.5-14.5); Reactive Lymphocytes 1 % (0-10); Red Blood Cell (RBC) Count 2.53 mill/uL (4.70-6.10); White Blood Cell (WBC) Count 11.3 thou/uL (4.8-10.8)
[2020-11-17 11:10] LABS: ALT (SGPT) 43 U/L (8-55); AST (SGOT) 48 U/L (5-34); Albumin 2.2 g/dL (3.4-4.8); Alkaline Phosphatase 124 U/L (40-110); Anion Gap 16 mmol/L (10-20); BUN (Urea Nitrogen) 50 mg/dL (8.4-25.7); Bilirubin, Total 0.6 mg/dL (0.2-1.2); Calc. Creatinine Clearance 19 mL/min (70-130); Calcium 7.7 mg/dL (7.8-10.44); Carbon Dioxide 23 mmol/L (23-31); Chloride 101 mmol/L (98-107); Globulin 2.5 g/dL (2.4-3.5); Glucose 142 mg/dL (80-115); Potassium 4.9 mmol/L (3.5-5.1); Protein, Total 4.7 g/dL (5.8-8.1); Sodium 135 mmol/L (136-145)
[2020-11-17] MEDS: Atorvastatin Calcium 40 MG TAB PO SCH (21:47)
[2020-11-18] MEDS: Piperacillin/Tazobactam 3.375 GM in Sodium Chloride 0.9% 100 ML IVPB SCH ×3 (03:27→20:19)
[2020-11-18] MEDS: Midodrine HCl 5 MG TAB PO SCH ×3 (08:34→20:20)
[2020-11-18] MEDS: Albumin 25% 25 GM/100 ML BOT IVPB SCH ×3 (09:47→20:20)
[2020-11-18 11:28] LABS: Anion Gap 12 mmol/L (10-20); BUN (Urea Nitrogen) 32 mg/dL (8.4-25.7); Calc. Creatinine Clearance 29 mL/min (70-130); Carbon Dioxide 31 mmol/L (23-31); Chloride 100 mmol/L (98-107); Glucose 95 mg/dL (80-115); Potassium 3.6 mmol/L (3.5-5.1); Sodium 139 mmol/L (136-145)
[2020-11-18 11:29] LABS: #Eosinphils 0.2 thou/uL (0.0-0.7); #Lymphocytes 0.5 thou/uL (1.20-3.40); %Basophils 0.3 % (0.0-1.0); %Eosinophils 2.1 % (0.0-10.0); %Lymphocytes 4.7 % (21.0-51.0); %Monocytes 9.3 % (0.0-10.0); %Neutrophils 83.6 % (42.0-75.0); Hemoglobin 7.7 g/dL (14.0-18.0); Mean Corpuscular HGB CONC 33.1 g/dL (32.0-36.0); Mean Corpuscular Hemoglobin 32.7 pg (27.0-31.0); Mean Corpuscular Volume 98.7 fL (78.0-98.0); Mean Platelet Volume 7.9 fL (7.4-10.4); Platelet Count 170 thou/uL (130-400); Red Blood Cell (RBC) Count 2.35 mill/uL (4.70-6.10); White Blood Cell (WBC) Count 10.8 thou/uL (4.8-10.8)
[2020-11-18] MEDS: Sevelamer Carbonate 800 MG TAB PO SCH ×2 (14:17→15:43)
[2020-11-18] MEDS: Diclofenac 1% 100 GM GEL TP SCH ×4 (14:17→20:25)
[2020-11-18] MEDS: Lantus 1000 UNITS/10 ML VIAL SC SCH ×2 (14:18→20:17)
[2020-11-18] MEDS: Dexamethasone 1 MG TAB PO SCH (14:30)
[2020-11-18] MEDS: EPOETIN ALFA-EPBX (ESRD) 2,000 UNIT/ML VIAL SC SCH (14:31)
[2020-11-18] MEDS: Clopidogrel Bisulfate 75 MG TAB PO SCH (14:31)
[2020-11-18] MEDS: Senokot S 8.6-50 MG TAB PO SCH ×2 (14:31→20:17)
[2020-11-18] MEDS: Aspirin Chewable 81 MG TAB PO SCH (14:31)
[2020-11-18] MEDS: EPOETIN ALFA-EPBX (ESRD) 3,000 UNIT/ML VIAL SC SCH (14:31)
[2020-11-18] MEDS: traMADol HCl 50 MG TAB PO PRN (15:43)
[2020-11-18] MEDS: Atorvastatin Calcium 40 MG TAB PO SCH (20:20)
[2020-11-19] MEDS: Albumin 25% 25 GM/100 ML BOT IVPB SCH ×2 (02:15→08:44)
[2020-11-19 04:46] LABS: Hemoglobin 7.5 g/dL (14.0-18.0); Mean Corpuscular HGB CONC 31.9 g/dL (32.0-36.0); Mean Corpuscular Hemoglobin 32.7 pg (27.0-31.0); Platelet Count 171 thou/uL (130-400); RBC Distribution Width 16.3 % (11.5-14.5)
[2020-11-19] MEDS: Piperacillin/Tazobactam 3.375 GM in Sodium Chloride 0.9% 100 ML IVPB SCH (04:58)
[2020-11-19 04:59] LABS: #Eosinphils 0.2 thou/uL (0.0-0.7); #Lymphocytes 0.6 thou/uL (1.20-3.40); #Monocytes 0.9 thou/uL (0.11-0.59); #Neutrophils 8.4 thou/uL (1.40-6.50); %Basophils 0.1 % (0.0-1.0); %Eosinophils 1.8 % (0.0-10.0); %Lymphocytes 5.9 % (21.0-51.0); %Monocytes 8.5 % (0.0-10.0); %Neutrophils 83.7 % (42.0-75.0)
[2020-11-19 05:06] LABS: Anion Gap 15 mmol/L (10-20); BUN (Urea Nitrogen) 31 mg/dL (8.4-25.7); Calc. Creatinine Clearance 26 mL/min (70-130); Calcium 8.5 mg/dL (7.8-10.44); Carbon Dioxide 31 mmol/L (23-31); Chloride 99 mmol/L (98-107); Glucose 63 mg/dL (80-115); Potassium 4.7 mmol/L (3.5-5.1); Sodium 140 mmol/L (136-145)
[2020-11-19] MEDS: Dextrose 50% Abboject 50 ML SYRINGE SLOW IVP PRN (06:38)
[2020-11-19] MEDS: Ondansetron PF 4 MG/2 ML Vial IVP PRN ×2 (06:38→07:45)
[2020-11-19 07:40] VITALS: TEMP 97
[2020-11-19] MEDS: Senokot S 8.6-50 MG TAB PO SCH (08:42)
[2020-11-19] MEDS: Midodrine HCl 5 MG TAB PO SCH (08:42)
[2020-11-19] MEDS: Dexamethasone 1 MG TAB PO SCH (08:42)
[2020-11-19] MEDS: Clopidogrel Bisulfate 75 MG TAB PO SCH (08:42)
[2020-11-19] MEDS: Aspirin Chewable 81 MG TAB PO SCH (08:42)
[2020-11-19] MEDS: Diclofenac 1% 100 GM GEL TP SCH ×2 (08:45→13:26)
[2020-11-19] MEDS: Lantus 1000 UNITS/10 ML VIAL SC SCH (08:45)
[2020-11-19] MEDS: Sevelamer Carbonate 800 MG TAB PO SCH ×2 (08:58→13:26)
[2020-11-19 11:47] VITALS: BP 97/54
[2020-11-19] MEDS: traMADol HCl 50 MG TAB PO PRN (11:53)
[2020-11-19] MEDS ORDERED: Piperacillin/Tazobactam 3.375 GM in Sodium Chloride 0.9% 100 ML IVPB SCH (16:00)
== END 2020-11-19 14:41 | DRG 981 ==
LOC: ERS 10:28 → ERHOLD 13:26 → 2SW 19:22 → 2NO 11-12 19:23
PROVIDERS: ADMIT Internal Medicine; ATTEND Hospitalist
PROC: 8E0ZXY6 Isolation (ICD-10-PCS; 2020-10-22)
PROC: 30233L1 Transfusion of Nonautologous Fresh Plasma into Peripheral Vein, Percutaneous Approach (ICD-10-PCS; 2020-10-25)
PROC: 30233K1 Transfusion of Nonautologous Frozen Plasma into Peripheral Vein, Percutaneous Approach (ICD-10-PCS; 2020-10-25)
PROC: 5A09357 Assistance with Respiratory Ventilation, Less than 24 Consecutive Hours, Continuous Positive Airway Pressure (ICD-10-PCS; 2020-10-27)
PROC: 5A1D70Z Performance of Urinary Filtration, Intermittent, Less than 6 Hours Per Day (ICD-10-PCS; 2020-11-15)
PROC: 0KBP0ZZ Excision of Left Hip Muscle, Open Approach (ICD-10-PCS; principal; 2020-11-16)
PROC: 0KBN0ZZ Excision of Right Hip Muscle, Open Approach (ICD-10-PCS; 2020-11-16)
DX: U07.1 COVID-19 (principal); N18.6 End stage renal disease; J12.82 Pneumonia due to coronavirus disease 2019; J96.21 Acute and chronic respiratory failure with hypoxia; I50.43 Acute on chronic combined systolic (congestive) and diastolic (congestive) heart failure; I21.4 Non-ST elevation (NSTEMI) myocardial infarction; I13.2 Hypertensive heart and chronic kidney disease with heart failure and with stage 5 chronic kidney disease, or end stage renal disease; D62 Acute posthemorrhagic anemia; T82.191A Other mechanical complication of cardiac pulse generator (battery), initial encounter; E11.22 Type 2 diabetes mellitus with diabetic chronic kidney disease; I25.118 Atherosclerotic heart disease of native coronary artery with other forms of angina pectoris; E78.5 Hyperlipidemia, unspecified; G47.33 Obstructive sleep apnea (adult) (pediatric); I48.0 Paroxysmal atrial fibrillation; D63.1 Anemia in chronic kidney disease; I25.5 Ischemic cardiomyopathy; L89.150 Pressure ulcer of sacral region, unstageable; J44.9 Chronic obstructive pulmonary disease, unspecified; M79.675 Pain in left toe(s); E66.01 Morbid (severe) obesity due to excess calories; E87.5 Hyperkalemia; E83.39 Other disorders of phosphorus metabolism; M79.81 Nontraumatic hematoma of soft tissue; E88.09 Other disorders of plasma-protein metabolism, not elsewhere classified; Y83.1 Surgical operation with implant of artificial internal device as the cause of abnormal reaction of the patient, or of later complication, without mention of misadventure at the time of the procedure; I95.1 Orthostatic hypotension; Z99.2 Dependence on renal dialysis; Z95.5 Presence of coronary angioplasty implant and graft; Z79.02 Long term (current) use of antithrombotics/antiplatelets; Z79.899 Other long term (current) drug therapy; Z79.4 Long term (current) use of insulin; Z68.34 Body mass index [BMI] 34.0-34.9, adult
CPT/HCPCS: 36415; 36416; 36430; 71045; 71275; 74177; 80048; 80053; 80069; 82553; 82728; 83540; 83550; 83735; 83880; 84134; 84145; 84484; 85007; 85014; 85018; 85025; 85027; 85049; 85610; 85730; 86140; 86850; 86900; 86901; 87070; 87077; 87186; 87205; 90471; 90732; 90935; 93005; 93010; 93306; 93970; 94660; G0009; G0257; J0171; J0690; J0692; J1100; J1610; J1644; J1815; J2370; J2405; J2543; J2704; J3010; J3490; J7030; J8540; P9047; P9059; Q5105; Q9967; S0020; U0002